=== PATIENT | female | born 1950 | race Caucasian/White ===

== ENCOUNTER 2020-09-23 09:06 | Inpatient (IN) | payer MEDICARE, SELFPAY ==
[2020-09-23] VITALS (9 sets, daily range): BP systolic 117–155; BP diastolic 60–78; PULSE 48–60; RESP 10–18; TEMP 36.4–36.8; O2SAT 97–100; BMI 29.5
--- NOTE | 2020-09-23 | ECG_ITS ---
Test Reason : SOB Blood Pressure : / mmHG Vent. Rate : 052 BPM Atrial Rate : 052 BPM P-R Int : 154 ms QRS Dur : 150 ms QT Int : 512 ms P-R-T Axes : 045 -35 -16 degrees QTc Int : 476 ms Sinus bradycardia Left axis deviation Right bundle branch block Voltage criteria for left ventricular hypertrophy Abnormal ECG When compared with ECG of 03-JUL-2006 18:27, T wave inversion no longer evident in Anterolateral leads Referred By: Generic ED Physician Electronically Signed By:Loi Dorsey
--- NOTE | ~2020-09-23 | XR_ITS ---
EXAMINATION: XR CHEST CLINICAL INFORMATION: Chest pain, SOB COMPARISON: None TECHNIQUE: 2 views of the chest were obtained. FINDINGS: No significant abnormality is noted involving the heart, lungs, mediastinum, bony thorax or soft tissues. XR/XR chest 2V IMPRESSION: Unremarkable chest exam
--- NOTE | ~2020-09-23 | FL_ITS ---
EXAMINATION: XR FLUOROSCOPY WITH IMAGES CLINICAL INFORMATION: Dual-lead pacemaker COMPARISON: None. TECHNIQUE: Fluoroscopy performed by Dr. Fischer. Fluoroscopy time: 20.8 minutes DAP: 108 mGycm2 Images: 2 FINDINGS: Spot views over the heart shadow dual-lead pacemaker with lead in right atrium and right ventricle. FL/FL guidance in OR IMPRESSION: Dual-lead pacemaker in heart.
--- NOTE | ~2020-09-23 | XR_ITS ---
EXAMINATION: XR CHEST CLINICAL INFORMATION: Rule out pneumothorax. COMPARISON: 09/24/2020 TECHNIQUE: Frontal view of the chest was obtained. FINDINGS: Left pectoral dual-lead pacemaker is unchanged leads in the right atrium and right ventricle. Cardiac leads overlie the chest. Cardiac silhouette is within normal limits in size for technique. The cardiac and mediastinal contours are normal. No consolidation, pneumothorax, or pleural effusion. Pulmonary vasculature is unremarkable. Mild degenerative spondylosis in the thoracic spine. XR/XR chest 1V IMPRESSION: No pneumothorax. No acute pulmonary findings.
--- NOTE | ~2020-09-23 | XR_ITS ---
EXAMINATION: XR CHEST CLINICAL INFORMATION: Evaluate for pneumothorax COMPARISON: Chest x-ray 09/23/2020 TECHNIQUE: Frontal portable view of the chest was obtained. 5:14 PM FINDINGS: Pacemaker leads in right atrium and right ventricle. Lung volume low. The central pulmonary vessels are prominent accentuated by the low inspiratory effort. No focal consolidation. No pleural effusion. There is no pneumothorax. XR/XR chest 1V IMPRESSION: 1. No pneumothorax. 2. Low inspiratory effort causing prominence of the bronchovascular markings. 3. Cardiac pacemaker.
--- NOTE | 2020-09-23 07:25 | ECG_ITS ---
Test Reason : BRADYCARDIA Blood Pressure : / mmHG Vent. Rate : 061 BPM Atrial Rate : 061 BPM P-R Int : 154 ms QRS Dur : 152 ms QT Int : 528 ms P-R-T Axes : 025 -34 100 degrees QTc Int : 531 ms Normal sinus rhythm Left axis deviation Right bundle branch block Left ventricular hypertrophy with repolarization abnormality Abnormal ECG When compared with ECG of 23-SEP-2020 09:26, T wave inversion no longer evident in Inferior leads T wave inversion now evident in Anterolateral leads QT has lengthened Referred By: Nicole Garcia Electronically Signed By:Loi Dorsey
[2020-09-23 12:10] LABS: MANUAL DIFF FLAG NO
[2020-09-23 12:12] LABS: Basophils Percent Auto 0.7 % (0-2); Eosinophils Absolute Auto 0.1 X10*3/uL (0.0-0.4); Hematocrit 39.1 % (37-47); Hemoglobin 13.1 g/dl (12.0-16.0); Imm Gran Abs Auto 0.03 X10*3/uL (0.00-0.03); Imm Gran Pct Auto 0.5 % (0.0-0.4); Lymphocytes Absolute Auto 2.5 X10*3/uL (1.2-4.9); Lymphocytes Percent Auto 41.3 % (20-40); Mean Corpuscular HGB Conc 33.5 g/dl (31.0-35.0); Mean Corpuscular Hemoglobin 28.7 pg (27.0-33.0); Mean Corpuscular Volume 85.7 fL (80-98); Mean Platelet Volume 11.1 fL (9.4-12.3); Monocytes Absolute Auto 0.3 X10*3/uL (0.1-1.2); Monocytes Percent Auto 5.3 % (2-11); Neutrophils Absolute Auto 3.1 X10*3/uL (2.0-8.3); Neutrophils Percent Auto 51.2 % (45-73); Platelet Count 193 X10*3/uL (160-400); Red Blood Count 4.56 X10*6/uL (4.20-5.50); Red Cell Distribution Width 13.3 % (11.0-16.0); White Blood Count 6.1 X10*3/uL (4.8-10.8)
--- NOTE | 2020-09-23 12:17 | ED_ITS ---
HPI - Dizziness General Chief Complaint: Dizziness Stated Complaint: dizziness,sob Time Seen by Provider: 09/23/20 11:24 Source: patient Mode of arrival: ambulatory Limitations: no limitations History of Present Illness HPI Narrative: 70 yo female with history of htn, hld and hypothyroidism here with complaints of dizziness described as lightheadeness x 1 week worsened with position changes. Today while out walking had exertional SOB, diaphoresis and some chest discomfort which resolved after about 1 hr. Feels well at rest. Has been taking 100mg losaratan daily for several months, started hctz 12.5mg one month ago and feels this past week her blood pressure has been running low. She tells me low for her has been 119/50. She has also noted the heart rate to be low at rest down to 36bpm. NO beta blockers. No recent tick bites or illneses. Related Data Home Medications Medication Instructions Recorded Confirmed ascorbic acid (vitamin C) [Vitamin 500 mg PO DAILY 09/23/20 09/23/20 C] atorvastatin 1 tab PO DAILY 09/23/20 09/23/20 hydrochlorothiazide 1 cap PO DAILY 09/23/20 09/23/20 levothyroxine 1 tab PO DAILY 09/23/20 09/23/20 losartan 1 tab PO DAILY 09/23/20 09/23/20 venlafaxine 1 cap PO DAILY 09/23/20 09/23/20 vit C,Q-Jk-uwkoi-lutein-zeaxan 1 tab PO DAILY 09/23/20 09/23/20 [PreserVision AREDS-2] Allergies Allergy/AdvReac Type Severity Reaction Status Date / Time amoxicillin [Amoxicillin] Allergy HIVES/RASH/LIP Unverified 12/20/19 17:09 SWELLING Review of Systems Review of Systems: Yes all other systems are reviewed and are negative Constitutional: Constitutional: Reports no additional constitutional complaints, Denies body ache(s), Denies chills, Denies fever(s), Denies headache(s) and Denies weakness Eyes: Eyes: Reports no additional eye complaints and Denies change in vision ENT: Reports system reviewed and no additional complaints, except as documented, Reports dizziness, Denies headache(s), Denies nasal congestion, Denies nasal discharge and Denies neck pain Cardiovascular: Cardiovascular: Reports no additional cardiovascular complaints, Reports chest pain, Denies leg edema and Reports dyspnea Respiratory: Respiratory: Reports no additional respiratory complaints, Denies cough and Reports dyspnea Gastrointestinal: Gastrointestinal: Reports no additional gastrointestinal complaints, Denies abdominal pain, Denies diarrhea, Denies nausea and Denies vomiting Genitourinary: Genitourinary: Reports no additional female genitourinary complaints and Denies urinary incontinence Musculoskeletal: Musculoskeletal: Reports no additional musculoskeletal complaints, Denies back pain, Denies arthralgias, Denies joint swelling, Denies neck pain, Denies numbness and Denies tingling Integumentary/Breasts: Skin/Breast: Reports system reviewed and no additional complaints, except as docu and Denies rash Neurologic: Reports system reviewed and no additional complaints, except as documented, Denies Abnormal speech present, Reports dizziness, Denies headache(s), Denies numbness, Denies tingling and Denies weakness PMFSH Past Medical History Attestation statement: The following information was validated with the patient. Source: old records reviewed and nursing notes reviewed Medical History (Updated 09/23/20 @ 17:05 by Demetrio Johnson NP) Breast CA HLD (hyperlipidemia) HTN (hypertension) Hypothyroidism Social History Social History Alcohol intake: never Smoked in Last 30 Days: No Use of substances other than those prescribed or required for medical reasons: No Advance Directives: Yes Advance Directives Information Provided: Yes Advance Directives on File: No Physical Exam Vital Signs: Vital Signs: Last Vital Signs Temp 97.6 F 09/23/20 15:20 Pulse 54 09/23/20 15:20 Resp 18 09/23/20 15:20 BP 137/63 09/23/20 15:20 Pulse Ox 98 09/23/20 15:20 Body Mass Index 29.5 Const: General: cooperative, healthy appearing, comfortable and no acute distress Orientation/consciousness: patient oriented x3 Limitations: no limitations HENMT: Head: Yes normal to inspection Ears: hearing grossly normal bilaterally General nose exam: Normal external nose present Face and sinus: Yes normal facial exam Mouth: Normal oral and palatal mucosa present Throat: Yes posterior oropharynx normal Eyes: General: appearance normal, both eyes and all related structures Pupils: Equal, round and reactive pupils present Neck: Neck: Yes normal visual inspection Chest: Chest palpation & inspection: normal inspection of the chest Resp: Effort & Inspection: normal respiratory effort Auscultation: clear to auscultation bilaterally Cardio: Rate: regular rate Rhythm: regular rhythm Peripheral pulses: Peripheral pulses 2+ throughout GI: Inspection: Yes normal to inspection Palpation (GI): Soft to palpation and nontender Auscultation: normal bowel sounds Back/Spine/Pelvis: Thoracic/Lumbar Spine: thoracic and lumbar spine normal to inspection Skin: General skin exam: no rashes or lesions noted Neuro: General: patient oriented x3, no focal motor deficits and normal sensation to monofilament Cranial nerves: Yes CN's II-XII intact bilaterally, Yes Equal, round and reactive pupils present, Yes Bilaterally intact EOM present, Yes Nystagmus not present, Yes Normal facial strength present and Yes Midline tongue present Cognition (Neuro): normal cognition Speech: No Abnormal speech present Gait exam (Neuro): Normal gait present Motor exam (neuro): 5/5 motor strength present throughout Sensory Exam: Normal double simultaneous stimulation for sensation Coordination: [id number] test normal, [id number] test normal and tandem gait normal Extrem: General: Yes normal to inspection, Yes no pedal edema and Yes no calf tenderness Course Course Course Narrative: 70 yo female here with dizziness with position changes x 1 week with noted low bp and low hr at home now with exertional SOB, diaphoresis and chest discomfort. Normal neuro exam. HD stable with mild bradycardia 56. Will check labs, EKG, CXR, orthostatics 1300-Labs unremarkable with exception of mildly elevated troponin. Plan for repeat 3hr. 1530-Repeat troponin pending. Patient had single episode of bradycardia down to 35 with variable p waves to QRS. ?second degree heart block but then returned to rate 61 NSR. BP stable. Will d/w cardiology. 1545-Discussed with Dr Dorsey. Agrees second degree heart block on rhythm strip with heart rate 34 on strip noted. Recommends admit for pacemaker. Strict bed rest. Atropine at bedside. Admit to tele. Spoke to [facility] for fu ture placement and Dr Allen on vacation. Cardiology aware and Dr Fischer will place cardiology tomorrow afternoon. 1600-Dicscussed patient with Dr Starkey who accepted admission. MDM - Dizziness MDM Narrative Medical decision making narrative: anemia, electrolyte abnormality, angina, pe, symptomatic bradycardia Differential Diagnosis Differential diagnosis: Likely orthostatic hypotension Medical Records Attestation: I reviewed the patient's medical records. Lab Data Attestation: I reviewed the patient's lab results. Result diagrams: 09/23/20 12:04 09/23/20 12:05 Labs: Lab Results 09/23/20 09/23/20 09/23/20 Range/Units 12:03 12:04 12:04 WBC 6.1 (4.8-10.8) X10*3/uL RBC 4.56 (4.20-5.50) X10*6/uL Hgb 13.1 (12.0-16.0) g/dl Hct 39.1 (37-47) % MCV 85.7 (80-98) fL MCH 28.7 (27.0-33.0) pg MCHC 33.5 (31.0-35.0) g/dl RDW 13.3 (11.0-16.0) % Plt Count 193 (160-400) X10*3/uL MPV 11.1 (9.4-12.3) fL Immature Gran % (Auto) 0.5 H (0.0-0.4) % Neut % (Auto) 51.2 (45-73) % Lymph % (Auto) 41.3 H (20-40) % [place] % (Auto) 5.3 (2-11) % Eos % (Auto) 1.0 (0-4) % Baso % (Auto) 0.7 (0-2) % Lymph # (Auto) 2.5 (1.2-4.9) X10*3/uL [place] # (Auto) 0.3 (0.1-1.2) X10*3/uL Eos # (Auto) 0.1 (0.0-0.4) X10*3/uL Baso # (Auto) 0.0 (0.0-0.2) X10*3/uL Abs Immat Gran (auto) 0.03 (0.00-0.03) X10*3/uL Absolute Neuts (auto) 3.1 (2.0-8.3) X10*3/uL Absolute Nucleated RBC 0.000 (0.0-0.012) X10*3/uL Nucleated RBC % (auto) 0.0 (0.0-0.2) /100WBC D-Dimer NG/ML Sodium (135-145) mmol/L Potassium (3.3-5.1) mmol/L Chloride (96-108) mmol/L Carbon Dioxide (22-29) mmol/L Anion Gap (12-20) BUN (9-16) mg/dL Creatinine (0.5-1.4) mg/dL Estim Creat Clear Calc Estimated GFR Random Glucose (60-115) mg/dL Calcium (8.4-10.2) mg/dL Magnesium (1.6-2.6) mg/dL Total Bilirubin (0.0-1.0) mg/dL Direct Bilirubin (0.0-0.5) mg/dL AST (5-31) U/L ALT (0-31) U/L Alkaline Phosphatase (39-117) U/L Troponin I High Sens 16.8 (<3.5-17.0) ng/L Total Protein (6.5-8.0) g/dL Albumin (3.5-5.0) g/dL TSH 0.93 (0.32-4.0) uIU/mL 09/23/20 09/23/20 09/23/20 Range/Units 12:05 12:05 15:07 WBC (4.8-10.8) X10*3/uL RBC (4.20-5.50) X10*6/uL Hgb (12.0-16.0) g/dl Hct (37-47) % MCV (80-98) fL MCH (27.0-33.0) pg MCHC (31.0-35.0) g/dl RDW (11.0-16.0) % Plt Count (160-400) X10*3/uL MPV (9.4-12.3) fL Immature Gran % (Auto) (0.0-0.4) % Neut % (Auto) (45-73) % Lymph % (Auto) (20-40) % [place] % (Auto) (2-11) % Eos % (Auto) (0-4) % Baso % (Auto) (0-2) % Lymph # (Auto) (1.2-4.9) X10*3/uL [place] # (Auto) (0.1-1.2) X10*3/uL Eos # (Auto) (0.0-0.4) X10*3/uL Baso # (Auto) (0.0-0.2) X10*3/uL Abs Immat Gran (auto) (0.00-0.03) X10*3/uL Absolute Neuts (auto) (2.0-8.3) X10*3/uL Absolute Nucleated RBC (0.0-0.012) X10*3/uL Nucleated RBC % (auto) (0.0-0.2) /100WBC D-Dimer < 200 NG/ML Sodium 141 (135-145) mmol/L Potassium 4.5 (3.3-5.1) mmol/L Chloride 104 (96-108) mmol/L Carbon Dioxide 32 H (22-29) mmol/L Anion Gap 10 L (12-20) BUN 14 (9-16) mg/dL Creatinine 0.83 (0.5-1.4) mg/dL Estim Creat Clear Calc 62.3 Estimated GFR > 60 Random Glucose 91 (60-115) mg/dL Calcium 9.6 (8.4-10.2) mg/dL Magnesium 2.3 (1.6-2.6) mg/dL Total Bilirubin 0.7 (0.0-1.0) mg/dL Direct Bilirubin 0.2 (0.0-0.5) mg/dL AST 28 (5-31) U/L ALT 36 H (0-31) U/L Alkaline Phosphatase 82 (39-117) U/L Troponin I High Sens 16.4 (<3.5-17.0) ng/L Total Protein 7.1 (6.5-8.0) g/dL Albumin 4.3 (3.5-5.0) g/dL TSH (0.32-4.0) uIU/mL Imaging Data Chest x-ray: Attestation: I personally reviewed and interpreted this imaging study as follows: Radiologist's impression: [address] [id number] ReportSigned Patient: Christopher Sarmiento#: [id number]: 2Acct:[id number]/Sex: 70 / FADM Date: 09/23/20Loc: [facility] Dr: Ordering Physician: DEMETRIO JOHNSON NP Date of Service: 09/23/20 Procedure(s): XR chest 2V Accession Number(s): [id number] cc: DEMETRIO JOHNSON NP~ EXAMINATION: XR CHEST CLINICAL INFORMATION: Chest pain, SOB COMPARISON: None TECHNIQUE: 2 views of the chest were obtained. FINDINGS: No significant abnormality is noted involving the heart, lungs, mediastinum, bony thorax or soft tissues. XR/XR chest 2V IMPRESSION: Unremarkable chest exam ECG Data Attestation: I personally reviewed and interpreted this ECG as follows: ECG interpretation date: 09/23/20 ECG interpretation time: 09:26 Interpretation: SB with rate 52, nromal pr, normal qrs, normal wtc, RBBB, fl ipped t waves leads v3 Discharge Plan Discharge Clinical Impression: Symptomatic bradycardia Patient Disposition: Admitted As Inpatient Prescriptions: No Action atorvastatin 40 mg tablet 1 tab PO DAILY RF: 0 venlafaxine 37.5 mg capsule,extended release 24hr 1 cap PO DAILY RF: 0 levothyroxine 100 mcg tablet 1 tab PO DAILY RF: 0 ascorbic acid (vitamin C) [Vitamin C] 500 mg Tablet 500 mg PO DAILY RF: 0 hydrochlorothiazide 12.5 mg capsule 1 cap PO DAILY RF: 0 losartan 100 mg tablet 1 tab PO DAILY RF: 0 PreserVision AREDS-2 250-90-40-1 mg Capsule 1 tab PO DAILY RF: 0
[2020-09-23 12:24] LABS: D Dimer < 200 NG/ML
[2020-09-23 12:54] LABS: Alanine Aminotransferase 36 U/L (0-31); Albumin Level 4.3 g/dL (3.5-5.0); Alkaline Phosphatase 82 U/L (39-117); Anion Gap 10 (12-20); Aspartate Amino Transferase 28 U/L (5-31); Bilirubin Direct 0.2 mg/dL (0.0-0.5); Bilirubin Total 0.7 mg/dL (0.0-1.0); Blood Urea Nitrogen 14 mg/dL (9-16); Calcium 9.6 mg/dL (8.4-10.2); Carbon Dioxide 32 mmol/L (22-29); Chloride 104 mmol/L (96-108); Creatinine Clr Calc Pharmacy 62.3; Estimated Glomerular Filt Rate > 60; Glucose Random 91 mg/dL (60-115); Magnesium 2.3 mg/dL (1.6-2.6); Potassium 4.5 mmol/L (3.3-5.1); Sodium 141 mmol/L (135-145); Total Protein 7.1 g/dL (6.5-8.0)
[2020-09-23 12:57] LABS: Troponin-I High Sensitivity 16.8 ng/L (<3.5-17.0)
[2020-09-23 13:14] LABS: Thyroid Stimulating Hormone 0.93 uIU/mL (0.32-4.0)
--- NOTE | 2020-09-23 15:09 | PC.NURSE ---
episode of bradycardia hr in the 30s. md to bedside, ekg obtained and second trop drawn
[2020-09-23 15:48] LABS: Troponin-I High Sensitivity 16.4 ng/L (<3.5-17.0)
--- NOTE | 2020-09-23 16:32 | PHA.MEDREC ---
Pharmacy Consult ? Medication Reconciliation Pharmacy has completed the medication reconciliation.
--- NOTE | 2020-09-23 17:08 | P.EN_ITS ---
Event Note Date of Service: 09/23/20 Event Note: the patient was seen and evaluated with Vonda Ellis NP. I agree with her note, assessment and plan with the following. A 70 years old lady with PMH of HTN, HLD and hypothyroidism who presented to the hospital with lightheadedness, shortness of breath and chest discomfort. She reported these episodes for over a week right middle in the last for almost 1 hour before resolving. Noted to have low heart rate at home. In the emergency was noted to have an episode of bradycardia 35. EKG showing second-degree heart block. Plan to admitted for pacemaker placement. Symptomatic bradycardia Has second-degree heart block on EKG Avoid any david blockers Cardiology involved Keep NPO past midnight for pacemaker placement in the morning Rest of evaluations by CLIENT RESOLUTION SPECIALIST note.
--- NOTE | 2020-09-23 17:26 | PM.IMHP ---
History of Present Illness Date of Service: 09/23/20 Chief Complaint: Dizziness 70-year-old woman presenting to the ER with complaints of dizziness and lightheadedness for at least a week that worsened with position all changes. She had some shortness of breath with walking today, she became diaphoretic and had chest pain. Her blood pressure had been running low for several months since she had started hydrochlorothiazide and had been on losartan. Her heart rate at rest was in the 30s and she does not report that she is on any beta-blockers. TSH 0.93, QTC 476 with sinus bradycardia and mobitz type II noted on EKG. She will likely need pacemaker placement. Review of Systems Review of Systems: Denies any recent fever chills or decrease in appetite respiratory denies any shortness of breath coverage production cardiovascular See HPI gastrointestinal denies any dysphagia abdominal pain nausea vomiting or diarrhea genitourinary denies any dysuria frequency or hematuria musculoskeletal denies any joint pain or swelling neuropsych denies any weakness or seizures all other systems reviewed are negative [facility] Medical History (Updated 09/23/20 @ 17:05 by Nicole Garcia NP) Breast CA HLD (hyperlipidemia) HTN (hypertension) Hypothyroidism Social History Alcohol intake: never Smoked in Last 30 Days: No Use of substances other than those prescribed or required for medical reasons: No Advance Directives: Yes Advance Directives Information Provided: Yes Advance Directives on File: No Meds Allergies Allergy/AdvReac Type Severity Reaction Status Date / Time amoxicillin [Amoxicillin] Allergy HIVES/RASH/LIP Unverified 12/20/19 17:09 SWELLING Active Medications: Current Medications Generic Name Dose Route Start Last Admin Trade Name Freq PRN Reason Stop Dose Admin Pharmacy Consult 1 each 09/23/20 16:10 Consult Rx Perform Med Rec MISCELLANE ONCE PRN Consult order Home Medications Medication Instructions Recorded Confirmed Last Taken Type ascorbic acid (vitamin C) [Vitamin 500 mg PO DAILY 09/23/20 09/23/20 09/22/20 History C] atorvastatin 1 tab PO DAILY 09/23/20 09/23/20 09/22/20 History hydrochlorothiazide 1 cap PO DAILY 09/23/20 09/23/20 09/22/20 History levothyroxine 1 tab PO DAILY 09/23/20 09/23/20 09/23/20 History losartan 1 tab PO DAILY 09/23/20 09/23/20 09/22/20 History venlafaxine 1 cap PO DAILY 09/23/20 09/23/20 09/22/20 History vit C,D-Rj-inndj-lutein-zeaxan 1 tab PO DAILY 09/23/20 09/23/20 09/22/20 History [PreserVision AREDS-2] Physical Exam Vital Signs and Narrative: Vital Signs: Last Vital Signs Temp 97.6 F 09/23/20 15:20 Pulse 54 09/23/20 15:20 Resp 18 09/23/20 15:20 BP 137/63 09/23/20 15:20 Pulse Ox 98 09/23/20 15:20 Body Mass Index 29.5 Appearing in no acute distress head is normocephalic atraumatic eyes pupils are PERRLA sclera is anicteric mouth throat mucous membranes are intact and moist neck is supple no lymphadenopathy, no JVD noted lung sounds are clear to auscultation heart regular rate rhythm, clear S1, S2 positive bowel sounds, abdomen is soft, nontender neuro patient is alert x3, no focal deficits Results Labs CBC and Chem 7: 09/23/20 12:04 09/23/20 12:05 Labs: Laboratory Results - last 24 hr 09/23/20 09/23/20 09/23/20 12:03 12:04 12:04 MCV 85.7 MCH 28.7 MCHC 33.5 RDW 13.3 Plt Count 193 MPV 11.1 Immature Gran % (Auto) 0.5 H Neut % (Auto) 51.2 Lymph % (Auto) 41.3 H [place] % (Auto) 5.3 Eos % (Auto) 1.0 Baso % (Auto) 0.7 Lymph # (Auto) 2.5 [place] # (Auto) 0.3 Eos # (Auto) 0.1 Baso # (Auto) 0.0 Abs Immat Gran (auto) 0.03 Absolute Neuts (auto) 3.1 Absolute Nucleated RBC 0.000 Nucleated RBC % (auto) 0.0 D-Dimer Anion Gap Estim Creat Clear Calc Estimated GFR Random Glucose Calcium Magnesium Total Bilirubin Direct Bilirubin AST ALT Alkaline Phosphatase Troponin I High Sens 16.8 Total Protein Albumin TSH 0.93 09/23/20 09/23/20 09/23/20 12:05 12:05 15:07 MCV MCH MCHC RDW Plt Count MPV Immature Gran % (Auto) Neut % (Auto) Lymph % (Auto) [place] % (Auto) Eos % (Auto) Baso % (Auto) Lymph # (Auto) [place] # (Auto) Eos # (Auto) Baso # (Auto) Abs Immat Gran (auto) Absolute Neuts (auto) Absolute Nucleated RBC Nucleated RBC % (auto) D-Dimer < 200 Anion Gap 10 L Estim Creat Clear Calc 62.3 Estimated GFR > 60 Random Glucose 91 Calcium 9.6 Magnesium 2.3 Total Bilirubin 0.7 Direct Bilirubin 0.2 AST 28 ALT 36 H Alkaline Phosphatase 82 Troponin I High Sens 16.4 Total Protein 7.1 Albumin 4.3 TSH Imaging Radiologist's Impressions: Impressions Chest X-Ray 09/23/20 11:46 IMPRESSION: Unremarkable chest exam Assessment and Plan (1) Symptomatic bradycardia: Status: Acute 70-year-old woman admitted with symptomatic sinus bradycardia noted to be Mobitz type 2 on EKG Symptomatic bradycardia. Heart block. Heart rate ranging 30s to 60s -monitor on telemetry -atropine at bedside -cardiology following -cardiothoracic consult for pacemaker placement Hypertension. Stable blood pressure. - Hold BP medications at this time in light of bradycardia Hyperlipidemia - continue statin DVT prophylaxis with mechanical compression boots in light of likely pacemaker placement tomorrow attending: Dr. Cespedes full code Quality Stroke Does the patient have a stroke diagnosis?: No VTE Prior VTE?: No VTE Risk Level:: Medical - moderate - high VTE Device Contraindication: N/A - Device Ordered VTE Drug Contraindication: Treatment Not Indicated
--- NOTE | 2020-09-23 19:54 | PC.NURSE ---
Report given to accepting floor. pt on monitor and stable at this time.
--- NOTE | 2020-09-23 19:58 | PC.NURSE ---
pt a&o no sob or chest pain. pt denies no dizziness or lightheadedness. no n/v at this time.
--- NOTE | 2020-09-23 22:34 | PC.NURSE ---
pt arrived on [facility] around 2100. Alert and oriented, no complaints of dizziness or shortness of breath. Patient has been in sinus bradycardia since arriving on the unit, around 2141 patient HR dropped to 35 very briefly then increased to 50's. Atropine and extra pacer pads at the bedside. admission assessment done, no acute issues other than the bradycardia. patient will be NPO at midnight for pacemaker placement in the morning. MD aware of situation, will monitor closely throughout the night.
[2020-09-24] VITALS (13 sets, daily range): BP systolic 113–146; BP diastolic 55–69; PULSE 47–70; RESP 10–18; TEMP 36.3–36.9; O2SAT 93–99
--- NOTE | 2020-09-24 | ECG_ITS ---
Test Reason : CP Blood Pressure : / mmHG Vent. Rate : 049 BPM Atrial Rate : 049 BPM P-R Int : 160 ms QRS Dur : 146 ms QT Int : 528 ms P-R-T Axes : 046 -37 -56 degrees QTc Int : 476 ms Sinus bradycardia Left axis deviation Right bundle branch block Voltage criteria for left ventricular hypertrophy T wave abnormality, consider inferior ischemia Abnormal ECG When compared to the previous EKG of No significant changes seen Referred By: Francis Armando Electronically Signed By:Loi Dorsey
[2020-09-24] MEDS: 0.9 % Sodium Chloride Flush 3 ML SYRINGE IVFLUSH ×3 (01:33→20:42)
[2020-09-24] MEDS: Acetaminophen 325 MG TABLET 650 MG PO (03:45)
[2020-09-24 06:15] LABS: MANUAL DIFF FLAG NO
[2020-09-24 06:20] LABS: Basophils Percent Auto 0.5 % (0-2); Eosinophils Absolute Auto 0.1 X10*3/uL (0.0-0.4); Eosinophils Percent Auto 1.5 % (0-4); Hematocrit 38.5 % (37-47); Hemoglobin 12.7 g/dl (12.0-16.0); Imm Gran Abs Auto 0.03 X10*3/uL (0.00-0.03); Imm Gran Pct Auto 0.5 % (0.0-0.4); Lymphocytes Absolute Auto 2.4 X10*3/uL (1.2-4.9); Lymphocytes Percent Auto 36.2 % (20-40); Mean Corpuscular Hemoglobin 28.3 pg (27.0-33.0); Mean Corpuscular Volume 85.9 fL (80-98); Mean Platelet Volume 11.3 fL (9.4-12.3); Monocytes Absolute Auto 0.4 X10*3/uL (0.1-1.2); Neutrophils Absolute Auto 3.7 X10*3/uL (2.0-8.3); Neutrophils Percent Auto 55.3 % (45-73); Platelet Count 192 X10*3/uL (160-400); Red Blood Count 4.48 X10*6/uL (4.20-5.50); Red Cell Distribution Width 13.3 % (11.0-16.0); White Blood Count 6.6 X10*3/uL (4.8-10.8)
[2020-09-24] MEDS: Levothyroxine Sodium 100 MCG TABLET PO (06:31)
[2020-09-24 06:50] LABS: Anion Gap 12 (12-20); Blood Urea Nitrogen 16 mg/dL (9-16); Calcium 9.2 mg/dL (8.4-10.2); Carbon Dioxide 29 mmol/L (22-29); Chloride 106 mmol/L (96-108); Creatinine Clr Calc Pharmacy 64.7; Estimated Glomerular Filt Rate > 60; Glucose Random 97 mg/dL (60-115); Potassium 4.7 mmol/L (3.3-5.1); Sodium 142 mmol/L (135-145)
--- NOTE | 2020-09-24 07:30 | CA_ITS ---
Transthoracic Echocardiogram Patient (Last, First, Middle): Ama Sarmiento, Gender: Female Date of : 1950 Age: 70 Procedure Date: 09/24/2020 Procedure Type: Transthoracic Echocardiogram [place] [facility] [place] Height: 160.02 cm Weight: 75.75 kg BSA: 1.79 m2 Heart Rate: bpm BP: 143 / 69 mmHg Torch Straightener: GERALD Gil MD: Loi Dorsey MD Symptoms: 2 to 1 block Study Quality: Fair Conclusions: - Normal left ventricular size and systolic function. - E/E prime ratio is between 8 and 15 consistent with indeterminate filling pressures. - Normal right ventricular cavity size and systolic function. - Both atria are normal in size. Findings Left Ventricle Normal left ventricular size and systolic function. There is mildly increased left ventricular wall thickness. The visually estimated ejection fraction is between 55-60%. There is no evidence of regional wall motion abnormalities. Diastolic function is indeterminate on the basis of available data. Spectral Doppler is indicative of an impaired relaxation filling pattern. E/E prime ratio is between 8 and 15 consistent with indeterminate filling pressures. Right Ventricle Normal right ventricular cavity size and systolic function. Atria Both atria are normal in size. Aortic Valve Normal aortic valve structure and function. There is no aortic valve stenosis. There is no aortic valve regurgitation. Mitral Valve Normal mitral valve structure and function. There is trace mitral valve regurgitation. There is no mitral valve stenosis. Pulmonic Valve The pulmonic valve is likely normal. Tricuspid Valve Normal tricuspid valve structure and function. There is no tricuspid valve regurgitation. Normal right atrial pressure. There is no evidence of pulmonary hypertension. Great Vessels All visible segments of the aorta are normal in size. Venous The inferior vena cava is normal in size and collapses greater than 50% with inspiration. Pericardium/Pleural There is no evidence of pericardial effusion. Prior Study Comparison No prior study available for comparison. Measurements 2D Linear Measurements IVSd: 0.98 0.6-0.9/0.6-1.0 cm LVIDd: 3.78 3.9-5.3/4.2-5.9 cm LVIDd Index: 2.11 2.4-3.2/2.2-3.1 cm/m2 LVIDs: 2.61 2.0-3.6 cm LVPWd: 0.96 0.7-1.1 cm Ao Root: 2.70 2.1-3.5 cm LA Diam: 2.80 2.7-3.8/3.0-4.0 cm LAIDs Index: 1.56 1.5-2.3 cm/m2 LV Mass: 138.67 67-162/88-224 g LV Mass Index: 77.47 43-95/49-115 g/m2 LVOT Diam: 1.90 3.0+(-)1.3 cm 2D Systolic Function EF 4C: 64.30 >55% EF 2C: 65.80 >55% EF BiP: 66.40 >55% Mitral Valve MV Pk E: 0.83 MV PK A: 0.66 MV Decel Time: 352.00 E/A: 1.30 E'Lateral: 6.64 E'Medial: 5.66 E/E' Med: 14.70 E/E' Lat: 12.50 PHT: 103.00 MVA PHT: 2.14 Decel [place]: 2.36 Aortic Valve AoV Pk Rudolph: 1.94 AoV Mn Rudolph: 1.13 AoV VTI: 0.45 AoV Pk Grad: 15.00 Aov Mn Grad: 6.00 VALERIE Cont.VTI: 2.59 LVOT LVOT Pk Rudolph: 1.57 LVOT Mn Rudolph: 1.00 LVOT VTI: 0.41 LVOT Pk Grad: 10.00 LVOT Mn Grad: 5.00 LVOT Diam: 1.90 LVOT Area: 2.84 Diastolic Function MV Pk E: 0.83 MV Pk A: 0.66 E/A: 1.30 E'Medial: 5.66 E/E' Med: 14.70 E' Laterial: 6.64 E/E' Lat: 12.50 Tricuspid Valve TR Pk Rudolph: 1.43 TR Pk Grad: 8.00 RA Press: 3.00 RVSP: 11.00 Great Vessels Aorta Ao Root-2D: 2.70 2.0-3.7 cm Ao Asc: 2.80 2.1-3.4 cm Ao Arch: 2.40 Updated in Other Vendor System with Status of Final Loi Dorsey MD electronically signed on 09/24/2020 11:27:12 AM with status of Final
--- NOTE | 2020-09-24 09:17 | HO.ANESPROP2 ---
HPI - Anesthesia Eval Consult details Narrative: 70 yo female patient for pacemaker insertion PMFSH Past Medical History Medical History (Updated 09/24/20 @ 14:55 by Silke Vasques) Breast CA Depression Dyspnea on exertion HLD (hyperlipidemia) HTN (hypertension) Hypothyroidism Lymphedema Melanoma CASSIE (obstructive sleep apnea) Family History Family history of problems with anesthesia: No Surgical History Surgical History (Updated 09/24/20 @ 14:21 by Silke Vasques) History of bilateral mastectomy Hx of colonoscopy Status post bilateral breast reconstruction History of Problems with Anesthesia: Yes (Severe PONV for 36 hours post-op) Social History Social History Household Members: Spouse Housing: House Do you presently have visiting nurse or other home services: No Alcohol intake: never Patient Tobacco Use Status: Former Tobacco user Quit Date: 30 yrs ago Tobacco use type: Cigarette Smoked in Last 30 Days: No Use of substances other than those prescribed or required for medical reasons: No Currently Displaying Signs/Symptoms of Drug Intoxication Withdrawal: No Have you been hit, kicked, punched, or otherwise hurt by someone within the past year? If so, by whom?: No Do you feel safe in your current relationship?: Yes Is there a partner from a previous relationship who is making you feel unsafe now?: No Are you made to feel afraid or neglected: No Are you DNR?: No Advance Directives: Yes (copy not on file in hospital) Advance Directives Information Provided: Yes Advance Directives on File: No Advance Directives Date on File: 09/23/20 Do you have thoughts of harming others: None Do you have a plan to hurt others: No Plan Recently lost weight without trying: No How much weight loss: Not applicable Eating poorly because of decreased appetite: No Nutrition screen score: 0 Nutrition Risks: No Nutritional Risk Patient : No : No Poor oral hygiene: No service: No Meds Allergies Allergy/AdvReac Type Severity Reaction Status Date / Time amoxicillin [Amoxicillin] Allergy HIVES/RASH/LIP Unverified 12/20/19 17:09 SWELLING Home Medications Medication Instructions Recorded Confirmed Last Taken Type ascorbic acid (vitamin C) [Vitamin 500 mg PO DAILY 09/23/20 09/23/20 09/22/20 History C] atorvastatin 1 tab PO DAILY 09/23/20 09/23/20 09/22/20 History hydrochlorothiazide 1 cap PO DAILY 09/23/20 09/23/20 09/22/20 History levothyroxine 1 tab PO DAILY 09/23/20 09/23/20 09/23/20 History losartan 1 tab PO DAILY 09/23/20 09/23/20 09/22/20 History venlafaxine 1 cap PO DAILY 09/23/20 09/23/20 09/22/20 History vit C,E-Vx-dktkm-lutein-zeaxan 1 tab PO DAILY 09/23/20 09/23/20 09/22/20 History [PreserVision AREDS-2] Exam Height,Weight and Vital Signs: Vital Signs Temp Pulse Resp BP Pulse Ox 09/24/20 13:02 98.1 F 47 L 16 146/55 H 99 09/24/20 11:06 98.0 F 51 18 145/69 H 98 09/24/20 07:07 98.0 F 50 18 143/67 H 94 09/24/20 03:08 97.3 F 52 18 143/69 H 99 09/23/20 23:51 97.7 F 52 18 140/69 H 97 09/23/20 20:00 97.7 F 54 15 155/72 H 97 09/23/20 19:59 51 10 L 127/60 09/23/20 19:24 98.2 F 55 15 152/66 H 98 09/23/20 15:20 97.6 F 54 18 137/63 98 09/23/20 15:10 59 16 144/66 H Pertinent Lab Results Pertinent Lab Results: Lab Results 09/23/20 09/23/20 09/23/20 Range/Units 12:03 12:04 12:04 WBC 6.1 (4.8-10.8) X10*3/uL RBC 4.56 (4.20-5.50) X10*6/uL Hgb 13.1 (12.0-16.0) g/dl Hct 39.1 (37-47) % MCV 85.7 (80-98) fL MCH 28.7 (27.0-33.0) pg MCHC 33.5 (31.0-35.0) g/dl RDW 13.3 (11.0-16.0) % Plt Count 193 (160-400) X10*3/uL MPV 11.1 (9.4-12.3) fL Immature Gran % (Auto) 0.5 H (0.0-0.4) % Neut % (Auto) 51.2 (45-73) % Lymph % (Auto) 41.3 H (20-40) % [place] % (Auto) 5.3 (2-11) % Eos % (Auto) 1.0 (0-4) % Baso % (Auto) 0.7 (0-2) % Lymph # (Auto) 2.5 (1.2-4.9) X10*3/uL [place] # (Auto) 0.3 (0.1-1.2) X10*3/uL Eos # (Auto) 0.1 (0.0-0.4) X10*3/uL Baso # (Auto) 0.0 (0.0-0.2) X10*3/uL Abs Immat Gran (auto) 0.03 (0.00-0.03) X10*3/uL Absolute Neuts (auto) 3.1 (2.0-8.3) X10*3/uL Absolute Nucleated RBC 0.000 (0.0-0.012) X10*3/uL Nucleated RBC % (auto) 0.0 (0.0-0.2) /100WBC D-Dimer NG/ML Sodium (135-145) mmol/L Potassium (3.3-5.1) mmol/L Chloride (96-108) mmol/L Carbon Dioxide (22-29) mmol/L Anion Gap (12-20) BUN (9-16) mg/dL Creatinine (0.5-1.4) mg/dL Estim Creat Clear Calc Estimated GFR Random Glucose (60-115) mg/dL Calcium (8.4-10.2) mg/dL Magnesium (1.6-2.6) mg/dL Total Bilirubin (0.0-1.0) mg/dL Direct Bilirubin (0.0-0.5) mg/dL AST (5-31) U/L ALT (0-31) U/L Alkaline Phosphatase (39-117) U/L Troponin I High Sens 16.8 (<3.5-17.0) ng/L Total Protein (6.5-8.0) g/dL Albumin (3.5-5.0) g/dL TSH 0.93 (0.32-4.0) uIU/mL COVID-19 (WILL) (Negative) COVID-19 Clin Com 09/23/20 09/23/20 09/23/20 Range/Units 12:05 12:05 15:07 WBC (4.8-10.8) X10*3/uL RBC (4.20-5.50) X10*6/uL Hgb (12.0-16.0) g/dl Hct (37-47) % MCV (80-98) fL MCH (27.0-33.0) pg MCHC (31.0-35.0) g/dl RDW (11.0-16.0) % Plt Count (160-400) X10*3/uL MPV (9.4-12.3) fL Immature Gran % (Auto) (0.0-0.4) % Neut % (Auto) (45-73) % Lymph % (Auto) (20-40) % [place] % (Auto) (2-11) % Eos % (Auto) (0-4) % Baso % (Auto) (0-2) % Lymph # (Auto) (1.2-4.9) X10*3/uL [place] # (Auto) (0.1-1.2) X10*3/uL Eos # (Auto) (0.0-0.4) X10*3/uL Baso # (Auto) (0.0-0.2) X10*3/uL Abs Immat Gran (auto) (0.00-0.03) X10*3/uL Absolute Neuts (auto) (2.0-8.3) X10*3/uL Absolute Nucleated RBC (0.0-0.012) X10*3/uL Nucleated RBC % (auto) (0.0-0.2) /100WBC D-Dimer < 200 NG/ML Sodium 141 (135-145) mmol/L Potassium 4.5 (3.3-5.1) mmol/L Chloride 104 (96-108) mmol/L Carbon Dioxide 32 H (22-29) mmol/L Anion Gap 10 L (12-20) BUN 14 (9-16) mg/dL Creatinine 0.83 (0.5-1.4) mg/dL Estim Creat Clear Calc 62.3 Estimated GFR > 60 Random Glucose 91 (60-115) mg/dL Calcium 9.6 (8.4-10.2) mg/dL Magnesium 2.3 (1.6-2.6) mg/dL Total Bilirubin 0.7 (0.0-1.0) mg/dL Direct Bilirubin 0.2 (0.0-0.5) mg/dL AST 28 (5-31) U/L ALT 36 H (0-31) U/L Alkaline Phosphatase 82 (39-117) U/L Troponin I High Sens 16.4 (<3.5-17.0) ng/L Total Protein 7.1 (6.5-8.0) g/dL Albumin 4.3 (3.5-5.0) g/dL TSH (0.32-4.0) uIU/mL COVID-19 (WILL) (Negative) COVID-19 Clin Com 09/24/20 09/24/20 09/24/20 Range/Units 05:16 05:16 11:15 WBC 6.6 (4.8-10.8) X10*3/uL RBC 4.48 (4.20-5.50) X10*6/uL Hgb 12.7 (12.0-16.0) g/dl Hct 38.5 (37-47) % MCV 85.9 (80-98) fL MCH 28.3 (27.0-33.0) pg MCHC 33.0 (31.0-35.0) g/dl RDW 13.3 (11.0-16.0) % Plt Count 192 (160-400) X10*3/uL MPV 11.3 (9.4-12.3) fL Immature Gran % (Auto) 0.5 H (0.0-0.4) % Neut % (Auto) 55.3 (45-73) % Lymph % (Auto) 36.2 (20-40) % [place] % (Auto) 6.0 (2-11) % Eos % (Auto) 1.5 (0-4) % Baso % (Auto) 0.5 (0-2) % Lymph # (Auto) 2.4 (1.2-4.9) X10*3/uL [place] # (Auto) 0.4 (0.1-1.2) X10*3/uL Eos # (Auto) 0.1 (0.0-0.4) X10*3/uL Baso # (Auto) 0.0 (0.0-0.2) X10*3/uL Abs Immat Gran (auto) 0.03 (0.00-0.03) X10*3/uL Absolute Neuts (auto) 3.7 (2.0-8.3) X10*3/uL Absolute Nucleated RBC 0.000 (0.0-0.012) X10*3/uL Nucleated RBC % (auto) 0.0 (0.0-0.2) /100WBC D-Dimer NG/ML Sodium 142 (135-145) mmol/L Potassium 4.7 (3.3-5.1) mmol/L Chloride 106 (96-108) mmol/L Carbon Dioxide 29 (22-29) mmol/L Anion Gap 12 (12-20) BUN 16 (9-16) mg/dL Creatinine 0.80 (0.5-1.4) mg/dL Estim Creat Clear Calc 64.7 Estimated GFR > 60 Random Glucose 97 (60-115) mg/dL Calcium 9.2 (8.4-10.2) mg/dL Magnesium (1.6-2.6) mg/dL Total Bilirubin (0.0-1.0) mg/dL Direct Bilirubin (0.0-0.5) mg/dL AST (5-31) U/L ALT (0-31) U/L Alkaline Phosphatase (39-117) U/L Troponin I High Sens (<3.5-17.0) ng/L Total Protein (6.5-8.0) g/dL Albumin (3.5-5.0) g/dL TSH (0.32-4.0) uIU/mL COVID-19 (WILL) Negative (Negative) COVID-19 Clin Com See Note 09/23/20: EKG- Normal sinus rhythm. Rate 61 Left axis deviation Right bundle branch block Left ventricular hypertrophy with repolarization abnormality Abnormal ECG When compared with ECG of 23-SEP-2020 09:26, T wave inversion no longer evident in Inferior leads T wave inversion now evident in Anterolateral leads QT has lengthened 09/24/20: WILLIAN- Normal left ventricular size and systolic function. There is mildly increased left ventricular wall thickness. The visually estimated ejection fraction is between 55-60%. There is no evidence of regional wall motion abnormalities. Spectral Doppler is indicative of an impaired relaxation filling pattern. - E/E prime ratio is between 8 and 15 consistent with indeterminate filling pressures. - Normal right ventricular cavity size and systolic function. - Both atria are normal in size. Airway Mallampati Class: II TM Dist: >3cm Neck ROM: Full Heart: RRR Lungs: CTAB Assessment and Plan Assessment Anesthesia Assessment: Anesthesia Plan Discussed and Chart Reviewed Final Anesthetic Review NPO: Yes ASA Class: III and Emergency Final Preanesthetic Review: No Changes in Pt Med Stat, Meds/Allgs Chart Reviewed, Consent Obtained/Reviewed and Anes Risks/Benef Reviewed Patient Risk: Intermediate Procedure Risk: Intermediate Assessment/Block/Sedation in SS: Assess/Block/Sedation- Anesthetic Plan Anesthetic Plan: MAC: Disposition: Inp. Admit - IMC
[2020-09-24] MEDS: Atorvastatin Calcium 40 MG TABLET PO (09:35)
[2020-09-24] MEDS: Venlafaxine HCl ER 37.5 MG CAP.ER.24H PO (09:35)
[2020-09-24] MEDS: Ascorbic Acid 500 MG TABLET PO (09:36)
--- NOTE | 2020-09-24 09:36 | P.CONCA_ITS ---
History of Present Illness History of Present Illness Date of Service: 09/24/20 Requesting physician: Francis Armando Chief complaint: 2:1 AV block Narrative: 70-year-old female here for dizziness and bradycardia noticed at home. She has background of hypertension. Recently her blood pressure medications were changed. She complained of dizziness to her physician a few times. This was thought to be due to medication changes and maybe some orthostasis. She said she was checking a friend's blood pressure and decided check her heart rate and was in 30s. She said she did not have much symptoms at that time. Off and on she has been noticing some dizziness. She also had some dyspnea on exertion which has been longstanding for her. She called her primary care physician for dyspnea as well as off and on bradycardia that she has noticed an she was advised to come to the ER. In the ED she had transient 2-1 av block and she was admitted. Blood workup was normal. No tick bites. [facility] Past Medical History Medical History (Updated 09/23/20 @ 17:05 by Nicole Garcia NP) Breast CA HLD (hyperlipidemia) HTN (hypertension) Hypothyroidism Social History Social History Household Members: Spouse Housing: House Do you presently have visiting nurse or other home services: No Alcohol intake: never Patient Tobacco Use Status: Former Tobacco user Tobacco use type: Cigarette Smoked in Last 30 Days: No Use of substances other than those prescribed or required for medical reasons: No Currently Displaying Signs/Symptoms of Drug Intoxication Withdrawal: No Have you been hit, kicked, punched, or otherwise hurt by someone within the past year? If so, by whom?: No Do you feel safe in your current relationship?: Yes Is there a partner from a previous relationship who is making you feel unsafe now?: No Are you made to feel afraid or neglected: No Advance Directives: Yes (copy not on file in hospital) Advance Directives Information Provided: Yes Advance Directives on File: No Advance Directives Date on File: 09/23/20 Do you have thoughts of harming others: None Do you have a plan to hurt others: No Plan Recently lost weight without trying: No How much weight loss: Not applicable Eating poorly because of decreased appetite: No Nutrition screen score: 0 Nutrition Risks: No Nutritional Risk Patient : No : No Poor oral hygiene: No service: No Meds Allergies Allergy/AdvReac Type Severity Reaction Status Date / Time amoxicillin [Amoxicillin] Allergy HIVES/RASH/LIP Unverified 12/20/19 17:09 SWELLING Active Medications: Current Medications Generic Name Dose Route Start Last Admin Trade Name Freq PRN Reason Stop Dose Admin Acetaminophen 650 mg 09/23/20 17:39 09/24/20 03:45 Acetaminophen 325 Mg Tablet PO 650 mg Q6H PRN Administration Pain, Mild (Pain Scale 1-3) Ascorbic Acid 500 mg 09/24/20 09:00 Ascorbic Acid 500 Mg Tablet PO DAILY [facility] Atorvastatin Calcium 40 mg 09/24/20 09:00 Atorvastatin Calcium 40 Mg Tablet PO DAILY [facility] Atropine Sulfate 0.5 mg 09/23/20 17:43 Atropine Sulfate 1 Mg/10 Ml Syringe IVPUSH Q5M PRN BRADYCARDIA Levothyroxine Sodium 100 mcg 09/24/20 06:00 09/24/20 06:31 Levothyroxine Sodium 100 Mcg Tablet PO 100 mcg DAILY@0600 [facility] Administration Pharmacy Consult 1 each 09/23/20 16:10 Consult Rx Perform Med Rec MISCELLANE ONCE PRN Consult order Sodium Chloride 3 ml 09/24/20 00:00 09/24/20 01:33 0.9 % Sodium Chloride Flush 3 Ml Syringe IVFLUSH 3 ml QSHIFT [facility] Administration Venlafaxine HCl 37.5 mg 09/24/20 09:00 Venlafaxine Hcl Er 37.5 Mg Cap.Er.24h PO DAILY [facility] Home Medications Medication Instructions Recorded Confirmed Last Taken Type ascorbic acid (vitamin C) [Vitamin 500 mg PO DAILY 09/23/20 09/23/20 09/22/20 History C] atorvastatin 1 tab PO DAILY 09/23/20 09/23/20 09/22/20 History hydrochlorothiazide 1 cap PO DAILY 09/23/20 09/23/20 09/22/20 History levothyroxine 1 tab PO DAILY 09/23/20 09/23/20 09/23/20 History losartan 1 tab PO DAILY 09/23/20 09/23/20 09/22/20 History venlafaxine 1 cap PO DAILY 09/23/20 09/23/20 09/22/20 History vit C,K-If-qykcq-lutein-zeaxan 1 tab PO DAILY 09/23/20 09/23/20 09/22/20 History [PreserVision AREDS-2] Physical Exam Vital Signs: Vital Signs: Last Vital Signs Temp 98.0 F 09/24/20 07:07 Pulse 50 09/24/20 07:07 Resp 18 09/24/20 07:07 BP 143/67 H 09/24/20 07:07 Pulse Ox 94 09/24/20 07:07 Body Mass Index 29.5 GENERAL APPEARANCE: in no acute distress, pleasant. NECK: no carotid bruit, no jugular venous distention. SKIN: no suspicious lesions, warm and dry. HEART: no murmurs, regular rate and rhythm. LUNGS: clear to auscultation bilaterally. ABDOMEN: soft, nontender. EXTREMITIES: no edema. PERIPHERAL PULSES: equal. NEUROLOGIC: No gross deficits, AAO X 3 Results Labs and Meds Result diagrams: 09/24/20 05:16 09/24/20 05:16 Lab results: Laboratory Results - last 24 hr 09/23/20 09/23/20 09/23/20 12:03 12:04 12:04 WBC 6.1 RBC 4.56 Hgb 13.1 Hct 39.1 MCV 85.7 MCH 28.7 MCHC 33.5 RDW 13.3 Plt Count 193 MPV 11.1 Immature Gran % (Auto) 0.5 H Neut % (Auto) 51.2 Lymph % (Auto) 41.3 H [place] % (Auto) 5.3 Eos % (Auto) 1.0 Baso % (Auto) 0.7 Lymph # (Auto) 2.5 [place] # (Auto) 0.3 Eos # (Auto) 0.1 Baso # (Auto) 0.0 Abs Immat Gran (auto) 0.03 Absolute Neuts (auto) 3.1 Absolute Nucleated RBC 0.000 Nucleated RBC % (auto) 0.0 D-Dimer Sodium Potassium Chloride Carbon Dioxide Anion Gap BUN Creatinine Estim Creat Clear Calc Estimated GFR Random Glucose Calcium Magnesium Total Bilirubin Direct Bilirubin AST ALT Alkaline Phosphatase Troponin I High Sens 16.8 Total Protein Albumin TSH 0.93 09/23/20 09/23/20 09/23/20 12:05 12:05 15:07 WBC RBC Hgb Hct MCV MCH MCHC RDW Plt Count MPV Immature Gran % (Auto) Neut % (Auto) Lymph % (Auto) [place] % (Auto) Eos % (Auto) Baso % (Auto) Lymph # (Auto) [place] # (Auto) Eos # (Auto) Baso # (Auto) Abs Immat Gran (auto) Absolute Neuts (auto) Absolute Nucleated RBC Nucleated RBC % (auto) D-Dimer < 200 Sodium 141 Potassium 4.5 Chloride 104 Carbon Dioxide 32 H Anion Gap 10 L BUN 14 Creatinine 0.83 Estim Creat Clear Calc 62.3 Estimated GFR > 60 Random Glucose 91 Calcium 9.6 Magnesium 2.3 Total Bilirubin 0.7 Direct Bilirubin 0.2 AST 28 ALT 36 H Alkaline Phosphatase 82 Troponin I High Sens 16.4 Total Protein 7.1 Albumin 4.3 TSH 09/24/20 09/24/20 05:16 05:16 WBC 6.6 RBC 4.48 Hgb 12.7 Hct 38.5 MCV 85.9 MCH 28.3 MCHC 33.0 RDW 13.3 Plt Count 192 MPV 11.3 Immature Gran % (Auto) 0.5 H Neut % (Auto) 55.3 Lymph % (Auto) 36.2 [place] % (Auto) 6.0 Eos % (Auto) 1.5 Baso % (Auto) 0.5 Lymph # (Auto) 2.4 [place] # (Auto) 0.4 Eos # (Auto) 0.1 Baso # (Auto) 0.0 Abs Immat Gran (auto) 0.03 Absolute Neuts (auto) 3.7 Absolute Nucleated RBC 0.000 Nucleated RBC % (auto) 0.0 D-Dimer Sodium 142 Potassium 4.7 Chloride 106 Carbon Dioxide 29 Anion Gap 12 BUN 16 Creatinine 0.80 Estim Creat Clear Calc 64.7 Estimated GFR > 60 Random Glucose 97 Calcium 9.2 Magnesium Total Bilirubin Direct Bilirubin AST ALT Alkaline Phosphatase Troponin I High Sens Total Protein Albumin TSH Imaging Radiologist's impression: Impressions Chest X-Ray 09/23/20 11:46 IMPRESSION: Unremarkable chest exam Assessment and Plan (1) Symptomatic bradycardia: Status: Acute Pleasant 70-year-old female with transient 2:1 av block and dizziness at home. Her baseline EKG is showing sinus bradycardia, right bundle-branch block and left anterior fascicular block. Reviewing her EKGs at [facility] she had bifascicular block before. She has significant conduction disease and is now presenting with dizziness and had 2-1 av block. I think she needs permanent pacemaker. We have arranged already and she will be getting it in the afternoon today. She has longstanding history of dyspnea on exertion. This will need further assessment. Echocardiography has shown no wall motion abnormality or valvular issues. Clinically she is not in heart failure right now. Thank you for allowing me to participate in the care of your patient. Please feel free to contact me if you have any questions. Procedures Date of Service Date of Service: 09/24/20
--- NOTE | 2020-09-24 09:48 | MHC.CM.PN ---
met with pt who will be having a pacemaker placed today ,pt lives with her and does not anticipate needing services when dcd
--- NOTE | 2020-09-24 10:48 | P.PNIM_ITS ---
Subjective Subjective Date of Service: 09/24/20 Interval History: Follow up bradycardia No chest pain OR today for pacer Physical Exam Vital Signs: Vital Signs: Last Vital Signs Temp 98.0 F 09/24/20 07:07 Pulse 50 09/24/20 07:07 Resp 18 09/24/20 07:07 BP 143/67 H 09/24/20 07:07 Pulse Ox 94 09/24/20 07:07 Body Mass Index 29.5 Appearing in no acute distress lung sounds are clear to auscultation heart regular rate rhythm, clear S1, S2 positive bowel sounds, abdomen is soft, nontender neuro patient is alert x3, no focal deficits Objective Data Current Medications Generic Name Dose Route Start Last Admin Trade Name Freq PRN Reason Stop Dose Admin Acetaminophen 650 mg 09/23/20 17:39 09/24/20 03:45 Acetaminophen 325 Mg Tablet PO 650 mg Q6H PRN Administration Pain, Mild (Pain Scale 1-3) Ascorbic Acid 500 mg 09/24/20 09:00 09/24/20 09:36 Ascorbic Acid 500 Mg Tablet PO 500 mg DAILY TOMMIE Administration Atorvastatin Calcium 40 mg 09/24/20 09:00 09/24/20 09:35 Atorvastatin Calcium 40 Mg Tablet PO 40 mg DAILY TOMMIE Administration Atropine Sulfate 0.5 mg 09/23/20 17:43 Atropine Sulfate 1 Mg/10 Ml Syringe IVPUSH Q5M PRN BRADYCARDIA Levothyroxine Sodium 100 mcg 09/24/20 06:00 09/24/20 06:31 Levothyroxine Sodium 100 Mcg Tablet PO 100 mcg DAILY@0600 [facility] Administration Pharmacy Consult 1 each 09/23/20 16:10 Consult Rx Perform Med Rec MISCELLANE ONCE PRN Consult order Sodium Chloride 3 ml 09/24/20 00:00 09/24/20 09:36 0.9 % Sodium Chloride Flush 3 Ml Syringe IVFLUSH 3 ml QSHIFT TOMMIE Administration Venlafaxine HCl 37.5 mg 09/24/20 09:00 09/24/20 09:35 Venlafaxine Hcl Er 37.5 Mg Cap.Er.24h PO 37.5 mg DAILY TOMMIE Administration Labs CBC & Chem 7: 09/24/20 05:16 09/24/20 05:16 Labs: Laboratory Results - last 24 hr 09/23/20 09/23/20 09/23/20 12:03 12:04 12:04 MCV 85.7 MCH 28.7 MCHC 33.5 RDW 13.3 Plt Count 193 MPV 11.1 Immature Gran % (Auto) 0.5 H Neut % (Auto) 51.2 Lymph % (Auto) 41.3 H [place] % (Auto) 5.3 Eos % (Auto) 1.0 Baso % (Auto) 0.7 Lymph # (Auto) 2.5 [place] # (Auto) 0.3 Eos # (Auto) 0.1 Baso # (Auto) 0.0 Abs Immat Gran (auto) 0.03 Absolute Neuts (auto) 3.1 Absolute Nucleated RBC 0.000 Nucleated RBC % (auto) 0.0 D-Dimer Anion Gap Estim Creat Clear Calc Estimated GFR Random Glucose Calcium Magnesium Total Bilirubin Direct Bilirubin AST ALT Alkaline Phosphatase Troponin I High Sens 16.8 Total Protein Albumin TSH 0.93 09/23/20 09/23/20 09/23/20 12:05 12:05 15:07 MCV MCH MCHC RDW Plt Count MPV Immature Gran % (Auto) Neut % (Auto) Lymph % (Auto) [place] % (Auto) Eos % (Auto) Baso % (Auto) Lymph # (Auto) [place] # (Auto) Eos # (Auto) Baso # (Auto) Abs Immat Gran (auto) Absolute Neuts (auto) Absolute Nucleated RBC Nucleated RBC % (auto) D-Dimer < 200 Anion Gap 10 L Estim Creat Clear Calc 62.3 Estimated GFR > 60 Random Glucose 91 Calcium 9.6 Magnesium 2.3 Total Bilirubin 0.7 Direct Bilirubin 0.2 AST 28 ALT 36 H Alkaline Phosphatase 82 Troponin I High Sens 16.4 Total Protein 7.1 Albumin 4.3 TSH 09/24/20 09/24/20 05:16 05:16 MCV 85.9 MCH 28.3 MCHC 33.0 RDW 13.3 Plt Count 192 MPV 11.3 Immature Gran % (Auto) 0.5 H Neut % (Auto) 55.3 Lymph % (Auto) 36.2 [place] % (Auto) 6.0 Eos % (Auto) 1.5 Baso % (Auto) 0.5 Lymph # (Auto) 2.4 [place] # (Auto) 0.4 Eos # (Auto) 0.1 Baso # (Auto) 0.0 Abs Immat Gran (auto) 0.03 Absolute Neuts (auto) 3.7 Absolute Nucleated RBC 0.000 Nucleated RBC % (auto) 0.0 D-Dimer Anion Gap 12 Estim Creat Clear Calc 64.7 Estimated GFR > 60 Random Glucose 97 Calcium 9.2 Magnesium Total Bilirubin Direct Bilirubin AST ALT Alkaline Phosphatase Troponin I High Sens Total Protein Albumin TSH Progress Note: A&P (1) Symptomatic bradycardia: Status: Acute Assessment and Plan: 70-year-old woman admitted with symptomatic sinus bradycardia noted to be Mobitz type 2 on EKG Symptomatic bradycardia. Heart block. Heart rate ranging 30s to 60s -monitor on telemetry -atropine at bedside -pacemaker today Hypertension. Stable blood pressure. - Hold BP medications at this time in light of bradycardia Hyperlipidemia - continue statin DVT prophylaxis with mechanical compression boots in light of likely pacemaker p lacement tomorrow attending: Dr. Armando full code Quality Stroke Does the patient have a stroke diagnosis?: No VTE Prior VTE?: No VTE Risk Level:: Medical - moderate - high VTE Device Contraindication: N/A - Device Ordered VTE Drug Contraindication: Treatment Not Indicated
[2020-09-24 11:41] LABS: COVID-19 Test Negative (Negative); IDNOW Serial# 9DD0AD1C
[2020-09-24] MEDS: vancomycin HCL 1,000 MG in 0.9 % Sodium Chloride 250 ML 270 MG IV (13:37)
[2020-09-24] MEDS: Scopolamine 1.5 MG PATCH.TD.3 TRANSDERMA (14:15)
[2020-09-24] MEDS: Lactated Ringers 1,000 ML 50 ML IVCONT (14:17)
--- NOTE | 2020-09-24 17:06 | PM.OP ---
Brief Operative Note Date of Service: 09/24/20 Surgeon: Kike Fischer MD Was an Aircraft Design Engineer used for this Procedure?: No Estimated blood loss (mL): 20
--- NOTE | 2020-09-24 17:09 | W.PM.OPN ---
Operative Note Operative Note Date of Service: 09/24/20 Narrative: Date of Service: 06/09/20 Narrative: Procedure: Dual chamber pacemaker Indication: complete heart block Procedure The risks, benefits, complications, alternatives and expected outcomes were discussed with the patient. Patient was prepped and draped in the usual sterile fashion. After the antibiotic was infused, lidocaine was infiltrated medial to the deltopectoral groove. An incision was made. The incision was extended to the prepectoral fascia using blunt dissection. Axillary access was obtained. The lead was positioned in the RV. We noted that in the high septum or mid-septum, R waves were less than 5 mV. The RV lead was deployed at the apical septum with better R waves noted. Appropriate sensing and thresholds were obtained. No diaphragmatic pacing occurred at high outputs. The lead was sutured to the muscle using 2 silk ties. Lead measurements were rechecked. We then proceeded to place the atrial lead. Multiple positions were attempted. Patient had LMA placed at this point to stabilize her breathing. An appropriate atrial position was obtained. A left prepectoral pocket was fashioned. The lead was attached to the generator. The system was placed in the pocket. The ICD was checked under fluoroscopy with adrquate slack noted noted. The pin of the leads was beyond the set screws. Hemostasis was verified. The pocket was closed with 3 layers. Steristrips and tegaderm were applied Medtronic Device:Medtronic [id number] Plato XT [address] FOX RV lead: 4076-52 serial [id number] Pacing impedance 779 ohms/threshold 0.5 V at 0.4 ms/impedance 779 ohms/R waves 26 mV RA lead: 4076-45 serial [id number] Pacing impedance 456 ohms/threshold 0.7 V at 0.4 ms/impedance 456 ohms/P waves 2.25 Programmed AAI<->DDD 60 to 130 BPM Plan Vanco x 1 dose CXR portable today and CXR tomorrow to r/o pneumothorax Post-op Instructions: [facility] Dr. Kike Fischer Pacemaker/ICD Instructions Site Care: Leave dressing on for 5 days. Do not shower or get the area wet for 5 days. Once you remove the dressing, there will be steri-strips in place. Do not peel off, they will fall off. Hand washing is a must when caring for your incision to prevent infections. Avoid touching your incision or using lotions, creams, or ointments until it is healed (2-4 weeks). Activity: Limit the movement of your arm on the same side as the pacemaker but do not stop moving it. Avoid stretching that arm over your head or shoulder-level or lift or carry anything heavier than 5 pounds with the left arm for 6 weeks Avoid golfing, swimming, tennis, bowling, shoveling snow or mowing the lawn for 6 weeks Follow-up instructions: You will receive a phone call for wound check in [address] [place] [address]. Please call [phone] for the [place] office if any questions or if you have any fevers, discharge, bleeding, chills Please keep the identification card for the device with you, it will be useful when you go through security during flights. Please plug in your home monitor and leave it at your bedside. Call device company if you need assistance plugging in the monitor. Please tell all your healthcare providers you have a pacemaker, especially before procedures or before a MRI. Call your doctor if you have any redness, swelling, pus from incision site, fever of 101 degrees. If you have any bleeding from the incision site, lie down and put pressure on the incision site for 30 minutes. If this does not resolve, please get transportation to the closest hospital but do not drive yourself. Kike Fischer Electrophysiology/Cardiology Attending
[2020-09-24 17:16] LABS: Lyme Abs Screen <0.90 index
--- NOTE | 2020-09-24 17:43 | PM.CNCAR ---
History of Present Illness History of Present Illness Date of Service: 09/24/20 Chief complaint: 2:1 AV block Narrative: 70 yo F w/ hx of breast cancer s/p bilateral mastectomy 20 years ago, RBBB here for CHB. PAtient has been getting lightheaded and short of breath over the last few weeks. She had an episode in the hospital during 2:1 AV block and has had intermittent AV block over the last 24 hours. She denies fevers, chills, cough, chest pain, orthopnea, PND Review of Systems Review of Systems: Yes all other systems are reviewed and are negative [facility] Past Medical History Medical History (Updated 09/24/20 @ 14:55 by Silke Vasques) Breast CA Depression Dyspnea on exertion HLD (hyperlipidemia) HTN (hypertension) Hypothyroidism Lymphedema Melanoma CASSIE (obstructive sleep apnea) Surgical History Surgical History (Updated 09/24/20 @ 14:21 by Silke Vasques) History of bilateral mastectomy Hx of colonoscopy Status post bilateral breast reconstruction Social History Social History Household Members: Spouse Housing: House Do you presently have visiting nurse or other home services: No Alcohol intake: never Patient Tobacco Use Status: Former Tobacco user Quit Date: 30 yrs ago Tobacco use type: Cigarette Smoked in Last 30 Days: No Use of substances other than those prescribed or required for medical reasons: No Currently Displaying Signs/Symptoms of Drug Intoxication Withdrawal: No Have you been hit, kicked, punched, or otherwise hurt by someone within the past year? If so, by whom?: No Do you feel safe in your current relationship?: Yes Is there a partner from a previous relationship who is making you feel unsafe now?: No Are you made to feel afraid or neglected: No Are you DNR?: No Advance Directives: Yes (copy not on file in hospital) Advance Directives Information Provided: Yes Advance Directives on File: No Advance Directives Date on File: 09/23/20 Do you have thoughts of harming others: None Do you have a plan to hurt others: No Plan Recently lost weight without trying: No How much weight loss: Not applicable Eating poorly because of decreased appetite: No Nutrition screen score: 0 Nutrition Risks: No Nutritional Risk Patient : No : No Poor oral hygiene: No service: No Meds Allergies Allergy/AdvReac Type Severity Reaction Status Date / Time amoxicillin [Amoxicillin] Allergy HIVES/RASH/LIP Unverified 12/20/19 17:09 SWELLING Active Medications: Current Medications Generic Name Dose Route Start Last Admin Trade Name Maru PRN Reason Stop Dose Admin Acetaminophen 650 mg 09/23/20 17:39 09/24/20 03:45 Acetaminophen 325 Mg Tablet PO 650 mg Q6H PRN Administration Pain, Mild (Pain Scale 1-3) Acetaminophen 650 mg 09/24/20 14:14 Acetaminophen 325 Mg Tablet PO ONCE PRN Pain, Mild (Pain Scale 1-3) Ascorbic Acid 500 mg 09/24/20 09:00 09/24/20 09:36 Ascorbic Acid 500 Mg Tablet PO 500 mg DAILY TOMMIE Administration Atorvastatin Calcium 40 mg 09/24/20 09:00 09/24/20 09:35 Atorvastatin Calcium 40 Mg Tablet PO 40 mg DAILY TOMMIE Administration Atropine Sulfate 0.5 mg 09/23/20 17:43 Atropine Sulfate 1 Mg/10 Ml Syringe IVPUSH Q5M PRN BRADYCARDIA Fentanyl 25 mcg 09/24/20 14:14 Fentanyl Citrate/Pf 100 Mcg/2 Ml Vial IVPUSH Q5M PRN Pain, Moderate (Pain Scale 4-6 Lactated Ringer's 1,000 mls @ 50 mls/hr 09/24/20 14:15 09/24/20 14:17 Lr IVCONT 50 mls/hr .Q20H TOMMIE Administration Vancomycin HCl 1,000 mg/ 270 mls @ 270 mls/hr 09/25/20 03:00 Sodium Chloride IV 09/25/20 03:59 ONCE ONE Levothyroxine Sodium 100 mcg 09/24/20 06:00 09/24/20 06:31 Levothyroxine Sodium 100 Mcg Tablet PO 100 mcg DAILY@0600 TOMMIE Administration Ondansetron HCl 4 mg 09/24/20 14:14 Ondansetron Hcl 4 Mg/2 Ml Vial IVPUSH ONCE PRN Nausea and Vomiting Oxycodone HCl 5 mg 09/24/20 14:14 Oxycodone Hcl Immed Release 5 Mg Tablet PO ONCE PRN Pain, Severe (Pain Scale 7-10) Pharmacy Consult 1 each 09/23/20 16:10 Consult Rx Perform Med Rec MISCELLANE ONCE PRN Consult order Sodium Chloride 3 ml 09/24/20 00:00 09/24/20 09:36 0.9 % Sodium Chloride Flush 3 Ml Syringe IVFLUSH 3 ml QSHIFT TOMMIE Administration Venlafaxine HCl 37.5 mg 09/24/20 09:00 09/24/20 09:35 Venlafaxine Hcl Er 37.5 Mg Cap.Er.24h PO 37.5 mg DAILY TOMMIE Administration Home Medications Medication Instructions Recorded Confirmed Last Taken Type ascorbic acid (vitamin C) [Vitamin 500 mg PO DAILY 09/23/20 09/23/20 09/22/20 History C] atorvastatin 1 tab PO DAILY 09/23/20 09/23/20 09/22/20 History hydrochlorothiazide 1 cap PO DAILY 09/23/20 09/23/20 09/22/20 History levothyroxine 1 tab PO DAILY 09/23/20 09/23/20 09/23/20 History losartan 1 tab PO DAILY 09/23/20 09/23/20 09/22/20 History venlafaxine 1 cap PO DAILY 09/23/20 09/23/20 09/22/20 History vit C,S-Bd-iundt-lutein-zeaxan 1 tab PO DAILY 09/23/20 09/23/20 09/22/20 History [PreserVision AREDS-2] Physical Exam Vital Signs: Vital Signs: Last Vital Signs Temp 98.2 F 09/24/20 17:35 Pulse 60 09/24/20 17:35 Resp 16 09/24/20 17:35 BP 116/60 09/24/20 17:35 Pulse Ox 94 09/24/20 17:35 Body Mass Index 29.5 HENMT: Head: Yes normocephalic Face and sinus: Yes dry mucous membranes Resp: Effort & Inspection: normal respiratory effort Auscultation: clear to auscultation bilaterally Cardio: Rate: bradycardic Rhythm: regular rhythm Heart sounds: no murmurs Extrem: General: Yes no pedal edema Results Labs and Meds Result diagrams: 09/24/20 05:16 09/24/20 05:16 Lab results: Laboratory Results - last 24 hr 09/23/20 09/24/20 09/24/20 16:29 05:16 05:16 WBC 6.6 RBC 4.48 Hgb 12.7 Hct 38.5 MCV 85.9 MCH 28.3 MCHC 33.0 RDW 13.3 Plt Count 192 MPV 11.3 Immature Gran % (Auto) 0.5 H Neut % (Auto) 55.3 Lymph % (Auto) 36.2 [place] % (Auto) 6.0 Eos % (Auto) 1.5 Baso % (Auto) 0.5 Lymph # (Auto) 2.4 [place] # (Auto) 0.4 Eos # (Auto) 0.1 Baso # (Auto) 0.0 Abs Immat Gran (auto) 0.03 Absolute Neuts (auto) 3.7 Absolute Nucleated RBC 0.000 Nucleated RBC % (auto) 0.0 Sodium 142 Potassium 4.7 Chloride 106 Carbon Dioxide 29 Anion Gap 12 BUN 16 Creatinine 0.80 Estim Creat Clear Calc 64.7 Estimated GFR > 60 Random Glucose 97 Calcium 9.2 Lyme Screen IgG & IgM <0.90 COVID-19 (WILL) COVID-19 Clin Com 09/24/20 11:15 WBC RBC Hgb Hct MCV MCH MCHC RDW Plt Count MPV Immature Gran % (Auto) Neut % (Auto) Lymph % (Auto) [place] % (Auto) Eos % (Auto) Baso % (Auto) Lymph # (Auto) [place] # (Auto) Eos # (Auto) Baso # (Auto) Abs Immat Gran (auto) Absolute Neuts (auto) Absolute Nucleated RBC Nucleated RBC % (auto) Sodium Potassium Chloride Carbon Dioxide Anion Gap BUN Creatinine Estim Creat Clear Calc Estimated GFR Random Glucose Calcium Lyme Screen IgG & IgM COVID-19 (WILL) Negative COVID-19 Clin Com See Note Assessment and Plan (1) Symptomatic bradycardia: Status: Acute Assessment & Plan (1) Symptomatic bradycardia: Comment: Dizziness. HR down to 30s at home. Mobitz Type II block in ER. 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 Complete heart block and 2:1 AV block I recommended a dual chamber PPM with 1-3% risk of bleeding, infection, perforation, pneumothorax, stroke, . She agreed to proceed with PPM Kike Fischer [facility] Attending Procedures Date of Service Date of Service: 09/24/20
--- NOTE | 2020-09-24 17:52 | PC.NURSE ---
Pt arrived to PACU at 1705. Pt hypoxic (72%) with simple mask to RA. O2 to 15L upon PACU arrival and sats improved with chin lift. Pt following commands to deep breathe and sats inreased to 98% within 15-20 seconds, CO2 was initially 55 and decreased to 39 with deep breathing. Dressing to left anterior chest wall is CDI without staining. Mild swelling present, cold pack over surgical site for pain prophylaxis. Sling in place on left arm.
--- NOTE | 2020-09-24 18:09 | PC.NURSE ---
Pt oriented x3, drowsy, arrived to unit 1609, APACED /nsr, VSS, SaO2 was low 92% on 2L/min NC, 4L/min titrated SaO2 94%, left chest dual pacer site w/ dressing C/D/I, no crepitus, no pericardial friction rub. Pt denies pain. Left arm in sling, instructed to no raise/or use this arm. Bed locked and in lowest position, call nicolas in reach.
[2020-09-25] MEDS: vancomycin HCL 1,000 MG in 0.9 % Sodium Chloride 250 ML 270 MG IV (02:52)
[2020-09-25 03:00] VITALS: BP 148/65; PULSE 60; RESP 12; TEMP 36.8; O2SAT 98
[2020-09-25] MEDS: Levothyroxine Sodium 100 MCG TABLET PO (05:22)
[2020-09-25 06:07] LABS: Hematocrit 36.4 % (37-47); Hemoglobin 12.1 g/dl (12.0-16.0); Mean Corpuscular HGB Conc 33.2 g/dl (31.0-35.0); Mean Corpuscular Hemoglobin 28.8 pg (27.0-33.0); Mean Corpuscular Volume 86.7 fL (80-98); Platelet Count 192 X10*3/uL (160-400); Red Cell Distribution Width 13.5 % (11.0-16.0); White Blood Count 8.4 X10*3/uL (4.8-10.8)
[2020-09-25 06:39] LABS: Anion Gap 12 (12-20); Blood Urea Nitrogen 11 mg/dL (9-16); Calcium 8.7 mg/dL (8.4-10.2); Carbon Dioxide 28 mmol/L (22-29); Chloride 107 mmol/L (96-108); Creatinine Clr Calc Pharmacy 68.9; Estimated Glomerular Filt Rate > 60; Glucose Random 110 mg/dL (60-115); Sodium 142 mmol/L (135-145)
[2020-09-25 07:00] VITALS: BP 126/59; PULSE 60; RESP 18; TEMP 37.2; O2SAT 100
[2020-09-25] MEDS: 0.9 % Sodium Chloride Flush 3 ML SYRINGE IVFLUSH (09:28)
[2020-09-25] MEDS: Atorvastatin Calcium 40 MG TABLET PO (09:28)
[2020-09-25] MEDS: Venlafaxine HCl ER 37.5 MG CAP.ER.24H PO (09:29)
[2020-09-25] MEDS: Ascorbic Acid 500 MG TABLET PO (09:29)
--- NOTE | 2020-09-25 10:15 | HO.POSTANES ---
Post Anesthesia Evaluation Post Anesthesia Evaluation Vital Signs: Vital Signs Temp Pulse Resp BP Pulse Ox 09/25/20 07:00 98.9 F 60 18 126/59 L 100 09/25/20 03:00 98.2 F 60 12 148/65 H 98 09/24/20 23:00 98.5 F 61 12 126/58 L 96 Anesthesia: General Mental Status: Awake Pain Control: Satisfactory Nausea/Vomiting: None Hydration: Adequate Anesthesia-Related Issues: No Anes. Related Issues
--- NOTE | 2020-09-25 10:57 | MHC.CM.PN ---
pt dcd home today to transport no skilled services ordered by
[2020-09-25 11:00] VITALS: BP 130/61; PULSE 51; RESP 16; TEMP 36.8; O2SAT 98
[2020-09-25] MEDS: Acetaminophen 325 MG TABLET 650 MG PO (11:31)
--- NOTE | 2020-09-25 11:45 | PM.PNCARD ---
Subjective Subjective Date of Service: 09/25/20 <EDELMIRA Machado - Last Filed: 09/25/20 12:03> 09/25/20 <Loi Dorsey MD - Last Filed: 09/25/20 12:45> Principal diagnosis: SSS, 2:1 heart block. s/p PPM insertion <EDELMIRA Machado - Last Filed: 09/25/20 12:03> Interval history: Cardiology follow up for the above. Seen at 1115. Today she reports feeling well with the exeption of low back soreness which she relates to our bed and throat discomfort. Mild soreness at PPM site. No shortness of breath, chest discomfort, lightheadedness, leg swelling. Has been OOB and steady on feet. Feels well enough to go home. <EDELMIRA Machado - Last Filed: 09/25/20 12:03> Review of Systems Review of Systems as above <EDELMIRA Machado - Last Filed: 09/25/20 12:03> Yes all other systems are reviewed and are negative <EDELMIRA Machado - Last Filed: 09/25/20 12:03> Physical Exam Vital Signs: Last Vital Signs Temp 98.2 F 09/25/20 11:00 Pulse 51 09/25/20 11:00 Resp 16 09/25/20 11:00 BP 130/61 09/25/20 11:00 Pulse Ox 98 09/25/20 11:00 Body Mass Index 29.5 <EDELMIRA Machado - Last Filed: 09/25/20 12:03> Const General: cooperative, healthy appearing, no acute distress, alert and awake <EDELMIRA Machado - Last Filed: 09/25/20 12:03> Orientation/consciousness: patient oriented x3 <EDELMIRA Machado Last Filed: 09/25/20 12:03> Neck Neck: Yes normal visual inspection and Yes no JVD <EDELMIRA Machado Last Filed: 09/25/20 12:03> Resp Effort & Inspection: normal respiratory effort, able to speak in complete sentences and not labored <EDELMIRA Machado - Last Filed: 09/25/20 12:03> Auscultation: clear to auscultation bilaterally, no crackles, no rales, no rhonchi and no wheezes <Lianet TabaresLALITAC - Last Filed: 09/25/20 12:03> Cardio Other: PPM site intact with dry gauze dressing and <Lianet TabaresMÓNICAC - Last Filed: 09/25/20 12:03> Palpation: normal PMI <Lianet TabaresMÓNICAC - Last Filed: 09/25/20 12:03> Rate: regular rate <Lianet TabaresMÓNICAC - Last Filed: 09/25/20 12:03> Rhythm: regular rhythm <Lianet TabaresMÓNICA - Last Filed: 09/25/20 12:03> Heart sounds: S1 normal heart sound present and S2 normal heart sound present <Lianet TabaresMÓNICAC - Last Filed: 09/25/20 12:03> Peripheral pulses: Peripheral pulses 2+ throughout <Lianet TabaresMÓNICAC - Last Filed: 09/25/20 12:03> GI Inspection: Yes normal to inspection <Lianet TabaresMÓNICA-C - Last Filed: 09/25/20 12:03> Neuro General: patient oriented x3 <Lianet TabaresMÓNICA - Last Filed: 09/25/20 12:03> Extrem General: Yes normal to inspection and No edema <Lianet TabaresMÓNICAC - Last Filed: 09/25/20 12:03> Results Labs and Meds Result diagrams: : 09/25/20 05:22 09/25/20 05:22 <Lianet TabaresMÓNICAC - Last Filed: 09/25/20 12:03> Lab results: Laboratory Results - last 24 hr 09/23/20 09/25/20 09/25/20 16:29 05:22 05:22 WBC 8.4 RBC 4.20 Hgb 12.1 Hct 36.4 L MCV 86.7 MCH 28.8 MCHC 33.2 RDW 13.5 Plt Count 192 MPV 11.0 Absolute Nucleated RBC 0.000 Nucleated RBC % (auto) 0.0 Sodium 142 Potassium 5.0 Chloride 107 Carbon Dioxide 28 Anion Gap 12 BUN 11 Creatinine 0.75 Estim Creat Clear Calc 68.9 Estimated GFR > 60 Random Glucose 110 Calcium 8.7 Lyme Screen IgG & IgM <0.90 Lyme Progressive Test TNP <EDELMIRA Machado - Last Filed: 09/25/20 12:03> Imaging Radiologist's impression: Impressions Guidance Fluoroscopy 09/24/20 13:40 IMPRESSION: Dual-lead pacemaker in heart. Chest X-Ray 09/24/20 17:32 IMPRESSION: 1. No pneumothorax. 2. Low inspiratory effort causing prominence of the bronchovascular markings. 3. Cardiac pacemaker. Chest X-Ray 09/25/20 06:00 IMPRESSION: No pneumothorax. No acute pulmonary findings. <EDELMIRA Machado - Last Filed: 09/25/20 12:03> Progress Note: A&P Assessment and plan (1) Mobitz type 2 second degree heart block: Status: Acute <EDELMIRA Machado - Last Filed: 09/25/20 12:03> Assessment and Plan: Admit with valery little. 2:1 heart block noted in EKG, Tele. hx of bifacicular block. Underwent Medtronic dual chamber PPM placement with Dr Barrera yesterday. CXR post device and this am showing no pneumothorax. Device interrogation this am shows device is functioning normally. Tele shows A/ V pacing, rates 50-60s. Minor soreness at PPM site. Spent time going over site care, mobility restrictions, home monitoring. She will have f/u with Dr Boyer in 2 weeks for wound check. Leave current dressing intact until follow up, keep dry. We will arrange for 6 week f/u with device check in our office. <EDELMIRA Machado - Last Filed: 09/25/20 12:03> (2) Symptomatic bradycardia: Status: Acute <EDELMIRA Machado - Last Filed: 09/25/20 12:03> (3) Status post cardiac pacemaker procedure: Status: Acute <EDELMIRA Machado - Last Filed: 09/25/20 12:03> Assessment and Plan: Medtronic Dual chamber PPM. Interrogation today shows thresholds normal, AAI-DDD mode, base rate turned down to 50, from 60, AP 87.4% of time, CASING IN LINE FEEDER 7.4% of time. battery new. <EDELMIRA Machado - Last Filed: 09/25/20 12:03> Fall Risk Details Current Medications: Current Medications Generic Name Dose Route Start Last Admin Trade Name Freq PRN Reason Stop Dose Admin Acetaminophen 650 mg 09/23/20 17:39 09/25/20 11:31 Acetaminophen 325 Mg Tablet PO 650 mg Q6H PRN Administration Pain, Mild (Pain Scale 1-3) Acetaminophen 650 mg 09/24/20 14:14 Acetaminophen 325 Mg Tablet PO ONCE PRN Pain, Mild (Pain Scale 1-3) Ascorbic Acid 500 mg 09/24/20 09:00 09/25/20 09:29 Ascorbic Acid 500 Mg Tablet PO 500 mg DAILY TOMMIE Administration Atorvastatin Calcium 40 mg 09/24/20 09:00 09/25/20 09:28 Atorvastatin Calcium 40 Mg Tablet PO 40 mg DAILY TOMMIE Administration Atropine Sulfate 0.5 mg 09/23/20 17:43 Atropine Sulfate 1 Mg/10 Ml Syringe IVPUSH Q5M PRN BRADYCARDIA Fentanyl 25 mcg 09/24/20 14:14 Fentanyl Citrate/Pf 100 Mcg/2 Ml Vial IVPUSH Q5M PRN Pain, Moderate (Pain Scale 4-6 Lactated Ringer's 1,000 mls @ 50 mls/hr 09/24/20 14:15 09/25/20 09:36 Lr IVCONT Infused .Q20H TOMMIE Infusion Levothyroxine Sodium 100 mcg 09/24/20 06:00 09/25/20 05:22 Levothyroxine Sodium 100 Mcg Tablet PO 100 mcg DAILY@0600 TOMMIE Administration Ondansetron HCl 4 mg 09/24/20 14:14 Ondansetron Hcl 4 Mg/2 Ml Vial IVPUSH ONCE PRN Nausea and Vomiting Oxycodone HCl 5 mg 09/24/20 14:14 Oxycodone Hcl Immed Release 5 Mg Tablet PO ONCE PRN Pain, Severe (Pain Scale 7-10) Pharmacy Consult 1 each 09/23/20 16:10 Consult Rx Perform Med Rec MISCELLANE ONCE PRN Consult order Sodium Chloride 3 ml 09/24/20 00:00 09/25/20 09:28 0.9 % Sodium Chloride Flush 3 Ml Syringe IVFLUSH 3 ml QSHIFT TOMMIE Administration Venlafaxine HCl 37.5 mg 09/24/20 09:00 09/25/20 09:29 Venlafaxine Hcl Er 37.5 Mg Cap.Er.24h PO 37.5 mg DAILY TOMMIE Administration <EDELMIRA Machado - Last Filed: 09/25/20 12:03> Time Spent With Patient Time: Total time spent is greater than 50% in coordination of care (as documented) at patient's floor/unit and/or counseling patient: 24 <EDELMIRA Machado - Last Filed: 09/25/20 12:03> Time with patient: 15 - 24 minutes <EDELMIRA Machado - Last Filed: 09/25/20 12:03> Progress Note: Quality Stroke Does the patient have a stroke diagnosis?: No <EDELMIRA Machado - Last Filed: 09/25/20 12:03> Procedures Date of Service Date of Service: 09/25/20 <EDELMIRA Machado - Last Filed: 09/25/20 12:03>
--- NOTE | 2020-09-25 12:29 | P.DS_ITS ---
DS: Providers Provider Date of Service: 09/25/20 <DANN Jeter - Last Filed: 09/25/20 12:36> Date of admission: 09/23/20 17:39 <DANN Jeter - Last Filed: 09/25/20 12:36> Primary care physician: Iris Ragland MD <DANN Jeter - Last Filed: 09/25/20 12:36> Consults: 09/23/20 17:39 Consult to Cardiology Routine Consulting Provider: Loi Dorsey Reason for consultation: bradycardia Has provider been notified: No Consult to Thoracic Surgery Routine Consulting Provider: Kike Fischer Reason for consultation: symptomatic bradycardia Has provider been notified: No 09/23/20 22:19 Consult Respiratory Therapy Routine Reason for consultation: cpap <DANN Jeter - Last Filed: 09/25/20 12:36> DS: Diagnosis Discharge Diagnosis (1) Mobitz type 2 second degree heart block: Status: Acute <DANN Jeter - Last Filed: 09/25/20 12:36> (2) Symptomatic bradycardia: Status: Acute <DANN Jeter - Last Filed: 09/25/20 12:36> Problem details: Dizziness. HR down to 30s at home. Mobitz Type II block in ER. Repea t EKG with bifascicular block <DANN Jeter - Last Filed: 09/25/20 12:36> (3) Status post cardiac pacemaker procedure: Status: Acute <DANN Jeter - Last Filed: 09/25/20 12:36> DS: Medications Discharge Medications Home Medications: Home Medications Medication Instructions Recorded Confirmed PreserVision AREDS-2 1 tab PO DAILY 09/23/20 09/23/20 ascorbic acid (vitamin C) [Vitamin 500 mg PO DAILY 09/23/20 09/23/20 C] atorvastatin 1 tab PO DAILY 09/23/20 09/23/20 hydrochlorothiazide 1 cap PO DAILY 09/23/20 09/23/20 levothyroxine 1 tab PO DAILY 09/23/20 09/23/20 losartan 1 tab PO DAILY 09/23/20 09/23/20 venlafaxine 1 cap PO DAILY 09/23/20 09/23/20 <DANN Jeter - Last Filed: 09/25/20 12:36> DS: Summary Hospital Course Hospital Course: From H&P on day of admission 70-year-old woman presenting to the ER with complaints of dizziness and lightheadedness for at least a week that worsened with position all changes. She had some shortness of breath with walking today, she became diaphoretic and had chest pain. Her blood pressure had been running low for several months since she had started hydrochlorothiazide and had been on losartan. Her heart rate at rest was in the 30s and she does not report that she is on any beta-blockers. TSH 0.93, QTC 476 with sinus bradycardia and mobitz type II noted on EKG. She will likely need pacemaker placement. Symptomatic bradycardia. Noted to have 2:1 heart block. Patient was seen and evaluated by Cardiology recommended pacemaker placement. She underwent Medtronic dual chamber pacemaker placed with Dr. Fischer 09/24. (Medtronic Dual chamber PPM. Interrogation today shows thresholds normal, AAI- DDD mode, base rate turned down to 50, from 60, AP 87.4% of time, NURSE UNIT MANAGER 7.4% of time. battery new.) Chest x-ray this morning shows no evidence of pneumothorax. Device interrogated this morning and is functioning normally. She should follow up with Dr. Boyer in 2 weeks for wound check and cardiology in 6 weeks. See wound care instructions included. Attending Attestation: Patient seen and examined independently and I was present during du portion of E/M service. Agree with DANN Garcia's history, physical, assessment, and plan. <DANN Jeter - Last Filed: 09/25/20 12:36> Time Spent with Patient Time attestation: Total time spent providing and/or coordinating discharge services: <DANN Jeter - Last Filed: 09/25/20 12:36> Discharge coordination time: Greater than 30 minutes <DANN Jeter - Last Filed: 09/25/20 12:36> Quality: Stroke Does the patient have a stroke diagnosis?: No <DANN Jeter - Last Filed: 09/25/20 12:36> Physical Exam Vital Signs: Vital Signs: Last Vital Signs Temp 98.2 F 09/25/20 11:00 Pulse 51 09/25/20 11:00 Resp 16 09/25/20 11:00 BP 130/61 09/25/20 11:00 Pulse Ox 98 09/25/20 11:00 Body Mass Index 29.5 <DANN Jeter - Last Filed: 09/25/20 12:36> Const: Nutritional Appearance: well nourished <DANN Jeter - Last Filed: 09/25/20 12:36> Orientation/consciousness: patient oriented x3 <DANN Jeter - Last Filed: 09/25/20 12:36> HENMT: Head: Yes normocephalic and Yes atraumatic <DANN Jeter - Last Filed: 09/25/20 12:36> Eyes: Sclerae: sclerae normal <DANN Jeter - Last Filed: 09/25/20 12:36> Chest: Other: PM site intact <DANN Jeter - Last Filed: 09/25/20 12:36> Resp: Effort & Inspection: normal respiratory effort and no respiratory distress <DANN Jeter - Last Filed: 09/25/20 12:36> Cardio: Rate: regular rate <DANN Jeter - Last Filed: 09/25/20 12:36> Rhythm: regular rhythm <DANN Jeter - Last Filed: 09/25/20 12:36> GI: Palpation (GI): Soft to palpation and nontender <DANN Jeter - Last Filed: 09/25/20 12:36> Neuro: General: patient oriented x3 <DANN Jeter - Last Filed: 09/25/20 12:36> Cranial nerves: Yes CN's II-XII intact bilaterally and Yes Bilaterally intact EOM present <DANN Jeter - Last Filed: 09/25/20 12:36> DS: Data Data Completed and Pending Labs on day of discharge: Laboratory Results - last 24 hr 09/23/20 09/25/20 09/25/20 16:29 05:22 05:22 WBC 8.4 RBC 4.20 Hgb 12.1 Hct 36.4 L MCV 86.7 MCH 28.8 MCHC 33.2 RDW 13.5 Plt Count 192 MPV 11.0 Absolute Nucleated RBC 0.000 Nucleated RBC % (auto) 0.0 Sodium 142 Potassium 5.0 Chloride 107 Carbon Dioxide 28 Anion Gap 12 BUN 11 Creatinine 0.75 Estim Creat Clear Calc 68.9 Estimated GFR > 60 Random Glucose 110 Calcium 8.7 Lyme Screen IgG & IgM <0.90 Lyme Progressive Test TNP <DANN Jeter - Last Filed: 09/25/20 12:36> Discharge Plan Discharge Patient Disposition: Home, Self-Care <DANN Jeter - Last Filed: 09/25/20 12:36> Discharge Diagnosis: symptomatic bradycardia s/p PM placement <DANN Jeter - Last Filed: 09/25/20 12:36> symptomatic bradycardia s/p PM placement <Francis Armando MD - Last Filed: 09/25/20 13:38> Referrals: Kike Fischer MD [Physician] - 2 Weeks Loi Dorsey MD [Physician] - 6 Weeks Iris Ragland MD [Primary Care Provider] - 1 Week <DANN Jeter - Last Filed: 09/25/20 12:36> Discharge Medications: Continued atorvastatin 40 mg tablet 1 tab PO DAILY RF: 0 venlafaxine 37.5 mg capsule,extended release 24hr 1 cap PO DAILY RF: 0 levothyroxine 100 mcg tablet 1 tab PO DAILY RF: 0 ascorbic acid (vitamin C) [Vitamin C] 500 mg Tablet 500 mg PO DAILY RF: 0 hydrochlorothiazide 12.5 mg capsule 1 cap PO DAILY RF: 0 losartan 100 mg tablet 1 tab PO DAILY RF: 0 PreserVision AREDS-2 250-90-40-1 mg Capsule 1 tab PO DAILY RF: 0 <DANN Jeter - Last Filed: 09/25/20 12:36> Discharge Orders: Discharge Order (Routine); Ordered 09/25/20 Ordered By: Iris Manuel <DANN Jeter Last Filed: 09/25/20 12:36> Activity on Discharge: see below <DANN Jeter - Last Filed: 09/25/20 12:36> see below <Francis Armando MD - Last Filed: 09/25/20 13:38> Stand Alone Forms: Patient Portal Discharge page <DANN Jeter - Last Filed: 09/25/20 12:36> Activity Restrictions/Additional Instructions: [place] [facility] Dr. Kike Fischer Pacemaker/ICD Instructions Site Care: Leave dressing on for 5 days. Do not shower or get the area wet for 5 days. Once you remove the dressing, there will be steri-strips in place. Do not peel off, they will fall off. Hand washing is a must when caring for your incision to prevent infections. Avoid touching your incision or using lotions, creams, or ointments until it is healed (2-4 weeks). Activity: Limit the movement of your arm on the same side as the pacemaker but do not stop moving it. Avoid stretching that arm over your head or shoulder-level or lift or carry anything heavier than 5 pounds with the left arm for 6 weeks Avoid golfing, swimming, tennis, bowling, shoveling snow or mowing the lawn for 6 weeks Follow-up instructions: You will receive a phone call for wound check in [address] [place] [address]. Please call [phone] for the [place] office if any questions or if you have any fevers, discharge, bleeding, chills Please keep the identification card for the device with you, it will be useful when you go through security during flights. Please plug in your home monitor and leave it at your bedside. Call device company if you need assistance plugging in the monitor. Please tell all your healthcare providers you have a pacemaker, especially before procedures or before a MRI. Call your doctor if you have any redness, swelling, pus from incision site, fever of 101 degrees. If you have any bleeding from the incision site, lie down and put pressure on the incision site for 30 minutes. If this does not resolve, please get transportation to the closest hospital but do not drive yourself. <DANN Jeter - Last Filed: 09/25/20 12:36> Care Plan Goals: see below <DANN Jeter - Last Filed: 09/25/20 12:36> Health Concerns: heart block <DANN Jeter - Last Filed: 09/25/20 12:36> Plan of Treatment: heart block, status post pacemaker placement. please see instructions from surgery/pacemaker site care He should follow-up with Dr. Fischer in 2 weeks and cardiology in 6 weeks. <DANN Jeter - Last Filed: 09/25/20 12:36> Assessment: see discharge summary <DANN Jeter - Last Filed: 09/25/20 12:36>
[2020-09-25 14:02] VITALS: O2SAT 97
== END 2020-09-25 14:24 | disposition home or self-care (01) | DRG 244 ==
LOC: HO.ED 17:05 → HO.EDOVER 17:59 → HO.IMC 19:12
PROVIDERS: Internal Medicine Cardiovascular Disease; Nurse Practitioner Family; Admitting Provider Nurse Practitioner Acute Care; Emergency Provider Emergency Medicine Emergency Medical Services; PCP Family Medicine; Visit Provider Family Medicine
PROC: 0JH606Z Insertion of Pacemaker, Dual Chamber into Chest Subcutaneous Tissue and Fascia, Open Approach (ICD-10-PCS; principal; 2020-09-24 14:00)
DX: I45.2 Bifascicular block (principal); E78.5 Hyperlipidemia, unspecified; I10 Essential (primary) hypertension; E03.9 Hypothyroidism, unspecified; R00.1 Bradycardia, unspecified; G47.33 Obstructive sleep apnea (adult) (pediatric); Z90.13 Acquired absence of bilateral breasts and nipples; Z85.3 Personal history of malignant neoplasm of breast; Z20.822 Contact with and (suspected) exposure to COVID-19; Z99.89 Dependence on other enabling machines and devices; Z87.891 Personal history of nicotine dependence; Z88.0 Allergy status to penicillin; Z79.890 Hormone replacement therapy; Z79.899 Other long term (current) drug therapy
CPT/HCPCS: 36415; 71045; 71046; 80048; 80076; 83735; 84443; 84484; 85025; 85027; 85379; 86617; 86618; 87635; 93005; 93306; 99223; 99285; C1785; C1892; C1898; J1100; J2250; J2405; J3010; J3370

== ENCOUNTER 2020-09-26 13:14 | Observation (INO) | payer MEDICARE, SELFPAY ==
--- NOTE | ~2020-09-26 | CT_ITS ---
EXAMINATION: CT ANGIOGRAM OF THE CHEST WITH AND WITHOUT CONTRAST (CT PULMONARY ANGIOGRAM FOR PE) CLINICAL INFORMATION: Reason for Exam fevers, cough, pain with inspiration COMPARISON: Chest x-ray 09/26/2020 TECHNIQUE: Prior to contrast administration, noncontrast localization images were obtained. Subsequently, multidetector volumetric imaging was performed from the thoracic inlet to below the diaphragms following the administration of 63 mL Omnipaque 350 intravenous contrast. No contrast reaction reported Sagittal, coronal, and MIP oblique sagittal reformatted images were obtained on the CT workstation, uploaded to PACS, and reviewed. This CT examination was performed using dose optimization techniques as appropriate, variously including the following: *Automated exposure control *Adjustment of mA and/or kV according to patient size (this includes techniques or standardized protocols for targeted exams where dose is matched to indication/reason for exam; i.e. extremities or head) *Use of iterative reconstruction technique Total exam dose-length product 362 mGy-cm FINDINGS: QUALITY OF STUDY/CONTRAST BOLUS: Satisfactory. PULMONARY ARTERIES: No central or segmental pulmonary emboli. THORACIC AORTA: There is no aneurysm of aorta. No aortic dissection. Wall the ascending aorta is slightly thickened with subtle edematous stranding in the surrounding mediastinal fat. Image series 6. LUNG: Linear atelectasis at both lung bases. No acute airways disease. Central bronchial airways are open. PLEURA: Trace dependent right pleural effusion. MEDIASTINUM: Heart size mildly enlarged. Pacemaker leads in the right atrium and right ventricle. No evidence of septal bowing or right heart strain. Trace pericardial effusion. The mediastinal mass or significant lymphadenopathy. Right lobe of thyroid is slightly prominent compared to left without distinct nodule. CHEST WALL/AXILLA: Bilateral breast implants. No chest wall mass or significant lymphadenopathy. OSSEOUS STRUCTURES: Degenerative spondylosis of the spine. UPPER ABDOMEN: Unremarkable. No reflux of contrast into the hepatic veins to suggest elevated right heart pressures. CT/CT angio chest PE protocol IMPRESSION: 1. No evidence of pulmonary embolism. 2. No acute airways disease. 3. Cardiomegaly with pacemaker leads in heart. 4. Trace pericardial effusion 5. Trace dependent right pleural effusion. 6. Slight thickening of the wall of the ascending aorta with subtle stranding in the adjacent mediastinal fat. This is nonspecific.. An aortitis could give this appearance. Clinically correlate. VTE: negative This critical result was discussed with Dr. Rdz on 09/26/2020, 5:20 PM and it was ascertained that the content and urgency of the report was understood at the time of direct communication.
--- NOTE | ~2020-09-26 | XR_ITS ---
EXAMINATION: XR CHEST CLINICAL INFORMATION: Dyspnea. New pacemaker. COMPARISON: Chest 09/25/2020 TECHNIQUE: Frontal view of the chest was obtained. FINDINGS: The lungs are well-expanded and clear. The heart size and pulmonary vascularity is normal. There are pacer electrodes in right atrium and right ventricle. No gross bony abnormality seen. There is no pneumothorax. XR/XR chest 1V IMPRESSION: Unremarkable chest exam. No change from 09/25/2020
[2020-09-26 13:18] VITALS: BP 141/65; PULSE 72; RESP 18; TEMP 36.6; O2SAT 98; BMI 29.2
--- NOTE | 2020-09-26 13:25 | ECG_ITS ---
Test Reason : CHEST PAIN Blood Pressure : / mmHG Vent. Rate : 073 BPM Atrial Rate : 073 BPM P-R Int : 196 ms QRS Dur : 168 ms QT Int : 502 ms P-R-T Axes : 061 218 -19 degrees QTc Int : 553 ms Atrial-sensed ventricular-paced rhythm Abnormal ECG When compared with ECG of 24-SEP-2020 08:30, Electronic ventricular pacemaker has replaced Sinus rhythm Vent. rate has increased BY 24 BPM Referred By: Generic ED Physician Electronically Signed By:Loi Dorsey
--- NOTE | 2020-09-26 14:18 | ED.SOB ---
HPI - SOB/Dyspnea General Chief Complaint: Dyspnea Stated Complaint: pain with breathing, pacemaker was just put in Time Seen by Provider: 09/26/20 14:12 Source: patient and old records reviewed Mode of arrival: ambulatory Limitations: no limitations History of Present Illness MD elicited complaint: shortness of breath, pain with inspiration and chest pain Pertinent past history: other (admission to hospital with PPM on Tuesday) Onset (ago): day(s) (today) Context: recent illness Timing: intermittent Severity: moderate Exacerbating factors: coughing and inspiration Relieving factors: nothing Associated symptoms: chest pain, pain with inspiration, fever, cough and sputum production Treatment prior to arrival: none Related Data Home Medications Medication Instructions Recorded Confirmed PreserVision AREDS-2 1 tab PO DAILY 09/23/20 09/23/20 ascorbic acid (vitamin C) [Vitamin 500 mg PO DAILY 09/23/20 09/23/20 C] atorvastatin 1 tab PO DAILY 09/23/20 09/23/20 hydrochlorothiazide 1 cap PO DAILY 09/23/20 09/23/20 levothyroxine 1 tab PO DAILY 09/23/20 09/23/20 losartan 1 tab PO DAILY 09/23/20 09/23/20 venlafaxine 1 cap PO DAILY 09/23/20 09/23/20 Allergies Allergy/AdvReac Type Severity Reaction Status Date / Time amoxicillin [Amoxicillin] Allergy Intermediate HIVES/RASH/LIP Verified 09/26/20 13:17 SWELLING lisinopril AdvReac Intermediate Cough Verified 09/26/20 13:17 Review of Systems Review of Systems: Constitutional : No Weight loss, pos Fever, pos Chills ENT/Mouth : No sore throat, No Rhinorrhea Eyes: No Eye Pain, No Swelling Cardiovascular : pos Chest Pain, pos SOB, no Dyspnea on Exertion, No Orthopnea, No Edema, No Palpitations Respiratory : No Cough, No Sputum Gastrointestinal : pos Nausea, No Vomiting, No Diarrhea, No abdominal Pain, No Hematochezia, No Melena Genitourinary : No Dysuria, No Urinary Frequency Musculoskeletal : No joint pain, No Myalgias, No Joint Swelling Skin : No Skin Lesions, No rash Neuro : No Weakness, No Numbness, No Dizziness, No Headache Psych : No Anxiety/Panic, No Depression Heme/Lymph: No Bruising, No Lymphadenopathy Endocrine : No Polyuria, No Polydipsia All other systems reviewed and are negative [facility] Past Medical History Attestation statement: The following information was validated with the patient. Medical History Bradycardia Breast CA Depression Dyspnea on exertion HLD (hyperlipidemia) HTN (hypertension) Hypothyroidism Lymphedema Melanoma CASSIE (obstructive sleep apnea) Pacemaker Surgical History History of bilateral mastectomy Hx of colonoscopy Status post bilateral breast reconstruction Social History Social History Household Members: Spouse Housing: House Do you presently have visiting nurse or other home services: No Alcohol intake: never Patient Tobacco Use Status: Former Tobacco user Quit Date: 30 yrs ago Tobacco use type: Cigarette Advance Directives: Yes Advance Directives on File: Yes Advance Directives Date on File: 09/23/20 service: No Physical Exam Vital Signs: Vital Signs: Last Vital Signs Temp 99.1 F 09/26/20 15:12 Pulse 65 09/26/20 15:12 Resp 20 09/26/20 15:12 BP 136/63 09/26/20 15:12 Pulse Ox 96 09/26/20 15:12 Body Mass Index 29.2 Appearance: Alert. Oriented X3. No acute distress. Eyes: Pupils equal, round and reactive to light. ENT: Pharynx normal. Neck: Normal inspection. Neck supple. CVS: Normal heart rate and rhythm. Pulses normal. Chest: incision c/d/i minimal bruising, no erythema, no fluctuance Respiratory: No respiratory distress. Breath sounds normal. Abdomen: Soft and non-tender. Skin: Skin warm and dry. Normal skin color. Normal skin turgor. Extremities: No lower extremity edema. No calf ttp Neuro: Oriented X 3. No motor deficit. No sensory deficit. Course Course Course Narrative: signed out to Dr. Rdz pending CTA results MDM - SOB/Dyspnea MDM Narrative Medical decision making narrative: 70 yo female with DC yesterday following pacer for 2nd type II HB - comes in today c/o pleuritic chest pain, fevers, shortness of breath, she is not on blood thinners will need labs, EKG, CTA for PE, dispo per results and findings, could be pericarditis/PE/pneumonia Lab Data Result diagrams: 09/26/20 14:35 09/26/20 14:36 Labs: Lab Results 09/26/20 09/26/20 09/26/20 Range/Units 14:35 14:35 14:36 WBC 9.6 (4.8-10.8) X10*3/uL RBC 4.08 L (4.20-5.50) X10*6/uL Hgb 11.8 L (12.0-16.0) g/dl Hct 35.2 L (37-47) % MCV 86.3 (80-98) fL MCH 28.9 (27.0-33.0) pg MCHC 33.5 (31.0-35.0) g/dl RDW 13.4 (11.0-16.0) % Plt Count 167 (160-400) X10*3/uL MPV 10.7 (9.4-12.3) fL Immature Gran % (Auto) 0.4 (0.0-0.4) % Neut % (Auto) 72.0 (45-73) % Lymph % (Auto) 20.5 (20-40) % [place] % (Auto) 6.6 (2-11) % Eos % (Auto) 0.2 (0-4) % Baso % (Auto) 0.3 (0-2) % Lymph # (Auto) 2.0 (1.2-4.9) X10*3/uL [place] # (Auto) 0.6 (0.1-1.2) X10*3/uL Eos # (Auto) 0.0 (0.0-0.4) X10*3/uL Baso # (Auto) 0.0 (0.0-0.2) X10*3/uL Abs Immat Gran (auto) 0.04 H (0.00-0.03) X10*3/uL Absolute Neuts (auto) 6.9 (2.0-8.3) X10*3/uL Absolute Nucleated RBC 0.000 (0.0-0.012) X10*3/uL Nucleated RBC % (auto) 0.0 (0.0-0.2) /100WBC Hold Blue Top SEE NOTE Sodium 142 (135-145) mmol/L Potassium 3.8 D (3.3-5.1) mmol/L Chloride 103 (96-108) mmol/L Carbon Dioxide 30 H (22-29) mmol/L Anion Gap 13 (12-20) BUN 9 (9-16) mg/dL Creatinine 0.74 (0.5-1.4) mg/dL Estim Creat Clear Calc 69.4 Estimated GFR > 60 Random Glucose 118 H (60-115) mg/dL Calcium 9.3 D (8.4-10.2) mg/dL Magnesium (1.6-2.6) mg/dL Total Bilirubin (0.0-1.0) mg/dL Direct Bilirubin (0.0-0.5) mg/dL AST (5-31) U/L ALT (0-31) U/L Alkaline Phosphatase (39-117) U/L Troponin I High Sens (<3.5-17.0) ng/L Total Protein (6.5-8.0) g/dL Albumin (3.5-5.0) g/dL Urine Color Urine Appearance Urine pH (5.0-8.0) Ur Specific [place] (1.005-1.025) Urine Protein (NEG-TRACE) MG/DL Urine Glucose (UA) (NEG) MG/DL Urine Ketones (NEG) MG/DL Urine Blood (NEG) Urine Nitrite (NEG) Ur Leukocyte Esterase (NEG) Urine RBC (0) /HPF Urine WBC (0-4) /HPF Ur Squamous Epith Cells /LPF Urine Bacteria /LPF 09/26/20 09/26/20 09/26/20 Range/Units 14:36 14:36 14:36 WBC (4.8-10.8) X10*3/uL RBC (4.20-5.50) X10*6/uL Hgb (12.0-16.0) g/dl Hct (37-47) % MCV (80-98) fL MCH (27.0-33.0) pg MCHC (31.0-35.0) g/dl RDW (11.0-16.0) % Plt Count (160-400) X10*3/uL MPV (9.4-12.3) fL Immature Gran % (Auto) (0.0-0.4) % Neut % (Auto) (45-73) % Lymph % (Auto) (20-40) % Sutton % (Auto) (2-11) % Eos % (Auto) (0-4) % Baso % (Auto) (0-2) % Lymph # (Auto) (1.2-4.9) X10*3/uL [place] # (Auto) (0.1-1.2) X10*3/uL Eos # (Auto) (0.0-0.4) X10*3/uL Baso # (Auto) (0.0-0.2) X10*3/uL Abs Immat Gran (auto) (0.00-0.03) X10*3/uL Absolute Neuts (auto) (2.0-8.3) X10*3/uL Absolute Nucleated RBC (0.0-0.012) X10*3/uL Nucleated RBC % (auto) (0.0-0.2) /100WBC Hold Blue Top Sodium (135-145) mmol/L Potassium (3.3-5.1) mmol/L Chloride (96-108) mmol/L Carbon Dioxide (22-29) mmol/L Anion Gap (12-20) BUN (9-16) mg/dL Creatinine (0.5-1.4) mg/dL Estim Creat Clear Calc Estimated GFR Random Glucose (60-115) mg/dL Calcium (8.4-10.2) mg/dL Magnesium 2.0 (1.6-2.6) mg/dL Total Bilirubin 0.8 (0.0-1.0) mg/dL Direct Bilirubin 0.4 (0.0-0.5) mg/dL AST 26 (5-31) U/L ALT 29 (0-31) U/L Alkaline Phosphatase 77 (39-117) U/L Troponin I High Sens 94.1 H* D (<3.5-17.0) ng/L Total Protein 7.1 (6.5-8.0) g/dL Albumin 4.3 (3.5-5.0) g/dL Urine Color STRAW Urine Appearance CLEAR Urine pH 6.0 (5.0-8.0) Ur Specific [place] <= 1.005 (1.005-1.025) Urine Protein NEG (NEG-TRACE) MG/DL Urine Glucose (UA) NEG (NEG) MG/DL Urine Ketones NEG (NEG) MG/DL Urine Blood TRACE (NEG) Urine Nitrite NEG (NEG) Ur Leukocyte Esterase NEG (NEG) Urine RBC 0-2 (0) /HPF Urine WBC 0 (0-4) /HPF Ur Squamous Epith Cells TRACE /LPF Urine Bacteria NONE /LPF ECG Data Attestation: I personally reviewed and interpreted this ECG as follows: ECG interpretation date: 09/26/20 ECG interpretation time: 14:34 Interpretation: Rate: 73 Rhythm: paced rhythm [place]: abnormal Normal P waves. Normal SIVA. wide QRS complex, poor R wave progression ST T wave : no KING inverted t waves III and aVF (old) qTC: normal prior studies: changed from prior The study has been interpreted contemporaneously by me. . Discharge Plan Discharge Clinical Impression: Chest pain, pleuritic, Elevated troponin Prescriptions: No Action atorvastatin 40 mg tablet 1 tab PO DAILY RF: 0 venlafaxine 37.5 mg capsule,extended release 24hr 1 cap PO DAILY RF: 0 levothyroxine 100 mcg tablet 1 tab PO DAILY RF: 0 ascorbic acid (vitamin C) [Vitamin C] 500 mg Tablet 500 mg PO DAILY RF: 0 hydrochlorothiazide 12.5 mg capsule 1 cap PO DAILY RF: 0 losartan 100 mg tablet 1 tab PO DAILY RF: 0 PreserVision AREDS-2 250-90-40-1 mg Capsule 1 tab PO DAILY RF: 0
[2020-09-26 14:43] LABS: MANUAL DIFF FLAG NO
[2020-09-26 14:45] LABS: Basophils Percent Auto 0.3 % (0-2); Eosinophils Percent Auto 0.2 % (0-4); Hematocrit 35.2 % (37-47); Hemoglobin 11.8 g/dl (12.0-16.0); Imm Gran Abs Auto 0.04 X10*3/uL (0.00-0.03); Imm Gran Pct Auto 0.4 % (0.0-0.4); Lymphocytes Percent Auto 20.5 % (20-40); Mean Corpuscular HGB Conc 33.5 g/dl (31.0-35.0); Mean Corpuscular Hemoglobin 28.9 pg (27.0-33.0); Mean Corpuscular Volume 86.3 fL (80-98); Mean Platelet Volume 10.7 fL (9.4-12.3); Monocytes Absolute Auto 0.6 X10*3/uL (0.1-1.2); Monocytes Percent Auto 6.6 % (2-11); Neutrophils Absolute Auto 6.9 X10*3/uL (2.0-8.3); Platelet Count 167 X10*3/uL (160-400); Red Blood Count 4.08 X10*6/uL (4.20-5.50); Red Cell Distribution Width 13.4 % (11.0-16.0); White Blood Count 9.6 X10*3/uL (4.8-10.8)
[2020-09-26 14:57] LABS: Glucose Urine UA NEG (NEG); Leukocyte Esterase Urine NEG (NEG); Nitrite Urine NEG (NEG); Specific Gravity - Urine <= 1.005 (1.005-1.025); Urine Blood TRACE (NEG); Urine Ketones NEG (NEG); Urine Protein NEG (NEG-TRACE)
[2020-09-26 15:01] LABS: Appearance Urine CLEAR; Color Urine STRAW
[2020-09-26 15:08] LABS: Anion Gap 13 (12-20); Blood Urea Nitrogen 9 mg/dL (9-16); Calcium 9.3 mg/dL (8.4-10.2); Carbon Dioxide 30 mmol/L (22-29); Chloride 103 mmol/L (96-108); Creatinine Clr Calc Pharmacy 69.4; Estimated Glomerular Filt Rate > 60; Glucose Random 118 mg/dL (60-115); Potassium 3.8 mmol/L (3.3-5.1); Sodium 142 mmol/L (135-145)
[2020-09-26 15:10] LABS: Alanine Aminotransferase 29 U/L (0-31); Albumin Level 4.3 g/dL (3.5-5.0); Alkaline Phosphatase 77 U/L (39-117); Aspartate Amino Transferase 26 U/L (5-31); Bilirubin Direct 0.4 mg/dL (0.0-0.5); Bilirubin Total 0.8 mg/dL (0.0-1.0); Total Protein 7.1 g/dL (6.5-8.0)
[2020-09-26 15:12] VITALS: BP 136/63; PULSE 65; RESP 20; TEMP 37.3; O2SAT 96
[2020-09-26 15:13] LABS: RBC Urine 0-2 /HPF (0); Squamous Epithelial Cell Urine TRACE /LPF; WBC Urine 0 /HPF (0-4)
[2020-09-26 15:16] LABS: Troponin-I High Sensitivity 94.1 ng/L (<3.5-17.0)
[2020-09-26] MEDS: iohexoL 350 MG/ML 100 ML INFUS..BTL IV (16:47)
[2020-09-26 17:41] LABS: Troponin-I High Sensitivity 86.5 ng/L (<3.5-17.0)
[2020-09-26 17:44] LABS: C Reactive Protein 2.93 mg/dL (< or = 0.50)
[2020-09-26 18:39] LABS: Erythrocyte Sedimentation Rate 31 MM/HR (0-20)
[2020-09-26 18:40] VITALS: BP 148/58; PULSE 62; RESP 20; TEMP 37.3; O2SAT 96
[2020-09-26 20:00] VITALS: PULSE 67; RESP 18; O2SAT 100
[2020-09-26 20:33] LABS: Lactic Acid 0.8 mmol/L (0.5-2.0)
[2020-09-26 21:07] LABS: COVID-19 Test Negative (Negative)
--- NOTE | 2020-09-26 22:22 | PM.IMHP ---
History of Present Illness Date of Service: 09/26/20 Chief Complaint: Chest pain 70-year-old female with a past medical history of hypertension, hyperlipidemia, depression, CASSIE, hypothyroidism, history of breast cancer, recent admission to the hospital for Mobitz type 2 block status post pacemaker discharged yesterday; presented to the hospital today with a chief complaint of chest pain. Patient reports that she had chest pain located in the center of the chest, no associated nausea vomiting lightheadedness dizziness. Reports chest pain worsens with deep inspiration and also lying flat. Also complains of subjective fevers. Denies any cough or sputum production. Denies any GI or symptoms. Review of all other systems is negative except mentioned above That she also notified Dr Lawton who placed the pacemaker. ER course: Per ER team patient pacemaker site looks normal; EKG nonischemic, troponins indeterminate; CT scan showed possible aortitis but patient has been afebrile, no leukocytosis, normal lactate; decided to hold off antibiotics for now; discussed with cardiology Dr. Dorsey who recommended admission and will evaluate the patient in the morning. [facility] Medical History Bradycardia Breast CA Depression Dyspnea on exertion HLD (hyperlipidemia) HTN (hypertension) Hypothyroidism Lymphedema Melanoma CASSIE (obstructive sleep apnea) Pacemaker Surgical History History of bilateral mastectomy Hx of colonoscopy Status post bilateral breast reconstruction Social History Household Members: Spouse Housing: House Do you presently have visiting nurse or other home services: No Alcohol intake: never Patient Tobacco Use Status: Never used Tobacco Tobacco use type: Cigarette Smoked in Last 30 Days: No Use of substances other than those prescribed or required for medical reasons: No Advance Directives: Yes Advance Directives on File: Yes Advance Directives Date on File: 09/23/20 service: No Current occupational status: employed Meds Allergies Allergy/AdvReac Type Severity Reaction Status Date / Time amoxicillin [Amoxicillin] Allergy Intermediate HIVES/RASH/LIP Verified 09/26/20 13:17 SWELLING lisinopril AdvReac Intermediate Cough Verified 09/26/20 13:17 Active Medications: Current Medications Generic Name Dose Route Start Last Admin Trade Name Freq PRN Reason Stop Dose Admin Acetaminophen 650 mg 09/26/20 22:17 Acetaminophen 325 Mg Tablet PO Q6H PRN Pain, Mild (Pain Scale 1-3) Ascorbic Acid 500 mg 09/27/20 09:00 Ascorbic Acid 500 Mg Tablet PO DAILY [facility] Atorvastatin Calcium 40 mg 09/27/20 09:00 Atorvastatin Calcium 40 Mg Tablet PO DAILY [facility] Hydrochlorothiazide 12.5 mg 09/27/20 09:00 Hydrochlorothiazide 12.5 Mg Tablet PO DAILY [facility] Protocol Levothyroxine Sodium 100 mcg 09/27/20 06:30 Levothyroxine Sodium 100 Mcg Tablet PO DAILY@0630 [facility] Losartan Potassium 100 mg 09/27/20 09:00 Losartan Potassium 50 Mg Tablet PO DAILY [facility] Protocol Non-Formulary Medication 1 tab 09/27/20 09:00 Vit C,M-Qa-Lpqff-Lutein-Zeaxan [Preservision Areds-2] PO DAILY [facility] Sodium Chloride 3 ml 09/27/20 00:00 0.9 % Sodium Chloride Flush 3 Ml [facility] Venlafaxine HCl 37.5 mg 09/27/20 09:00 Venlafaxine Hcl Er 37.5 Mg Cap.Er.24h PO DAILY [facility] Home Medications Medication Instructions Recorded Confirmed Last Taken Type PreserVision AREDS-2 1 tab PO DAILY 09/23/20 09/26/20 09/22/20 History ascorbic acid (vitamin C) [Vitamin 500 mg PO DAILY 09/23/20 09/26/20 09/22/20 History C] atorvastatin 1 tab PO DAILY 09/23/20 09/26/20 09/22/20 History hydrochlorothiazide 1 cap PO DAILY 09/23/20 09/26/20 09/22/20 History levothyroxine 1 tab PO DAILY 09/23/20 09/26/20 09/23/20 History losartan 1 tab PO DAILY 09/23/20 09/26/20 09/22/20 History venlafaxine 1 cap PO DAILY 09/23/20 09/26/20 09/22/20 History Physical Exam Vital Signs and Narrative: Vital Signs: Last Vital Signs Temp 99.1 F 09/26/20 18:40 Pulse 67 09/26/20 20:00 Resp 18 09/26/20 20:00 BP 148/58 H 09/26/20 18:40 Pulse Ox 100 09/26/20 20:00 Body Mass Index 29.2 Gen: Appears be in no acute distress HEENT: NCAT, Moist mucosa. Pulmonary: Vesicular breath sounds, fair air entry; pacemaker site looks healing CVS: Normal S1-S2 Abdomen: BS+, Soft, Nontender Extremities: Warm well perfused Neuro: Alert and awake. Results Labs CBC and Chem 7: 09/27/20 06:28 09/27/20 06:28 Labs: Laboratory Results - last 24 hr 09/26/20 09/26/20 09/26/20 14:35 14:35 14:35 MCV 86.3 MCH 28.9 MCHC 33.5 RDW 13.4 Plt Count 167 MPV 10.7 Immature Gran % (Auto) 0.4 Neut % (Auto) 72.0 Lymph % (Auto) 20.5 [place] % (Auto) 6.6 Eos % (Auto) 0.2 Baso % (Auto) 0.3 Lymph # (Auto) 2.0 [place] # (Auto) 0.6 Eos # (Auto) 0.0 Baso # (Auto) 0.0 Abs Immat Gran (auto) 0.04 H Absolute Neuts (auto) 6.9 Absolute Nucleated RBC 0.000 Nucleated RBC % (auto) 0.0 ESR 31 H Hold Blue Top SEE NOTE Anion Gap Estim Creat Clear Calc Estimated GFR Random Glucose Lactic Acid Calcium Magnesium Total Bilirubin Direct Bilirubin AST ALT Alkaline Phosphatase Troponin I High Sens C-Reactive Protein Total Protein Albumin Urine Color Urine Appearance Urine pH Ur Specific [place] Urine Protein Urine Glucose (UA) Urine Ketones Urine Blood Urine Nitrite Ur Leukocyte Esterase Urine RBC Urine WBC Ur Squamous Epith Cells Urine Bacteria COVID-19 (WILL) COVID-19 Clin Com 09/26/20 09/26/20 09/26/20 14:36 14:36 14:36 MCV MCH MCHC RDW Plt Count MPV Immature Gran % (Auto) Neut % (Auto) Lymph % (Auto) [place] % (Auto) Eos % (Auto) Baso % (Auto) Lymph # (Auto) [place] # (Auto) Eos # (Auto) Baso # (Auto) Abs Immat Gran (auto) Absolute Neuts (auto) Absolute Nucleated RBC Nucleated RBC % (auto) ESR Hold Blue Top Anion Gap 13 Estim Creat Clear Calc 69.4 Estimated GFR > 60 Random Glucose 118 H Lactic Acid Calcium 9.3 D Magnesium 2.0 Total Bilirubin 0.8 Direct Bilirubin 0.4 AST 26 ALT 29 Alkaline Phosphatase 77 Troponin I High Sens 94.1 H* D C-Reactive Protein 2.93 H Total Protein 7.1 Albumin 4.3 Urine Color Urine Appearance Urine pH Ur Specific [place] Urine Protein Urine Glucose (UA) Urine Ketones Urine Blood Urine Nitrite Ur Leukocyte Esterase Urine RBC Urine WBC Ur Squamous Epith Cells Urine Bacteria COVID-19 (WILL) COVID-19 Clin Com 09/26/20 09/26/20 09/26/20 14:36 17:06 20:08 MCV MCH MCHC RDW Plt Count MPV Immature Gran % (Auto) Neut % (Auto) Lymph % (Auto) [place] % (Auto) Eos % (Auto) Baso % (Auto) Lymph # (Auto) [place] # (Auto) Eos # (Auto) Baso # (Auto) Abs Immat Gran (auto) Absolute Neuts (auto) Absolute Nucleated RBC Nucleated RBC % (auto) ESR Hold Blue Top Anion Gap Estim Creat Clear Calc Estimated GFR Random Glucose Lactic Acid 0.8 Calcium Magnesium Total Bilirubin Direct Bilirubin AST ALT Alkaline Phosphatase Troponin I High Sens 86.5 H* C-Reactive Protein Total Protein Albumin Urine Color STRAW Urine Appearance CLEAR Urine pH 6.0 Ur Specific [place] <= 1.005 Urine Protein NEG Urine Glucose (UA) NEG Urine Ketones NEG Urine Blood TRACE Urine Nitrite NEG Ur Leukocyte Esterase NEG Urine RBC 0-2 Urine WBC 0 Ur Squamous Epith Cells TRACE Urine Bacteria NONE COVID-19 (WILL) COVID-19 Clin Com 09/26/20 20:44 MCV MCH MCHC RDW Plt Count MPV Immature Gran % (Auto) Neut % (Auto) Lymph % (Auto) [place] % (Auto) Eos % (Auto) Baso % (Auto) Lymph # (Auto) [place] # (Auto) Eos # (Auto) Baso # (Auto) Abs Immat Gran (auto) Absolute Neuts (auto) Absolute Nucleated RBC Nucleated RBC % (auto) ESR Hold Blue Top Anion Gap Estim Creat Clear Calc Estimated GFR Random Glucose Lactic Acid Calcium Magnesium Total Bilirubin Direct Bilirubin AST ALT Alkaline Phosphatase Troponin I High Sens C-Reactive Protein Total Protein Albumin Urine Color Urine Appearance Urine pH Ur Specific [place] Urine Protein Urine Glucose (UA) Urine Ketones Urine Blood Urine Nitrite Ur Leukocyte Esterase Urine RBC Urine WBC Ur Squamous Epith Cells Urine Bacteria COVID-19 (WILL) Negative COVID-19 Clin Com See Note Imaging Radiologist's Impressions: Impressions Chest X-Ray 09/26/20 13:25 IMPRESSION: Unremarkable chest exam. No change from 09/25/2020 Chest CTA 09/26/20 14:15 IMPRESSION: 1. No evidence of pulmonary embolism. 2. No acute airways disease. 3. Cardiomegaly with pacemaker leads in heart. 4. Trace pericardial effusion 5. Trace dependent right pleural effusion. 6. Slight thickening of the wall of the ascending aorta with subtle stranding in the adjacent mediastinal fat. This is nonspecific.. An aortitis could give this appearance. Clinically correlate. VTE: negative This critical result was discussed with Dr. Rdz on 09/26/2020, 5:20 PM and it was ascertained that the content and urgency of the report was understood at the time of direct communication. Assessment and Plan (1) Chest pain: Qualifiers: Chest pain type: chest pain on breathing Qualified Code(s): R07.1 - Chest pain on breathing Status: Acute 70-year-old female with a past medical history of hypertension, hyperlipidemia, depression, CASSIE, hypothyroidism, history of breast cancer, recent admission to the hospital for Mobitz type 2 block status post pacemaker discharged yesterday; presented to the hospital today with a chief complaint of chest pain. CT scan showed possible aortitis. Admitted for further management. Chest pain: Patient currently denies any chest pain at the time of my entry. CT scan concern for possible aortitis. Patient is afebrile, no leukocytosis: Lactate within normal limits. Will hold off antibiotics for now. Troponins are indeterminate; Notified Cardiology Monitor on telemetry Supportive care Hypertension/hyperlipidemia: Continue losartan, statin Hypothyroidism: Continue levothyroxine Depression: Continue venlafaxine DVT prophylaxis: SCD boots Code status: Full code Quality Stroke Does the patient have a stroke diagnosis?: No VTE Prior VTE?: No VTE Risk Level:: Medical - moderate - high VTE Device Contraindication: N/A - Device Ordered VTE Drug Contraindication: Treatment Not Indicated
--- NOTE | 2020-09-26 23:13 | PC.NURSE ---
call placed to give report. rn unavailable.
[2020-09-26] MEDS: 0.9 % Sodium Chloride Flush 3 ML SYRINGE IVFLUSH (23:40)
[2020-09-27] VITALS (8 sets, daily range): BP systolic 123–160; BP diastolic 51–87; PULSE 55–103; RESP 16–20; TEMP 36–36.4; O2SAT 92–100
[2020-09-27] MEDS: Levothyroxine Sodium 100 MCG TABLET PO (06:19)
[2020-09-27 06:53] LABS: MANUAL DIFF FLAG NO
[2020-09-27 07:11] LABS: Basophils Percent Auto 0.6 % (0-2); Eosinophils Absolute Auto 0.1 X10*3/uL (0.0-0.4); Hematocrit 33.9 % (37-47); Hemoglobin 11.3 g/dl (12.0-16.0); Imm Gran Abs Auto 0.03 X10*3/uL (0.00-0.03); Imm Gran Pct Auto 0.4 % (0.0-0.4); Lymphocytes Absolute Auto 2.1 X10*3/uL (1.2-4.9); Lymphocytes Percent Auto 29.5 % (20-40); Mean Corpuscular HGB Conc 33.3 g/dl (31.0-35.0); Mean Corpuscular Hemoglobin 28.4 pg (27.0-33.0); Mean Corpuscular Volume 85.2 fL (80-98); Mean Platelet Volume 11.2 fL (9.4-12.3); Monocytes Absolute Auto 0.5 X10*3/uL (0.1-1.2); Neutrophils Absolute Auto 4.3 X10*3/uL (2.0-8.3); Neutrophils Percent Auto 61.5 % (45-73); Platelet Count 166 X10*3/uL (160-400); Red Blood Count 3.98 X10*6/uL (4.20-5.50); Red Cell Distribution Width 13.2 % (11.0-16.0)
[2020-09-27 07:24] LABS: Anion Gap 14 (12-20); Blood Urea Nitrogen 10 mg/dL (9-16); Calcium 8.9 mg/dL (8.4-10.2); Carbon Dioxide 28 mmol/L (22-29); Chloride 103 mmol/L (96-108); Creatinine Clr Calc Pharmacy 74.5; Estimated Glomerular Filt Rate > 60; Glucose Random 99 mg/dL (60-115); Potassium 3.4 mmol/L (3.3-5.1); Sodium 142 mmol/L (135-145)
[2020-09-27] MEDS: Atorvastatin Calcium 40 MG TABLET PO (08:39)
[2020-09-27] MEDS: hydroCHLOROthiazide 12.5 MG TABLET PO (08:39)
[2020-09-27] MEDS: Ascorbic Acid 500 MG TABLET PO (08:39)
[2020-09-27] MEDS: Venlafaxine HCl ER 37.5 MG CAP.ER.24H PO (08:39)
[2020-09-27] MEDS: 0.9 % Sodium Chloride Flush 3 ML SYRINGE IVFLUSH ×3 (08:40→20:34)
[2020-09-27] MEDS: Losartan Potassium 50 MG TABLET 100 MG PO (08:40)
--- NOTE | 2020-09-27 10:56 | MHC.CM.PN ---
nurse animal care service worker note met with patient, she reported that she had just left [facility] on 09/25/20 after having a pacemaker placed , she said she came to the er because she had some chest pain and discomfort when she took a deep breath and thought she may have a infections after the pacemaker placement , she was placed on observation status, i explained this to her and gave her the observation paperwork. 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
--- NOTE | 2020-09-27 11:26 | P.CONCA_ITS ---
History of Present Illness History of Present Illness Date of Service: 09/27/20 Requesting physician: Abdelrahman Infante Chief complaint: Chest pain Narrative: 70-year-old female who presented for symptomatic bradycardia with 2-1 av block recently and underwent permanent pacemaker placement. After discharge she called Dr. Fischer because she was getting some chest pains, shortness of breath and felt that she had a fever. She was sent to your do have a chest x- ray to make sure she did not have aspiration. In the ER she had CT scan that which showed trace pericardial effusion, trace dependent right pleural effusion, slight thickening of the wall of the ascending aorta with subtle stranding in the distal mediastinal fat. It was called as nonspecific but concern for aortitis was raised. She is complaining of pleuritic chest pain. She is saying when she lays back or takes a deep breath the pain gets worse.. Pain is better when she sits up anion for worse. She has no documented fever. Her CRP is elevated. No pneumonia noticed on CT scan. [facility] Past Medical History Medical History Bradycardia Breast CA Depression Dyspnea on exertion HLD (hyperlipidemia) HTN (hypertension) Hypothyroidism Lymphedema Melanoma CASSIE (obstructive sleep apnea) Pacemaker Surgical History Surgical History History of bilateral mastectomy Hx of colonoscopy Status post bilateral breast reconstruction Social History Social History Household Members: Spouse Housing: House Do you presently have visiting nurse or other home services: No Alcohol intake: never Patient Tobacco Use Status: Never used Tobacco Tobacco use type: Cigarette Smoked in Last 30 Days: No Use of substances other than those prescribed or required for medical reasons: No Advance Directives: Yes Advance Directives on File: Yes Advance Directives Date on File: 09/23/20 service: No Current occupational status: employed Meds Allergies Allergy/AdvReac Type Severity Reaction Status Date / Time amoxicillin [Amoxicillin] Allergy Intermediate HIVES/RASH/LIP Verified 09/26/20 13:17 SWELLING lisinopril AdvReac Intermediate Cough Verified 09/26/20 13:17 Active Medications: Current Medications Generic Name Dose Route Start Last Admin Trade Name Freq PRN Reason Stop Dose Admin Acetaminophen 650 mg 09/26/20 22:17 Acetaminophen 325 Mg Tablet PO Q6H PRN Pain, Mild (Pain Scale 1-3) Ascorbic Acid 500 mg 09/27/20 09:00 09/27/20 08:39 Ascorbic Acid 500 Mg Tablet PO 500 mg DAILY [facility] Administration Atorvastatin Calcium 40 mg 09/27/20 09:00 09/27/20 08:39 Atorvastatin Calcium 40 Mg Tablet PO 40 mg DAILY [facility] Administration Colchicine 0.6 mg 09/27/20 11:30 Colchicine 0.6 Mg Tablet PO BID [facility] Hydrochlorothiazide 12.5 mg 09/27/20 09:00 09/27/20 08:39 Hydrochlorothiazide 12.5 Mg Tablet PO 12.5 mg DAILY [facility] Administration Protocol Levothyroxine Sodium 100 mcg 09/27/20 06:30 09/27/20 06:19 Levothyroxine Sodium 100 Mcg Tablet PO 100 mcg DAILY@0630 [facility] Administration Losartan Potassium 100 mg 09/27/20 09:00 09/27/20 08:40 Losartan Potassium 50 Mg Tablet PO 100 mg DAILY [facility] Administration Protocol Multivitamins/Minerals 1 tab 09/27/20 09:00 09/27/20 08:39 Vits A,C,E/Lutein/Minerals Tablet PO 1 tab DAILY [facility] Administration Sodium Chloride 3 ml 09/27/20 00:00 09/27/20 08:40 0.9 % Sodium Chloride Flush 3 Ml Syringe IVFLUSH 3 ml QSHIFT [facility] Administration Venlafaxine HCl 37.5 mg 09/27/20 09:00 09/27/20 08:39 Venlafaxine Hcl Er 37.5 Mg Cap.Er.24h PO 37.5 mg DAILY [facility] Administration Home Medications Medication Instructions Recorded Confirmed Last Taken Type PreserVision AREDS-2 1 tab PO DAILY 09/23/20 09/26/20 09/22/20 History ascorbic acid (vitamin C) [Vitamin 500 mg PO DAILY 09/23/20 09/26/20 09/22/20 History C] atorvastatin 1 tab PO DAILY 09/23/20 09/26/20 09/22/20 History hydrochlorothiazide 1 cap PO DAILY 09/23/20 09/26/20 09/22/20 History levothyroxine 1 tab PO DAILY 09/23/20 09/26/20 09/23/20 History losartan 1 tab PO DAILY 09/23/20 09/26/20 09/22/20 History venlafaxine 1 cap PO DAILY 09/23/20 09/26/20 09/22/20 History Physical Exam Vital Signs: Vital Signs: Last Vital Signs Temp 96.8 F 09/27/20 07:54 Pulse 103 H 09/27/20 08:40 Resp 18 09/27/20 07:54 BP 134/87 09/27/20 08:40 Pulse Ox 94 09/27/20 07:54 Body Mass Index 29.2 GENERAL APPEARANCE: in no acute distress, pleasant. NECK: no carotid bruit, no jugular venous distention. SKIN: Left chest wall pacemaker site is stable. No sign of infection or hematoma. HEART: no murmurs, regular rate and rhythm. LUNGS: clear to auscultation bilaterally. ABDOMEN: soft, nontender. EXTREMITIES: no edema. PERIPHERAL PULSES: equal. NEUROLOGIC: No gross deficits, AAO X 3 Results Labs and Meds Result diagrams: 09/27/20 06:28 09/27/20 06:28 Lab results: Laboratory Results - last 24 hr 09/26/20 09/26/20 09/26/20 14:35 14:35 14:35 WBC 9.6 RBC 4.08 L Hgb 11.8 L Hct 35.2 L MCV 86.3 MCH 28.9 MCHC 33.5 RDW 13.4 Plt Count 167 MPV 10.7 Immature Gran % (Auto) 0.4 Neut % (Auto) 72.0 Lymph % (Auto) 20.5 [place] % (Auto) 6.6 Eos % (Auto) 0.2 Baso % (Auto) 0.3 Lymph # (Auto) 2.0 [place] # (Auto) 0.6 Eos # (Auto) 0.0 Baso # (Auto) 0.0 Abs Immat Gran (auto) 0.04 H Absolute Neuts (auto) 6.9 Absolute Nucleated RBC 0.000 Nucleated RBC % (auto) 0.0 ESR 31 H Hold Blue Top SEE NOTE Sodium Potassium Chloride Carbon Dioxide Anion Gap BUN Creatinine Estim Creat Clear Calc Estimated GFR Random Glucose Lactic Acid Calcium Magnesium Total Bilirubin Direct Bilirubin AST ALT Alkaline Phosphatase Troponin I High Sens C-Reactive Protein Total Protein Albumin Urine Color Urine Appearance Urine pH Ur Specific [place] Urine Protein Urine Glucose (UA) Urine Ketones Urine Blood Urine Nitrite Ur Leukocyte Esterase Urine RBC Urine WBC Ur Squamous Epith Cells Urine Bacteria COVID-19 (WILL) COVID-19 [employer] Com 09/26/20 09/26/20 09/26/20 14:36 14:36 14:36 WBC RBC Hgb Hct MCV MCH MCHC RDW Plt Count MPV Immature Gran % (Auto) Neut % (Auto) Lymph % (Auto) [place] % (Auto) Eos % (Auto) Baso % (Auto) Lymph # (Auto) [place] # (Auto) Eos # (Auto) Baso # (Auto) Abs Immat Gran (auto) Absolute Neuts (auto) Absolute Nucleated RBC Nucleated RBC % (auto) ESR Hold Blue Top Sodium 142 Potassium 3.8 D Chloride 103 Carbon Dioxide 30 H Anion Gap 13 BUN 9 Creatinine 0.74 Estim Creat Clear Calc 69.4 Estimated GFR > 60 Random Glucose 118 H Lactic Acid Calcium 9.3 D Magnesium 2.0 Total Bilirubin 0.8 Direct Bilirubin 0.4 AST 26 ALT 29 Alkaline Phosphatase 77 Troponin I High Sens 94.1 H* D C-Reactive Protein 2.93 H Total Protein 7.1 Albumin 4.3 Urine Color Urine Appearance Urine pH Ur Specific [place] Urine Protein Urine Glucose (UA) Urine Ketones Urine Blood Urine Nitrite Ur Leukocyte Esterase Urine RBC Urine WBC Ur Squamous Epith Cells Urine Bacteria COVID-19 (WILL) COVID-19 [email or web address] 09/26/20 09/26/20 09/26/20 14:36 17:06 20:08 WBC RBC Hgb Hct MCV MCH MCHC RDW Plt Count MPV Immature Gran % (Auto) Neut % (Auto) Lymph % (Auto) [place] % (Auto) Eos % (Auto) Baso % (Auto) Lymph # (Auto) [place] # (Auto) Eos # (Auto) Baso # (Auto) Abs Immat Gran (auto) Absolute Neuts (auto) Absolute Nucleated RBC Nucleated RBC % (auto) ESR Hold Blue Top Sodium Potassium Chloride Carbon Dioxide Anion Gap BUN Creatinine Estim Creat Clear Calc Estimated GFR Random Glucose Lactic Acid 0.8 Calcium Magnesium Total Bilirubin Direct Bilirubin AST ALT Alkaline Phosphatase Troponin I High Sens 86.5 H* C-Reactive Protein Total Protein Albumin Urine Color STRAW Urine Appearance CLEAR Urine pH 6.0 Ur Specific [place] <= 1.005 Urine Protein NEG Urine Glucose (UA) NEG Urine Ketones NEG Urine Blood TRACE Urine Nitrite NEG Ur Leukocyte Esterase NEG Urine RBC 0-2 Urine WBC 0 Ur Squamous Epith Cells TRACE Urine Bacteria NONE COVID-19 (WILL) COVID-19 Clin Com 09/26/20 09/27/20 09/27/20 20:44 06:28 06:28 WBC 7.0 RBC 3.98 L Hgb 11.3 L Hct 33.9 L MCV 85.2 MCH 28.4 MCHC 33.3 RDW 13.2 Plt Count 166 MPV 11.2 Immature Gran % (Auto) 0.4 Neut % (Auto) 61.5 Lymph % (Auto) 29.5 [place] % (Auto) 7.0 Eos % (Auto) 1.0 Baso % (Auto) 0.6 Lymph # (Auto) 2.1 [place] # (Auto) 0.5 Eos # (Auto) 0.1 Baso # (Auto) 0.0 Abs Immat Gran (auto) 0.03 Absolute Neuts (auto) 4.3 Absolute Nucleated RBC 0.000 Nucleated RBC % (auto) 0.0 ESR Hold Blue Top Sodium 142 Potassium 3.4 Chloride 103 Carbon Dioxide 28 Anion Gap 14 BUN 10 Creatinine 0.69 Estim Creat Clear Calc 74.5 Estimated GFR > 60 Random Glucose 99 Lactic Acid Calcium 8.9 Magnesium Total Bilirubin Direct Bilirubin AST ALT Alkaline Phosphatase Troponin I High Sens C-Reactive Protein Total Protein Albumin Urine Color Urine Appearance Urine pH Ur Specific [place] Urine Protein Urine Glucose (UA) Urine Ketones Urine Blood Urine Nitrite Ur Leukocyte Esterase Urine RBC Urine WBC Ur Squamous Epith Cells Urine Bacteria COVID-19 (WILL) Negative COVID-19 Clin Com See Note Imaging Radiologist's impression: Impressions Chest X-Ray 09/26/20 13:25 IMPRESSION: Unremarkable chest exam. No change from 09/25/2020 Chest CTA 09/26/20 14:15 IMPRESSION: 1. No evidence of pulmonary embolism. 2. No acute airways disease. 3. Cardiomegaly with pacemaker leads in heart. 4. Trace pericardial effusion 5. Trace dependent right pleural effusion. 6. Slight thickening of the wall of the ascending aorta with subtle stranding in the adjacent mediastinal fat. This is nonspecific.. An aortitis could give this appearance. Clinically correlate. VTE: negative This critical result was discussed with Dr. Rdz on 09/26/2020, 5:20 PM and it was ascertained that the content and urgency of the report was understood at the time of direct communication. Assessment and Plan (1) Chest pain: Qualifiers: Chest pain type: chest pain on breathing Qualified Code(s): R07.1 - Chest pain on breathing Status: Acute (2) Pericarditis: Status: Acute (3) Aortitis: Status: Acute Pleasant 70-year-old male here for pleuritic chest pain and mild shortness of breath. No fevers. She is status post pacemaker placement. She has a trace pericardial effusion on the CAT scan. Overall story sound like pericarditis after pacemaker placement. I will check a limited echocardiogram. We will start her on colchicine 0.6 mg twice a day for couple of days and then 0.[address] scan is raise concern for aortitis. I think this is an incidental finding and the changes are quite nonspecific. I have asked the hospitalist to discuss with vascular surgery if they have any experience with this and can not comment. I think this does not need any further workup right now as it is quite nonspecific and unrelated to her clinical presentation. Blood pressure control is good. Thank you for allowing me to participate in the care of your patient. Please feel free to contact me if you have any questions. Procedures Date of Service Date of Service: 09/27/20
--- NOTE | 2020-09-27 11:41 | P.PNIM_ITS ---
Subjective Subjective Date of Service: 09/27/20 Interval History: Complaining of chest pain when lying flat, and with deep breathing, denies fever chills, complaining of mild cough, had dry nose and mild epistaxis when blew her nose yesterday, now resolved, no shortness of breath, chest pain is improving in intensity. ros [employer] no headache no dizziness Respiratory no shortness of breath GI no nausea no vomiting no diarrhea skin no rash Physical Exam Vital Signs: Vital Signs: Last Vital Signs Temp 96.8 F 09/27/20 07:54 Pulse 103 H 09/27/20 08:40 Resp 18 09/27/20 07:54 BP 134/87 09/27/20 08:40 Pulse Ox 94 09/27/20 07:54 Body Mass Index 29.2 General no acute distress. Neck is supple no JVD. CVS regular rate rhythm, no tenderness to palpation anterior chest Respiratory lungs clear to auscultation, no respiratory distress, no wheeze, no rhonchi. No rubs Gastrointestinal abdomen soft, nontender, bowel sounds audible, no guarding , no rigidity. Extremities no clubbing cyanosis or edema. Neuro nonfocal patient moving all 4 extremity speech clear. Skin no rash physical Objective Data Current Medications Generic Name Dose Route Start Last Admin Trade Name Freq PRN Reason Stop Dose Admin Acetaminophen 650 mg 09/26/20 22:17 Acetaminophen 325 Mg Tablet PO Q6H PRN Pain, Mild (Pain Scale 1-3) Ascorbic Acid 500 mg 09/27/20 09:00 09/27/20 08:39 Ascorbic Acid 500 Mg Tablet PO 500 mg DAILY [facility] Administration Atorvastatin Calcium 40 mg 09/27/20 09:00 09/27/20 08:39 Atorvastatin Calcium 40 Mg Tablet PO 40 mg DAILY [facility] Administration Colchicine 0.6 mg 09/27/20 11:30 Colchicine 0.6 Mg Tablet PO BID [facility] Hydrochlorothiazide 12.5 mg 09/27/20 09:00 09/27/20 08:39 Hydrochlorothiazide 12.5 Mg Tablet PO 12.5 mg DAILY [facility] Administration Protocol Levothyroxine Sodium 100 mcg 09/27/20 06:30 09/27/20 06:19 Levothyroxine Sodium 100 Mcg Tablet PO 100 mcg DAILY@0630 [facility] Administration Losartan Potassium 100 mg 09/27/20 09:00 09/27/20 08:40 Losartan Potassium 50 Mg Tablet PO 100 mg DAILY [facility] Administration Protocol Multivitamins/Minerals 1 tab 09/27/20 09:00 09/27/20 08:39 Vits A,C,E/Lutein/Minerals Tablet PO 1 tab DAILY [facility] Administration Sodium Chloride 3 ml 09/27/20 00:00 09/27/20 08:40 0.9 % Sodium Chloride Flush 3 Ml Syringe IVFLUSH 3 ml QSHIFT [facility] Administration Venlafaxine HCl 37.5 mg 09/27/20 09:00 09/27/20 08:39 Venlafaxine Hcl Er 37.5 Mg Cap.Er.24h PO 37.5 mg DAILY [facility] Administration Labs CBC & Chem 7: 09/27/20 06:28 09/27/20 06:28 Labs: Laboratory Results - last 24 hr 09/26/20 09/26/20 09/26/20 14:35 14:35 14:35 WBC 9.6 RBC 4.08 L Hgb 11.8 L Hct 35.2 L MCV 86.3 MCH 28.9 MCHC 33.5 RDW 13.4 Plt Count 167 MPV 10.7 Immature Gran % (Auto) 0.4 Neut % (Auto) 72.0 Lymph % (Auto) 20.5 [place] % (Auto) 6.6 Eos % (Auto) 0.2 Baso % (Auto) 0.3 Lymph # (Auto) 2.0 [place] # (Auto) 0.6 Eos # (Auto) 0.0 Baso # (Auto) 0.0 Abs Immat Gran (auto) 0.04 H Absolute Neuts (auto) 6.9 Absolute Nucleated RBC 0.000 Nucleated RBC % (auto) 0.0 ESR 31 H Hold Blue Top SEE NOTE Sodium Potassium Chloride Carbon Dioxide Anion Gap BUN Creatinine Estim Creat Clear Calc Estimated GFR Random Glucose Lactic Acid Calcium Magnesium Total Bilirubin Direct Bilirubin AST ALT Alkaline Phosphatase Troponin I High Sens C-Reactive Protein Total Protein Albumin Urine Color Urine Appearance Urine pH Ur Specific [place] Urine Protein Urine Glucose (UA) Urine Ketones Urine Blood Urine Nitrite Ur Leukocyte Esterase Urine RBC Urine WBC Ur Squamous Epith Cells Urine Bacteria COVID-19 (WILL) COVID-19 Clin Com 09/26/20 09/26/20 09/26/20 14:36 14:36 14:36 WBC RBC Hgb Hct MCV MCH MCHC RDW Plt Count MPV Immature Gran % (Auto) Neut % (Auto) Lymph % (Auto) [place] % (Auto) Eos % (Auto) Baso % (Auto) Lymph # (Auto) [place] # (Auto) Eos # (Auto) Baso # (Auto) Abs Immat Gran (auto) Absolute Neuts (auto) Absolute Nucleated RBC Nucleated RBC % (auto) ESR Hold Blue Top Sodium 142 Potassium 3.8 D Chloride 103 Carbon Dioxide 30 H Anion Gap 13 BUN 9 Creatinine 0.74 Estim Creat Clear Calc 69.4 Estimated GFR > 60 Random Glucose 118 H Lactic Acid Calcium 9.3 D Magnesium 2.0 Total Bilirubin 0.8 Direct Bilirubin 0.4 AST 26 ALT 29 Alkaline Phosphatase 77 Troponin I High Sens 94.1 H* D C-Reactive Protein 2.93 H Total Protein 7.1 Albumin 4.3 Urine Color Urine Appearance Urine pH Ur Specific [place] Urine Protein Urine Glucose (UA) Urine Ketones Urine Blood Urine Nitrite Ur Leukocyte Esterase Urine RBC Urine WBC Ur Squamous Epith Cells Urine Bacteria COVID-19 (WILL) [employer] 09/26/20 09/26/20 09/26/20 14:36 17:06 20:08 WBC RBC Hgb Hct MCV MCH MCHC RDW Plt Count MPV Immature Gran % (Auto) Neut % (Auto) Lymph % (Auto) [place] % (Auto) Eos % (Auto) Baso % (Auto) Lymph # (Auto) [place] # (Auto) Eos # (Auto) Baso # (Auto) Abs Immat Gran (auto) Absolute Neuts (auto) Absolute Nucleated RBC Nucleated RBC % (auto) ESR Hold Blue Top Sodium Potassium Chloride Carbon Dioxide Anion Gap BUN Creatinine Estim Creat Clear Calc Estimated GFR Random Glucose Lactic Acid 0.8 Calcium Magnesium Total Bilirubin Direct Bilirubin AST ALT Alkaline Phosphatase Troponin I High Sens 86.5 H* C-Reactive Protein Total Protein Albumin Urine Color STRAW Urine Appearance CLEAR Urine pH 6.0 Ur Specific [place] <= 1.005 Urine Protein NEG Urine Glucose (UA) NEG Urine Ketones NEG Urine Blood TRACE Urine Nitrite NEG Ur Leukocyte Esterase NEG Urine RBC 0-2 Urine WBC 0 Ur Squamous Epith Cells TRACE Urine Bacteria NONE COVID-19 (WILL) [employer] 09/26/20 09/27/20 09/27/20 20:44 06:28 06:28 WBC 7.0 RBC 3.98 L Hgb 11.3 L Hct 33.9 L MCV 85.2 MCH 28.4 MCHC 33.3 RDW 13.2 Plt Count 166 MPV 11.2 Immature Gran % (Auto) 0.4 Neut % (Auto) 61.5 Lymph % (Auto) 29.5 [place] % (Auto) 7.0 Eos % (Auto) 1.0 Baso % (Auto) 0.6 Lymph # (Auto) 2.1 [place] # (Auto) 0.5 Eos # (Auto) 0.1 Baso # (Auto) 0.0 Abs Immat Gran (auto) 0.03 Absolute Neuts (auto) 4.3 Absolute Nucleated RBC 0.000 Nucleated RBC % (auto) 0.0 ESR Hold Blue Top Sodium 142 Potassium 3.4 Chloride 103 Carbon Dioxide 28 Anion Gap 14 BUN 10 Creatinine 0.69 Estim Creat Clear Calc 74.5 Estimated GFR > 60 Random Glucose 99 Lactic Acid Calcium 8.9 Magnesium Total Bilirubin Direct Bilirubin AST ALT Alkaline Phosphatase Troponin I High Sens C-Reactive Protein Total Protein Albumin Urine Color Urine Appearance Urine pH Ur Specific [place] Urine Protein Urine Glucose (UA) Urine Ketones Urine Blood Urine Nitrite Ur Leukocyte Esterase Urine RBC Urine WBC Ur Squamous Epith Cells Urine Bacteria COVID-19 (WILL) Negative COVID-19 Clin Com See Note Quality Stroke Does the patient have a stroke diagnosis?: No VTE Prior VTE?: No VTE Risk Level:: Medical - moderate - high VTE Device Contraindication: N/A - Device Ordered VTE Drug Contraindication: Treatment Not Indicated Assessment and Plan (1) Pericarditis: Status: Acute (2) Status post cardiac pacemaker procedure: Status: Acute (3) Elevated troponin: Status: Acute (4) Aortitis: Status: Acute (5) Chest pain: Status: Acute Assessment and Plan: 70-year-old female with a past medical history of hypertension, hyperlipidemia, depression, CASSIE, hypothyroidism, history of breast cancer, recent admission to the hospital for [place] type 2 block status post pacemaker discharged yesterday; presented to the hospital today with a chief complaint of chest pain. CT scan showed possible aortitis. Admitted for further management. Chest pain: Persistent chest pain worse with deep breathing and lying flat lik poornima related to postprocedure pericarditis, CT chest raise question for aortitis Case discussed with Cardiology , patient started on colchicine, follow echo report, requested vascular surgery to review CT chest for concern for aortitis Chest pain atypical for acute coronary syndrome,Troponins are indeterminate Consult ID Monitor on telemetry Supportive care, monitor CRP and labs Hypertension BP stable continue home medication hyperlipidemia: Continue statin Hypothyroidism: Continue levothyroxine Depression: Continue venlafaxine, no worsening depression DVT prophylaxis: SCD boots Code status: Full code
[2020-09-27] MEDS: Colchicine 0.6 MG TABLET PO ×2 (12:32→20:33)
--- NOTE | 2020-09-27 13:00 | CA_ITS ---
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 - There is moderately increased left ventricular wall thickness. - Normal right ventricular cavity size and systolic function. - Small plaque is seen in the ascending aorta. - There is a trivial loculated pericardial effusion overlying the left ventricle. Findings Left Ventricle Normal left ventricular size and systolic function. There is moderately increased left ventricular wall thickness. The visually estimated ejection fraction is between 55-60%. There is no evidence of regional wall motion abnormalities. Diastolic function is indeterminate on the basis of available data. Right Ventricle Normal right ventricular cavity size and systolic function. Great Vessels Small plaque is seen in the ascending aorta. Venous The inferior vena cava is normal in size and collapses greater than 50% with inspiration. Pericardium/Pleural There is a trivial loculated pericardial effusion overlying the left ventricle. Measurements 2D Linear Measurements IVSd: 1.38 0.6-0.9/0.6-1.0 cm LVIDd: 4.56 3.9-5.3/4.2-5.9 cm LVIDd Index: 2.56 2.4-3.2/2.2-3.1 cm/m2 LVIDs: 3.03 2.0-3.6 cm LVPWd: 1.35 0.7-1.1 cm LV Mass: 304.31 67-162/88-224 g LV Mass Index: 170.96 43-95/49-115 g/m2 2D Systolic Function EF 4C: 62.90 >55% EF 2C: 57.40 >55% EF BiP: 61.10 >55% Updated in Other Vendor System with Status of Final Loi Dorsey MD electronically signed on 09/27/2020 4:25:43 PM with status of Final
--- NOTE | 2020-09-27 14:40 | W.PM.IDCN ---
History of Present Illness Data of Consult Service Date: 09/27/20 Requesting physician: Abdelrahman Infante Primary Care Provider: Iris Ragland MD HPI Reason for consult: chest pain She presents with 6/10 chest pain,some with inspiration. She has symptoms worsening over last day. She had pacemaker placed three days ago. She has no purulence from pacer site. She describes anorexia which she gets with fever (now better) and fatigue. She has no Lyme diagnosis or recent imbedded ticks and test netative. She received two doses [employer] COVID vaccine in August. She has Hashimotos but is stable. She has no tuberculosis and has only lived here and in [place] and has no manager terminal infections Review of Systems Review of Systems: Yes all other systems are reviewed and are negative PMFSH Past Medical History Medical History Bradycardia Breast CA Depression Dyspnea on exertion HLD (hyperlipidemia) HTN (hypertension) Hypothyroidism Lymphedema Melanoma CASSIE (obstructive sleep apnea) Pacemaker Family History Family history: reviewed and not pertinent Surgical History Surgical History History of bilateral mastectomy Hx of colonoscopy Status post bilateral breast reconstruction Social History Social History Household Members: Spouse Housing: House Do you presently have visiting nurse or other home services: No Alcohol intake: never Patient Tobacco Use Status: Never used Tobacco Tobacco use type: Cigarette Smoked in Last 30 Days: No Use of substances other than those prescribed or required for medical reasons: No Advance Directives: Yes Advance Directives on File: Yes Advance Directives Date on File: 09/23/20 service: No Current occupational status: employed Meds Allergies Allergy/AdvReac Type Severity Reaction Status Date / Time amoxicillin [Amoxicillin] Allergy Intermediate HIVES/RASH/LIP Verified 09/26/20 13:17 SWELLING lisinopril AdvReac Intermediate Cough Verified 09/26/20 13:17 Active Medications: Current Medications Generic Name Dose Route Start Last Admin Trade Name Freq PRN Reason Stop Dose Admin Acetaminophen 650 mg 09/26/20 22:17 Acetaminophen 325 Mg Tablet PO Q6H PRN Pain, Mild (Pain Scale 1-3) Ascorbic Acid 500 mg 09/27/20 09:00 09/27/20 08:39 Ascorbic Acid 500 Mg Tablet PO 500 mg DAILY TOMMIE Administration Atorvastatin Calcium 40 mg 09/27/20 09:00 09/27/20 08:39 Atorvastatin Calcium 40 Mg Tablet PO 40 mg DAILY TOMMIE Administration Colchicine 0.6 mg 09/27/20 11:30 09/27/20 12:32 Colchicine 0.6 Mg Tablet PO 0.6 mg BID TOMMIE Administration Hydrochlorothiazide 12.5 mg 09/27/20 09:00 09/27/20 08:39 Hydrochlorothiazide 12.5 Mg Tablet PO 12.5 mg DAILY TOMMIE Administration Protocol Levothyroxine Sodium 100 mcg 09/27/20 06:30 09/27/20 06:19 Levothyroxine Sodium 100 Mcg Tablet PO 100 mcg DAILY@0630 TOMMIE Administration Losartan Potassium 100 mg 09/27/20 09:00 09/27/20 08:40 Losartan Potassium 50 Mg Tablet PO 100 mg DAILY TOMMIE Administration Protocol Multivitamins/Minerals 1 tab 09/27/20 09:00 09/27/20 08:39 Vits A,C,E/Lutein/Minerals Tablet PO 1 tab DAILY TOMMIE Administration Sodium Chloride 3 ml 09/27/20 00:00 09/27/20 08:40 0.9 % Sodium Chloride Flush 3 Ml Syringe IVFLUSH 3 ml QSHIFT TOMMIE Administration Venlafaxine HCl 37.5 mg 09/27/20 09:00 09/27/20 08:39 Venlafaxine Hcl Er 37.5 Mg Cap.Er.24h PO 37.5 mg DAILY TOMMIE Administration Home Medications Medication Instructions Recorded Confirmed Last Taken Type PreserVision AREDS-2 1 tab PO DAILY 09/23/20 09/26/20 09/22/20 History ascorbic acid (vitamin C) [Vitamin 500 mg PO DAILY 09/23/20 09/26/20 09/22/20 History C] atorvastatin 1 tab PO DAILY 09/23/20 09/26/20 09/22/20 History hydrochlorothiazide 1 cap PO DAILY 09/23/20 09/26/20 09/22/20 History levothyroxine 1 tab PO DAILY 09/23/20 09/26/20 09/23/20 History losartan 1 tab PO DAILY 09/23/20 09/26/20 09/22/20 History venlafaxine 1 cap PO DAILY 09/23/20 09/26/20 09/22/20 History Physical Exam Vital Signs: Vital Signs: Last Vital Signs Temp 97.0 F 09/27/20 11:39 Pulse 88 09/27/20 11:39 Resp 18 09/27/20 11:39 BP 123/56 L 09/27/20 11:39 Pulse Ox 100 09/27/20 11:39 Body Mass Index 29.2 Const: General: cooperative Orientation/consciousness: patient oriented x3 HENMT: Head: Yes normal to inspection Mouth: Normal oral and palatal mucosa present Eyes: General: appearance normal, both eyes and all related structures Resp: Effort & Inspection: able to speak in complete sentences and tachypneic Cardio: Rate: regular rate Rhythm: regular rhythm GI: Palpation (GI): Soft to palpation and nontender : General: Yes no CVA tenderness Back/Spine/Pelvis: Back: no CVA tenderness Skin: General skin exam: no rashes or lesions noted Neuro: General: patient oriented x3 and moves all extremities Extrem: General: Yes normal to inspection Psych: Appearance: grossly normal Results Labs CBC & Chem 7: 09/27/20 06:28 09/27/20 06:28 Labs: Short CBC 09/26/20 09/27/20 Range/Units 14:35 06:28 WBC 9.6 7.0 (4.8-10.8) X10*3/uL Hgb 11.8 L 11.3 L (12.0-16.0) g/dl Hct 35.2 L 33.9 L (37-47) % Plt Count 167 166 (160-400) X10*3/uL BMP 09/26/20 09/27/20 14:36 06:28 Sodium 142 142 Potassium 3.8 D 3.4 Chloride 103 103 Carbon Dioxide 30 H 28 BUN 9 10 Creatinine 0.74 0.69 Calcium 9.3 D 8.9 Liver Function 09/26/20 Range/Units 14:36 Total Bilirubin 0.8 (0.0-1.0) mg/dL Direct Bilirubin 0.4 (0.0-0.5) mg/dL AST 26 (5-31) U/L ALT 29 (0-31) U/L Alkaline Phosphatase 77 (39-117) U/L Albumin 4.3 (3.5-5.0) g/dL Urine 09/26/20 Range/Units 14:36 Urine Color STRAW Urine Appearance CLEAR Urine pH 6.0 (5.0-8.0) Ur Specific [place] <= 1.005 (1.005-1.025) Urine Protein NEG (NEG-TRACE) MG/DL Urine Glucose (UA) NEG (NEG) MG/DL Assessment and Plan (1) Pericarditis: Status: Acute (2) Status post cardiac pacemaker procedure: Status: Acute (3) Elevated troponin: Status: Acute (4) Aortitis: Status: Acute She has recent pacer placement and blood cultures negative There is very small amount stranding CT film and Thoracic is reviewing Most likely recent pacer placement for third degree block may have led to some irritative symptoms THere are no signs of bacterial sepsis Less likely causes are viral syndrome including COVID itself,enterovirus (around this time of year) and parvovirus. Very unlikely is collagen vascular disease or breast cancer recurrence or reaction to Pfizer vaccine Suggest Check RVP Check Hepatitis B and C and HIV as well as parvovirus Echo review per Cardiology No antibiotics at this time
[2020-09-27 16:07] LABS: Adenovirus PCR Not Detected (Not Detect.); Bordetella parapertussis PCR Not Detected (Not Detect.); Bordetella pertussis PCR Not Detected (Not Detect.); Chlamydia pneumoniae PCR Not Detected (Not Detect.); Coronavirus 229E PCR Not Detected (Not Detect.); Coronavirus HKU1 PCR Not Detected (Not Detect.); Coronavirus NL63 PCR Not Detected (Not Detect.); Coronavirus OC43 PCR Not Detected (Not Detect.); Human metapneumovirus PCR Not Detected (Not Detect.); Influenza A PCR Not Detected (Not Detect.); Influenza B PCR Not Detected (Not Detect.); Mycoplasma pneumoniae PCR Not Detected (Not Detect.); Parainfluenza 1 PCR Not Detected (Not Detect.); Parainfluenza 2 PCR Not Detected (Not Detect.); Parainfluenza 3 PCR Not Detected (Not Detect.); Parainfluenza 4 PCR Not Detected (Not Detect.); RSV PCR Not Detected (Not Detect.); Rhino/Enterovirus PCR Not Detected (Not Detect.); SARS-CoV-2 PCR Not Detected (Not Detect.)
[2020-09-28 04:00] VITALS: BP 120/59; PULSE 51; RESP 18; TEMP 36.6; O2SAT 96
[2020-09-28] MEDS: Levothyroxine Sodium 100 MCG TABLET PO (06:18)
[2020-09-28 07:07] LABS: C Reactive Protein 3.22 mg/dL (< or = 0.50)
[2020-09-28 07:23] LABS: Erythrocyte Sedimentation Rate 37 MM/HR (0-20)
[2020-09-28 08:00] VITALS: BP 121/61; PULSE 85; RESP 18; TEMP 36; O2SAT 99
[2020-09-28 08:41] VITALS: BP 121/61; PULSE 85
[2020-09-28] MEDS: Atorvastatin Calcium 40 MG TABLET PO (08:41)
[2020-09-28] MEDS: hydroCHLOROthiazide 12.5 MG TABLET PO (08:41)
[2020-09-28] MEDS: Losartan Potassium 50 MG TABLET 100 MG PO (08:41)
[2020-09-28] MEDS: Ascorbic Acid 500 MG TABLET PO (08:41)
[2020-09-28] MEDS: Venlafaxine HCl ER 37.5 MG CAP.ER.24H PO (08:41)
[2020-09-28] MEDS: Colchicine 0.6 MG TABLET PO (08:41)
[2020-09-28] MEDS: 0.9 % Sodium Chloride Flush 3 ML SYRINGE IVFLUSH (08:42)
[2020-09-28 11:24] VITALS: BP 114/58; PULSE 82; RESP 18; TEMP 36; O2SAT 96
--- NOTE | 2020-09-28 11:28 | P.DS_ITS ---
DS: Providers Provider Date of Service: 09/28/20 Date of admission: 09/26/20 22:17 Primary care physician: Iris Ragland MD Consults: 09/26/20 22:17 Consult to Cardiology Routine Consulting Provider: Loi Dorsey Reason for consultation: chest pain; recent pacemaker; ?Aortitis 09/27/20 11:36 Consult to Vascular Surgery Routine Consulting Provider: Angel Carmona Reason for consultation: ? aortitis Has provider been notified: No 09/27/20 11:54 Consult to Infectious Diseases Stat Consulting Provider: Alejandra Pena Reason for consultation: aortitis Has provider been notified: No DS: Diagnosis Discharge Diagnosis (1) Chest pain: Status: Acute DS: Medications Discharge Medications Home Medications: Home Medications Medication Instructions Recorded Confirmed PreserVision AREDS-2 1 tab PO DAILY 09/23/20 09/26/20 ascorbic acid (vitamin C) [Vitamin 500 mg PO DAILY 09/23/20 09/26/20 C] atorvastatin 1 tab PO DAILY 09/23/20 09/26/20 hydrochlorothiazide 1 cap PO DAILY 09/23/20 09/26/20 levothyroxine 1 tab PO DAILY 09/23/20 09/26/20 losartan 1 tab PO DAILY 09/23/20 09/26/20 venlafaxine 1 cap PO DAILY 09/23/20 09/26/20 Previous Rx's Medication Instructions Recorded colchicine [Colcrys] 0.6 mg PO BID #60 tab 09/28/20 DS: Summary Hospital Course Hospital Course: history of presenting illness Chief Complaint: Chest pain 70-year-old female with a past medical history of hypertension, hyperlipidemia, depression, CASSIE, hypothyroidism, history of breast cancer, recent admission to the hospital for Mobitz type 2 block status post pacemaker discharged yesterday; presented to the hospital today with a chief complaint of chest pain. Patient reports that she had chest pain located in the center of the chest, no associated nausea vomiting lightheadedness dizziness. Reports chest pain worsens with deep inspiration and also lying flat. Also complains of subjective fevers. Denies any cough or sputum production. Denies any GI or symptoms. Review of all other systems is negative except mentioned above That she also notified Dr Lawton who placed the pacemaker. ER course: patient pacemaker site looks normal; EKG nonischemic, troponins indeterminate; CT scan showed possible aortitis but patient has been afebrile, no leukocytosis, normal lactate; decided to hold off antibiotics for now; discussed with cardiology Dr. Dorsey who recommended admission and will evaluate the patient in the morning. hospital course 70-year-old female with a past medical history of hypertension, hyperlipidemia, depression, CASSIE, hypothyroidism, history of breast cancer, recent admission to the hospital for Mobitz type 2 block status post pacemaker discharged 09/25, presented to the hospital with a chief complaint of chest pain,CT scan of chest showed possible aortitis patient admitted to telemetry unit, patient CT films were reviewed by vascular surgeon Dr. Carmona and he felt that feels more over-read and patient does not happy otitis patient also seen by Infectious Disease she also ruled out possibility of aortitis patient seen by Cardiology since patient pain was worse with lying flat and deep breathing it was felt that likely pain is related to post procedure pericarditis therefore patient placed on colchicine her chest pain has significantly improved therefore she is being discharged home on 4 weeks of colchicine 0.6 mg by mouth b.i.d. she will have outpatient follow-up with community engagement specialist Dr. Dorsey in next 2-4 weeks, as part of workup viral cultures, hepatitis-B and C serology has been sent labs are pending it has been recommended to have follow-up PCP and Cardiology appointment to obtain report of above tests. in regard to recent pacemaker placement patient has been recommended to continue post pacemaker instructions and follow-up with thoracic surgery in 2 weeks Time Spent with Patient Time attestation: Total time spent providing and/or coordinating discharge services: Discharge coordination time: Greater than 30 minutes Quality: Stroke Does the patient have a stroke diagnosis?: No Physical Exam Vital Signs: Vital Signs: Last Vital Signs Temp 96.8 F 09/28/20 11:24 Pulse 82 09/28/20 11:24 Resp 18 09/28/20 11:24 BP 114/58 L 09/28/20 11:24 Pulse Ox 96 09/28/20 11:24 Body Mass Index 29.2 General no acute distress. Neck is supple no JVD. CVS regular rate rhythm, no tenderness to palpation anterior chest wall, no surrounding erythema or tenderness at site of pacemaker,dressing in place. Respiratory lungs clear to auscultation, no respiratory distress, no wheeze, no rhonchi. No rubs Gastrointestinal abdomen soft, nontender, bowel sounds audible, no guarding , no rigidity. Extremities no clubbing cyanosis or edema. Neuro nonfocal, patient moving all 4 extremity speech clear, normal gait. Skin no rash physical DS: Data Data Completed and Pending Labs on day of discharge: Laboratory Results - last 24 hr 09/28/20 09/28/20 06:16 06:16 ESR 37 H C-Reactive Protein 3.22 H Preliminary micro results at discharge 09/26/20 20:18 Blood Culture - Preliminary Blood - Venous No growth after 24 hours. 09/26/20 20:08 Blood Culture - Preliminary Blood - Venous No growth after 24 hours. Discharge Plan Discharge Patient Disposition: Home, Self-Care Discharge Diagnosis: chest pain pericarditis status post pacemaker placement Referrals: Iris Ragland MD [Primary Care Provider] - 1 Week Discharge Medications: New colchicine [Colcrys] 0.6 mg Tablet 0.6 mg PO BID Qty: 60 RF: 0 Continued atorvastatin 40 mg tablet 1 tab PO DAILY RF: 0 venlafaxine 37.5 mg capsule,extended release 24hr 1 cap PO DAILY RF: 0 levothyroxine 100 mcg tablet 1 tab PO DAILY RF: 0 ascorbic acid (vitamin C) [Vitamin C] 500 mg Tablet 500 mg PO DAILY RF: 0 hydrochlorothiazide 12.5 mg capsule 1 cap PO DAILY RF: 0 losartan 100 mg tablet 1 tab PO DAILY RF: 0 PreserVision AREDS-2 250-90-40-1 mg Capsule 1 tab PO DAILY RF: 0 Discharge Orders: Discharge Order (Routine); Ordered 09/28/20 Ordered By: Abdelrahman Infante Diet: advance to usual diet Activity on Discharge: No heavy lifting Stand Alone Forms: Patient Portal Discharge page Care Plan Goals: chest pain likely related to pericarditis take colchicine as prescribed for 4 weeks and follow-up with cardiology in next 2-4 weeks Health Concerns: continue to follow post pacemaker instructions and follow-up with thoracic surgery in 2 weeks Plan of Treatment: follow-up with PCP and Cardiology as previously planned Assessment: as above
--- NOTE | 2020-09-28 11:52 | PM.PNCARD ---
Subjective Subjective Date of Service: 09/28/20 Interval history: Feeling better, mild chest pain, GI upset Physical Exam Vital Signs: Last Vital Signs Temp 96.8 F 09/28/20 11:24 Pulse 82 09/28/20 11:24 Resp 18 09/28/20 11:24 BP 114/58 L 09/28/20 11:24 Pulse Ox 96 09/28/20 11:24 Body Mass Index 29.2 GENERAL APPEARANCE: in no acute distress, pleasant. NECK: no carotid bruit, no jugular venous distention. SKIN: Left chest wall pacemaker site is stable. No sign of infection or hematoma. HEART: no murmurs, regular rate and rhythm. LUNGS: clear to auscultation bilaterally. ABDOMEN: soft, nontender. EXTREMITIES: no edema. PERIPHERAL PULSES: equal. NEUROLOGIC: No gross deficits, AAO X 3 Results Labs and Meds Result diagrams: 09/27/20 06:28 09/27/20 06:28 Lab results: Laboratory Results - last 24 hr 09/28/20 09/28/20 06:16 06:16 ESR 37 H C-Reactive Protein 3.22 H Progress Note: A&P Assessment and plan (1) Pericarditis: Status: Acute Assessment and Plan: Pleasant 70-year-old female who had pacemaker placed for symptomatic bradycardia. She presented 1 day later which sharp chest pain with small pericardial effusion. This is likely due to pericarditis. Device was interrogated and is functioning fine. Improving with colchicine. She has some GI upset with the b.i.d. dosing. Please change colchicine to once a day. Can go home. We will see her in the office in few weeks. Thank you for allowing me to participate in the care of your patient. Please feel free to contact me if you have any questions. Fall Risk Details Current Medications: Current Medications Generic Name Dose Route Start Last Admin Trade Name Freq PRN Reason Stop Dose Admin Acetaminophen 650 mg 09/26/20 22:17 Acetaminophen 325 Mg Tablet PO Q6H PRN Pain, Mild (Pain Scale 1-3) Ascorbic Acid 500 mg 09/27/20 09:00 09/28/20 08:41 Ascorbic Acid 500 Mg Tablet PO 500 mg DAILY TOMMIE Administration Atorvastatin Calcium 40 mg 09/27/20 09:00 09/28/20 08:41 Atorvastatin Calcium 40 Mg Tablet PO 40 mg DAILY TOMMIE Administration Colchicine 0.6 mg 09/27/20 11:30 09/28/20 08:41 Colchicine 0.6 Mg Tablet PO 0.6 mg BID TOMMIE Administration Hydrochlorothiazide 12.5 mg 09/27/20 09:00 09/28/20 08:41 Hydrochlorothiazide 12.5 Mg Tablet PO 12.5 mg DAILY TOMMIE Administration Protocol Levothyroxine Sodium 100 mcg 09/27/20 06:30 09/28/20 06:18 Levothyroxine Sodium 100 Mcg Tablet PO 100 mcg DAILY@0630 TOMMIE Administration Losartan Potassium 100 mg 09/27/20 09:00 09/28/20 08:41 Losartan Potassium 50 Mg Tablet PO 100 mg DAILY TOMMIE Administration Protocol Multivitamins/Minerals 1 tab 09/27/20 09:00 09/28/20 08:41 Vits A,C,E/Lutein/Minerals Tablet PO 1 tab DAILY TOMMIE Administration Sodium Chloride 3 ml 09/27/20 00:00 09/28/20 08:42 0.9 % Sodium Chloride Flush 3 Ml Syringe IVFLUSH 3 ml QSHIFT TOMMIE Administration Venlafaxine HCl 37.5 mg 09/27/20 09:00 09/28/20 08:41 Venlafaxine Hcl Er 37.5 Mg Cap.Er.24h PO 37.5 mg DAILY TOMMIE Administration Time Spent With Patient Time: Total time spent is greater than 50% in coordination of care (as documented) at patient's floor/unit and/or counseling patient: Time with patient: 15 - 24 minutes Progress Note: Quality Stroke Does the patient have a stroke diagnosis?: No Procedures Date of Service Date of Service: 09/28/20
--- NOTE | 2020-09-28 12:32 | MHC.CM.PN ---
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
[2020-09-29 03:37] LABS: HBc Num1 0.06 S/CO (0.00-0.79); HBsAGNum1 0.19 S/CO (0.00-0.99); Hepatitis B Core Antibody Nonreactive (Nonreactive); Hepatitis B Surface Antigen Negative (Negative); ~Hepatitis C Antibody Nonreactive (Nonreactive)
[2020-09-29 03:44] LABS: HBS Num1 104.54 mIU/mL (0-7.99); HIV AB/AG Nonreactive (Nonreactive); HIV Num 1 0.08 S/CO (0.00-0.99); ~Hepatitis B Surface Antibody REACTIVE (Nonreactive)
[2020-10-02 16:52] LABS: Parvovirus B19 IgG 6.49; Parvovirus B19 IgM <0.9
== END 2020-09-28 12:50 | disposition home or self-care (01) ==
LOC: HO.ED 19:29 → HO.S3 09-27 03:10
PROVIDERS: Emergency Medicine; Internal Medicine; Admitting Provider Hospitalist; Emergency Provider Internal Medicine; PCP Family Medicine; Visit Provider Hospitalist
DX: R07.1 Chest pain on breathing (principal); R77.8 Other specified abnormalities of plasma proteins; I77.6 Arteritis, unspecified; I31.3 Pericardial effusion (noninflammatory); R63.0 Anorexia; R50.9 Fever, unspecified; R53.83 Other fatigue; G47.33 Obstructive sleep apnea (adult) (pediatric); E78.5 Hyperlipidemia, unspecified; E06.3 Autoimmune thyroiditis; I10 Essential (primary) hypertension; F32.9 Major depressive disorder, single episode, unspecified; Z68.29 Body mass index [BMI] 29.0-29.9, adult; Z20.822 Contact with and (suspected) exposure to COVID-19; Z95.0 Presence of cardiac pacemaker; Z90.13 Acquired absence of bilateral breasts and nipples; Z42.1 Encounter for breast reconstruction following mastectomy; Z88.1 Allergy status to other antibiotic agents; Z88.8 Allergy status to other drugs, medicaments and biological substances; Z79.899 Other long term (current) drug therapy
CPT/HCPCS: 36415; 71045; 71275; 80048; 80076; 81001; 81003; 83605; 83735; 84484; 85025; 85652; 86140; 86704; 86706; 86747; 86803; 87040; 87340; 87389; 87633; 87635; 93005; 93308; 99218; 99285; Q9967

== ENCOUNTER → 2020-10-09 15:08 | Outpatient (BNVA) | payer MEDICARE, SELFPAY | PROVIDERS: PCP Family Medicine; Visit Provider Nurse Practitioner Family | DX: I31.9 Disease of pericardium, unspecified (principal); I44.1 Atrioventricular block, second degree; R00.1 Bradycardia, unspecified; I10 Essential (primary) hypertension; E78.5 Hyperlipidemia, unspecified; R06.00 Dyspnea, unspecified; E03.9 Hypothyroidism, unspecified; G47.33 Obstructive sleep apnea (adult) (pediatric); F32.9 Major depressive disorder, single episode, unspecified; Z95.0 Presence of cardiac pacemaker; Z85.3 Personal history of malignant neoplasm of breast; Z90.13 Acquired absence of bilateral breasts and nipples; Z42.1 Encounter for breast reconstruction following mastectomy | CPT/HCPCS: 99212 ==

== ENCOUNTER → 2020-10-14 09:21 | Outpatient (REF) | payer MEDICARE, SELFPAY ==
--- NOTE | ~2020-10-14 | NM_ITS ---
Lexiscan Myocardial perfusion study Indication: Chest pain, assess for coronary disease and ischemia Technique: The patient was brought in for a Lexiscan perfusion study on 10/14/2020 and was injected 0.4 mg of Lexiscan intravenously. Within a minute of this injection 25 mCi of sestamibi was given intravenously. Images were obtained using the SPECT gamma camera interlaced with the gating device. Images were obtained in supine position. Resting perfusion study was performed on 10/16/2020. Patient was administered 25 mCi of sestamibi intravenously at rest. Images were then obtained in supine position. Total DLP 139mGy-cm. Images were processed with the software and compared side to side in short axis, horizontal long axis and vertical long axis views. Findings: Raw acquisition was reviewed. Arms by the patient's side. The stress perfusion study showed no significant perfusion abnormality. Both uncorrected as well as CT attenuation corrected images were reviewed. The gated study shows normal LV systolic function with calculated LVEF of 55%. LV cavity is normal in size. The gated study shows normal wall thickening and contraction of segments. Resting study shows no significant perfusion abnormality. Gating at rest reveals normal wall motion with ejection fraction at 53%. The findings are consistent with no reversible or fixed perfusion abnormality. NM/NM willie perf SPECT rest & str Impression: 1. Myocardial perfusion imaging study shows normal myocardial perfusion. No evidence of any ischemia or infarction. 2. Gated LVEF is 55% during stress and 53% during rest. 3. Transient ischemic dilatation not present. EKG component of the test reported separately.
--- NOTE | 2020-10-14 09:15 | CA_ITS ---
Acquisition Time: 2020-10-14 09:31:38 Total Exercise Time: 00:02:00 Test Indications: SOB, BRADYCARDIA Medications: SEE CHART Protocol: LEXISCAN Max HR: 082 BPM 54% of Pred: 151 BPM Max BP: 116/062 mmHG Max Work Load: 1.0 METS Pharmacological stress test using Lexiscan while sitting. Pt tolerated well, reports mild chest pain 1/10 that resolves in recovery. EKG with paced beets no arrhythmias, non-diagnostic for ischemia. Nuclear images to follow. Normotensive response to test. Test reviewed with Dr. Ruiz. Referred By: Loi Dorsey Overread By: Freida Escalona NP
== END ==
LOC: HO.CARD 09:21
PROVIDERS: PCP Family Medicine; Visit Provider Internal Medicine Cardiovascular Disease
DX: R06.00 Dyspnea, unspecified (principal)
CPT/HCPCS: 78452; 93017; A9500; J0280; J2785

== ENCOUNTER → 2020-11-10 13:57 | Outpatient (BNVA) | payer MEDICARE, SELFPAY | PROVIDERS: PCP Family Medicine; Visit Provider Nurse Practitioner Family | DX: I31.9 Disease of pericardium, unspecified (principal); I44.1 Atrioventricular block, second degree; R00.1 Bradycardia, unspecified; Z95.0 Presence of cardiac pacemaker | CPT/HCPCS: 99212 ==

== ENCOUNTER → 2020-12-15 14:56 | Outpatient (BNVA) | payer MEDICARE, SELFPAY | PROVIDERS: PCP Family Medicine; Visit Provider Internal Medicine Cardiovascular Disease ==

== ENCOUNTER → 2021-02-11 13:03 | Outpatient (BNVA) | payer MEDICARE, SELFPAY | PROVIDERS: PCP Family Medicine; Visit Provider Internal Medicine Cardiovascular Disease | DX: R00.2 Palpitations (principal); R06.00 Dyspnea, unspecified; I10 Essential (primary) hypertension; E78.5 Hyperlipidemia, unspecified; E03.9 Hypothyroidism, unspecified; Z95.0 Presence of cardiac pacemaker; Z85.3 Personal history of malignant neoplasm of breast; Z90.13 Acquired absence of bilateral breasts and nipples; Z42.1 Encounter for breast reconstruction following mastectomy; Z88.1 Allergy status to other antibiotic agents; Z88.0 Allergy status to penicillin; Z88.8 Allergy status to other drugs, medicaments and biological substances; Z79.899 Other long term (current) drug therapy | CPT/HCPCS: 93005; 99212 ==

== ENCOUNTER → 2021-03-30 14:06 | Outpatient (REF) | payer MEDICARE, SELFPAY ==
--- NOTE | 2021-03-30 14:09 | CA_ITS ---
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 - E/E prime ratio is between 8 and 15 consistent with indeterminate filling pressures. There is severe septal asymmetric hypertrophy. - Normal right ventricular cavity size and systolic function. - There is no significant valvular or pericardial pathology. Findings Left Ventricle Normal left ventricular size and systolic function. There is mildly increased left ventricular wall thickness. The visually estimated ejection fraction is between 60-65%. There is no evidence of regional wall motion abnormalities. Abnormal diastolic function is noted. Spectral Doppler is indicative of an impaired relaxation filling pattern. E/E prime ratio is between 8 and 15 consistent with indeterminate filling pressures. There is severe septal asymmetric hypertrophy. Right Ventricle Normal right ventricular cavity size and systolic function. Atria Both atria are normal in size. Aortic Valve Normal aortic valve structure and function. There is no aortic valve stenosis. There is no aortic valve regurgitation. Mitral Valve Normal mitral valve structure and function. There is no mitral valve regurgitation. There is no mitral valve stenosis. Pulmonic Valve Normal pulmonic valve structure and function. There is trace pulmonic valve regurgitation. Tricuspid Valve Normal tricuspid valve structure and function. There is trace tricuspid valve regurgitation. Normal right atrial pressure. There is no evidence of pulmonary hypertension. Great Vessels There is mild dilatation of the ascending aorta measuring 3.40 cm. The visualized portions of the pulmonary artery and branches are normal. Venous The inferior vena cava is normal in size and collapses greater than 50% with inspiration. Pericardium/Pleural Normal pericardial structure. There is no evidence of pericardial effusion. Prior Study Comparison No significant change compared to prior study dated: 09/27/2020. Measurements 2D Linear Measurements IVSd: 1.40 0.6-0.9/0.6-1.0 cm LVIDd: 4.00 3.9-5.3/4.2-5.9 cm LVIDd Index: 2.25 2.4-3.2/2.2-3.1 cm/m2 LVIDs: 2.76 2.0-3.6 cm LVPWd: 1.15 0.7-1.1 cm Ao Root: 2.60 2.1-3.5 cm LA Diam: 3.80 2.7-3.8/3.0-4.0 cm LAIDs Index: 2.13 1.5-2.3 cm/m2 LV Mass: 225.69 67-162/88-224 g LV Mass Index: 126.79 43-95/49-115 g/m2 LVOT Diam: 2.00 3.0+(-)1.3 cm 2D Systolic Function EF 4C: 58.90 >55% EF 2C: 58.90 >55% EF BiP: 57.10 >55% Mitral Valve MV Pk E: 0.59 MV PK A: 0.82 MV Decel Time: 233.00 E/A: 0.70 E'Lateral: 8.26 E'Medial: 6.10 E/E' Med: 9.70 E/E' Lat: 7.20 PHT: 68.00 MVA PHT: 3.24 Decel Gem: 2.57 Aortic Valve AoV Pk Rudolph: 1.36 AoV Mn Rudolph: 1.10 AoV VTI: 0.29 AoV Pk Grad: 7.00 Aov Mn Grad: 5.00 VALERIE Cont.VTI: 2.72 LVOT LVOT Pk Rudolph: 1.27 LVOT Mn Rudolph: 0.82 LVOT VTI: 0.25 LVOT Pk Grad: 6.00 LVOT Mn Grad: 3.00 LVOT Diam: 2.00 LVOT Area: 3.14 Diastolic Function MV Pk E: 0.59 MV Pk A: 0.82 E/A: 0.70 E'Medial: 6.10 E/E' Med: 9.70 E' Laterial: 8.26 E/E' Lat: 7.20 Right Ventricle TAPSE (mm): 22.40 TVS' Rudolph: 15.40 Tricuspid Valve TR Pk Rudolph: 1.83 TR Pk Grad: 13.00 RA Press: 3.00 RVSP: 16.00 Great Vessels Aorta Ao Root-2D: 2.60 2.0-3.7 cm Ao Asc: 3.40 2.1-3.4 cm Ao Arch: 2.60 Updated in Other Vendor System with Status of Final Loi Dorsey MD electronically signed on 03/30/2021 8:53:12 PM with status of Final
--- NOTE | 2021-03-30 14:09 | HM_ITS ---
Total monitoring time 3 days. Underlying rhythm is sinus. Average 64/Min. Minimum 60/Min. Maximum 114/Min. No atrial fibrillation or flutter or pauses or AV blocks. Rare supraventricular ectopy with minimal burden. No patient events. MTDD
== END ==
LOC: HO.CARD 14:06
PROVIDERS: PCP Psychiatry & Neurology Psychiatry; Visit Provider Internal Medicine Cardiovascular Disease
DX: R06.00 Dyspnea, unspecified (principal)
CPT/HCPCS: 93242; 93306

== ENCOUNTER → 2021-08-17 14:49 | Outpatient (BNVA) | payer MEDICARE, SELFPAY | PROVIDERS: PCP Psychiatry & Neurology Psychiatry; Visit Provider Internal Medicine Cardiovascular Disease | DX: R06.00 Dyspnea, unspecified (principal) | CPT/HCPCS: 99212 ==

== ENCOUNTER 2021-09-21 10:49 | Outpatient (REF) | payer MEDICARE, SELFPAY ==
--- NOTE | 2021-09-21 12:57 | PFT_ITS ---
Forced vital capacity 89%, FEV1 97%, FEV1/FVC ratio is 82, [id number] 123%, and MVV 93%. Post bronchodilator therapy, there is no significant change. Total lung capacity 95%. Residual volume 93%. Diffusion capacity 86% CONCLUSION: Normal pulmonary function test, and there is no evidence of obstructive or restrictive pulmonary disorder. MD JACOB Lauren/DAJAL / [id number]
== END 2021-09-21 10:50 | disposition home or self-care (01) ==
LOC: HO.RESP 10:49
PROVIDERS: PCP Family Medicine; Visit Provider Internal Medicine Cardiovascular Disease
DX: R06.00 Dyspnea, unspecified (principal)
CPT/HCPCS: 94060; 94727; 94729

== ENCOUNTER → 2021-11-30 13:02 | Outpatient (BNVA) | payer MEDICARE, SELFPAY | PROVIDERS: PCP Family Medicine; Visit Provider Internal Medicine Cardiovascular Disease | DX: R06.00 Dyspnea, unspecified (principal) | CPT/HCPCS: 93005; 99212 ==

== ENCOUNTER → 2022-04-22 09:51 | Outpatient (BNVA) | payer MEDICARE, SELFPAY | PROVIDERS: PCP Family Medicine; Visit Provider Internal Medicine Cardiovascular Disease | DX: R06.00 Dyspnea, unspecified (principal); Z95.0 Presence of cardiac pacemaker | CPT/HCPCS: 99212 ==

== ENCOUNTER → 2022-05-04 13:06 | Outpatient (REF) | payer MEDICARE, SELFPAY ==
--- NOTE | 2022-05-04 13:09 | CA_ITS ---
Transthoracic Echocardiogram Patient (Last, First, Middle): Ama Sarmiento, Gender: Female Date of : 1950 Age: 71 Procedure Date: 05/04/2022 Procedure Type: Transthoracic Echocardiogram Location: OP Height: 160.02 cm Weight: 79.38 kg BSA: 1.83 m2 Heart Rate: bpm BP: 120 / 70 mmHg Director Of Business Operations: JULIETA Gil MD: Loi Dorsey MD Pug Mill Operator: Loi Dorsey MD Symptoms: R06.00 - Dyspnea, unspecified Study Quality: Fair Conclusions: - Normal left ventricular size and systolic function. There is mildly increased left ventricular wall thickness. The visually estimated ejection fraction is between 55-60%. - Normal right ventricular cavity size and systolic function. Findings Left Ventricle Normal left ventricular size and systolic function. There is mildly increased left ventricular wall thickness. The visually estimated ejection fraction is between 55-60%. There is no evidence of regional wall motion abnormalities. Diastolic function is indeterminate on the basis of available data. There is severe septal asymmetric hypertrophy. Right Ventricle Normal right ventricular cavity size and systolic function. Atria The left atrium is normal in size. The right atrium is normal in size. Aortic Valve Normal aortic valve structure and function. There is no aortic valve stenosis. There is no aortic valve regurgitation. Mitral Valve Normal mitral valve structure and function. There is no mitral valve regurgitation. There is no mitral valve stenosis. Pulmonic Valve The pulmonic valve is likely normal. Tricuspid Valve Normal tricuspid valve structure and function. Normal right atrial pressure. There is no evidence of pulmonary hypertension. Great Vessels All visible segments of the aorta are normal in size. The visualized portions of the pulmonary artery and branches are normal. Venous The inferior vena cava is normal in size and collapses greater than 50% with inspiration. Pericardium/Pleural There is no evidence of pericardial effusion. Prior Study Comparison No significant change compared to prior study dated: 03/30/2021. Measurements 2D Linear Measurements IVSd: 1.47 0.6-0.9/0.6-1.0 cm LVIDd: 3.91 3.9-5.3/4.2-5.9 cm LVIDd Index: 2.14 2.4-3.2/2.2-3.1 cm/m2 LVIDs: 2.54 2.0-3.6 cm LVPWd: 1.10 0.7-1.1 cm LA Diam: 3.40 2.7-3.8/3.0-4.0 cm LAIDs Index: 1.86 1.5-2.3 cm/m2 LV Mass: 220.81 67-162/88-224 g LV Mass Index: 120.66 43-95/49-115 g/m2 LVOT Diam: 1.70 3.0+(-)1.3 cm 2D Systolic Function EF 4C: 54.70 >55% EF 2C: 60.60 >55% EF BiP: 59.40 >55% Mitral Valve MV Pk E: 0.53 MV PK A: 0.67 MV Decel Time: 213.00 E/A: 0.80 E'Lateral: 4.32 E'Medial: 4.04 E/E' Med: 13.00 E/E' Lat: 12.20 PHT: 62.00 MVA PHT: 3.55 Decel Attala: 2.47 Aortic Valve AoV Pk Rudolph: 1.34 AoV Mn Rudolph: 0.93 AoV VTI: 0.25 AoV Pk Grad: 7.00 Aov Mn Grad: 4.00 VALERIE Cont.VTI: 2.00 LVOT LVOT Pk Rudolph: 1.11 LVOT Mn Rudolph: 0.78 LVOT VTI: 0.22 LVOT Pk Grad: 5.00 LVOT Mn Grad: 3.00 LVOT Diam: 1.70 LVOT Area: 2.27 Diastolic Function MV Pk E: 0.53 MV Pk A: 0.67 E/A: 0.80 E'Medial: 4.04 E/E' Med: 13.00 E' Laterial: 4.32 E/E' Lat: 12.20 Right Ventricle TAPSE (mm): 15.20 TVS' Rudolph: 11.10 Tricuspid Valve TR Pk Rudolph: 1.65 TR Pk Grad: 11.00 RA Press: 3.00 RVSP: 14.00 Great Vessels Aorta Sinus of Valsalva: 2.80 2.0-3.5 cm Ao Asc: 3.20 2.1-3.4 cm Pulmonary Valve PV Pk Rudolph: 0.83 Peak PV Grad: 3.00 Updated in Other Vendor System with Status of Final Loi Dorsey MD electronically signed on 05/04/2022 8:19:04 PM with status of Final
== END ==
LOC: HO.CARD 13:06
PROVIDERS: PCP Family Medicine; Visit Provider Internal Medicine Cardiovascular Disease
DX: R06.00 Dyspnea, unspecified (principal)
CPT/HCPCS: 93306

== ENCOUNTER 2022-10-25 13:04 | Outpatient (AMB) | payer MEDICARE, SELFPAY ==
[2022-10-25 13:07] VITALS: BP 122/76; PULSE 60; O2SAT 97; BMI 29.9
--- NOTE | 2022-10-25 13:07 | A.OFFVIS_ITS ---
Intake Vital Signs 10/25/22 13:07 Height 5 ft 3 in Weight 168 lb 13.985 oz BMI 29.9 BP 122/76 Blood Pressure Location Rt brachial Position Sitting Pulse 60 Pulse Source Pulse Oximeter Pulse Oximetry (%) 97 Oxygen Delivery Method Room Air Intake Visit Reasons: 6M follow up Intake Note: Patient is here for a 6 month follow up Allergies amoxicillin [Amoxicillin] Allergy (Intermediate, Verified 10/25/22 13:11) HIVES/RASH/LIP SWELLING lisinopril Adverse Reaction (Intermediate, Verified 10/25/22 13:11) Cough Medication List - Last Reconciled 10/25/22 by Loi Dorsey MD ascorbic acid (vitamin C) (Vitamin C) 500 mg PO BID atorvastatin 40 mg PO DAILY calcium carbonate (Calcium 500) 500 mg PO DAILY coenzyme Q10 (CoQ-10) 100 mg PO BID hydrochlorothiazide 1 cap PO DAILY levothyroxine 100 mcg PO DAILY losartan 100 mg PO DAILY magnesium citrate 250 mg PO DAILY venlafaxine ER 37.5 mg PO DAILY vit C,Q-En-vnole-lutein-zeaxan 250-90-40-1 mg (PreserVision AREDS-2) 1 tab PO BID vitamin B complex (B Complex-Vitamin B12 tablet) 1 tab PO DAILY HPI HPI Comments History of Present Illness Details Pleasant 71 year female here for follow-up. 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 She presented soon after pacemaker placement with pleuritic chest pain was noticed to have small pericardial effusion. This was monitored and apparently she had repeat echocardiography with Dr. Fischer where the pericardial effusion did not increase in size. She was started on colchicine and after some weeks she stopped the colchicine but developed chest pain again. She was started on colchicine with improvement in her chest pains. She has persistent dyspnea on exertion. She was referred to PFTs which were normal. She is saying she started exercising and after 3 days of brisk walk she felt that her breathing was better than before. No chest discomfort. Her only complaint is fatigue. She has been V-paced 100% on the pacemaker. She had repeat echocardiography performed which showed normal biventricular functi on. 10/25/2022: She is here for 6 months follow-up. She is saying she is feeling great in the last couple of months. She has no shortness of breath. She has been active. No chest pains. Blood pressure control is good. She is asking water pacemaker life as she is paced all the time. So for battery life is 11.1 years based on interrogation from August 2022. [facility] Medical History Bradycardia Breast CA Depression Dyspnea on exertion HLD (hyperlipidemia) HTN (hypertension) Hypothyroidism Lymphedema Melanoma CASSIE (obstructive sleep apnea) Pacemaker Surgical History History of bilateral mastectomy Hx of colonoscopy Status post bilateral breast reconstruction Family History Mother Congestive heart failure Heart attack Father Peripheral artery disease Social History Household Members: Spouse Housing: House Do you presently have visiting nurse or other home services: No Alcohol intake: never Patient Tobacco Use Status: Former Tobacco user Quit Date: 30 yrs ago Tobacco use type: Cigarette Years Smoked: 10 +/- on and off Advance Directives Date on File: 09/23/20 service: No Current occupational status: employed Review of Systems Const Denies fatigue, Denies fever(s), Denies frequent falls, Denies weight gain and Denies weight loss ENT Denies dizziness Card Denies chest pain, Denies leg edema, Denies lightheadedness, Denies dyspnea, Denies dyspnea on exertion, Denies orthopnea and Reports other (loss of consciousness) Resp Denies cough, Denies dyspnea and Denies dyspnea on exertion GI Denies hematochezia and Denies change in bowel habits Musc Denies abnormal gait, Denies muscle weakness, Denies numbness, Denies radiating pain into limb and Denies tingling Neuro Denies abnormal gait, Denies dizziness, Denies frequent falls, Denies numbness and Denies tingling Endo Denies fatigue Physical Exam Vital Signs: Last Vital Signs Pulse 60 10/25/22 13:07 BP 122/76 10/25/22 13:07 Pulse Ox 97 10/25/22 13:07 Oxygen Delivery Method Room Air 10/25/22 13:07 BMI result Body Mass Index 29.9 GENERAL APPEARANCE: in no acute distress, pleasant. NECK: no carotid bruit, no jugular venous distention. SKIN: no suspicious lesions, warm and dry. HEART: no murmurs, regular rate and rhythm. LUNGS: clear to auscultation bilaterally. ABDOMEN: soft, nontender. EXTREMITIES: no edema. PERIPHERAL PULSES: equal. NEUROLOGIC: No gross deficits, AAO X 3 Office Procedures EKG Details: Atrial paced rhythm 60 beats per minute, will 248, right bundle-branch block, left ventricular hypertrophy, QTC 494 milliseconds. [id number], Complete Assessment & Plan Assessment & Plan (1) SAVAGE (dyspnea on exertion): Code(s): R06.00 - Dyspnea, unspecified (2) Status post cardiac pacemaker procedure: Comment: Medtronic Dual Chamber Code(s): Z95.0 - Presence of cardiac pacemaker Plan Pleasant 72 year female background of symptomatic bradycardia for which she had pacemaker placement. She was V paced 100% her time and echocardiography was performed which showed normal biventricular function. On follow-up she is atrial paced V sensed with right bundle-branch block. She is saying in the last 2 months and breathing has changed significantly. Previously she was complaining of significant shortness of breath for the last 2 months breathing has improved significantly and she is quite active at this point without any exertional symptoms. Blood pressure control is good. She will see us back in 6 months. Thank you for allowing me to participate in the care of your patient. Please feel free to contact me if you have any questions. Coding Level of Care Code Est Pt Level 4 (58798) Diagnoses SAVAGE (dyspnea on exertion) R06.00 Status post cardiac pacemaker procedure Z95.0 CPT Codes EKG - CPT: 39457-[id number], Complete ([id number])
== END 2022-10-25 13:31 | disposition home or self-care (01) ==
PROVIDERS: Visit Provider Internal Medicine Cardiovascular Disease
DX: R06.00 Dyspnea, unspecified (principal); Z95.0 Presence of cardiac pacemaker
CPT/HCPCS: 93010; 99214

== ENCOUNTER → 2022-10-25 13:04 | Outpatient (BNVA) | payer MEDICARE, SELFPAY | PROVIDERS: Visit Provider Internal Medicine Cardiovascular Disease | DX: R06.00 Dyspnea, unspecified (principal); Z95.0 Presence of cardiac pacemaker | CPT/HCPCS: 93005; 99212 ==

== ENCOUNTER → 2022-11-05 23:59 | Outpatient (BNV) | payer MEDICARE, SELFPAY ==
--- NOTE | 2022-12-08 12:17 | MHC.OFFVIS ---
Intake Intake Visit Reasons: Remote Device Check- Medtronic Allergies amoxicillin [Amoxicillin] Allergy (Intermediate, Verified 10/25/22 13:11) HIVES/RASH/LIP SWELLING lisinopril Adverse Reaction (Intermediate, Verified 10/25/22 13:11) Cough PFSH Medical History Bradycardia Breast CA Depression Dyspnea on exertion HLD (hyperlipidemia) HTN (hypertension) Hypothyroidism Lymphedema Melanoma CASSIE (obstructive sleep apnea) Pacemaker Surgical History History of bilateral mastectomy Hx of colonoscopy Status post bilateral breast reconstruction Family History Mother Congestive heart failure Heart attack Father Peripheral artery disease Social History Household Members: Spouse Housing: House Do you presently have visiting nurse or other home services: No Alcohol intake: never Patient Tobacco Use Status: Former Tobacco user Quit Date: 30 yrs ago Tobacco use type: Cigarette Years Smoked: 10 +/- on and off Advance Directives Date on File: 09/23/20 service: No Current occupational status: employed Office Procedures Cardiac Device Check Cardiac Device Check Details: Medtronic pacemaker. Battery life 10.8 years. Ventricular paced 39%. Atrial pacing 84%. No new alerts. [id number] Cardiac Device Interrogation, pacemaker Procedure code (CPT) selection complete Assessment & Plan Assessment & Plan (1) Status post cardiac pacemaker procedure: Comment: Medtronic Dual Chamber Code(s): Z95.0 - Presence of cardiac pacemaker Coding Level of Care Code Procedure Only Diagnoses Status post cardiac pacemaker procedure Z95.0 CPT Codes Cardiac Device Check - Cardiac Device 12: [id number] Cardiac Device Interrogation, pacemaker ([id number])
== END ==
PROVIDERS: Visit Provider Internal Medicine Cardiovascular Disease
DX: I44.1 Atrioventricular block, second degree (principal); Z95.0 Presence of cardiac pacemaker
CPT/HCPCS: 93294

== ENCOUNTER → 2023-02-04 23:59 | Outpatient (BNV) | payer MEDICARE, SELFPAY ==
--- NOTE | 2023-02-18 16:05 | MHC.OFFVIS ---
Intake Intake Visit Reasons: Remote Device Check- Medtronic Allergies amoxicillin [Amoxicillin] Allergy (Intermediate, Verified 10/25/22 13:11) HIVES/RASH/LIP SWELLING lisinopril Adverse Reaction (Intermediate, Verified 10/25/22 13:11) Cough PFSH Medical History Bradycardia Pacemaker Dyspnea on exertion Depression Lymphedema Melanoma CASSIE (obstructive sleep apnea) Hypothyroidism Breast CA HLD (hyperlipidemia) HTN (hypertension) Surgical History History of permanent cardiac pacemaker placement Hx of appendectomy Status post bilateral breast reconstruction Hx of colonoscopy History of bilateral mastectomy Family History Mother Congestive heart failure Heart attack Father Peripheral artery disease Social History Household Members: Spouse Housing: House Do you presently have visiting nurse or other home services: No Alcohol intake: never Patient Tobacco Use Status: Former Tobacco user Quit Date: 30 yrs ago Tobacco use type: Cigarette Years Smoked: 10 +/- on and off Substance Use Frequency: Occasionally Have you been hit, kicked, punched, or otherwise hurt by someone within the past year? If so, by whom?: No Are you DNR?: No Advance Directives: No Advance Directives Information Provided: Yes Advance Directives Date on File: 09/23/20 Recently lost weight without trying: No Eating poorly because of decreased appetite: No Nutrition Risks: No Nutritional Risk Patient : No service: No Current occupational status: employed Office Procedures Cardiac Device Check Cardiac Device Check Details: Medtronic PPM Good battery life. No new alerts. 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
== END ==
PROVIDERS: PCP Family Medicine; Visit Provider Internal Medicine Cardiovascular Disease
DX: R00.1 Bradycardia, unspecified (principal); Z95.0 Presence of cardiac pacemaker
CPT/HCPCS: 93294

== ENCOUNTER 2023-02-09 08:30 | Day surgery (SDC) | payer MEDICARE, SELFPAY ==
[2023-02-07 09:47] VITALS: BMI 30.5
--- NOTE | 2023-02-08 10:09 | P.CONAN_ITS ---
Documented by User: Sandie Parra NP 02/08/23 10:12 HPI - Anesthesia Eval Consult details Narrative: 72yo F for Colonoscopy Pacer in situ for 2:1 AV block Follows [facility] cardiology. Last OV 10/2022 without any issues or changes in treatment [facility] Active Problems Active Problems: All Active Problems (Updated 08/17/21 @ 15:16 by Loi Dorsey MD) SAVAGE (dyspnea on exertion) (Acute) Palpitations (Acute) Dyspnea (Acute) Pericarditis (Acute) Aortitis (Acute) Elevated troponin (Acute) Status post cardiac pacemaker procedure (Acute) Mobitz type 2 second degree heart block (Acute) Symptomatic bradycardia (Acute) Dyspnea on exertion (Acute) Depression (Acute) Status post bilateral breast reconstruction (Acute) Melanoma (Acute) Past Medical History Medical History Bradycardia Pacemaker Dyspnea on exertion Depression Lymphedema Melanoma CASSIE (obstructive sleep apnea) Hypothyroidism Breast CA HLD (hyperlipidemia) HTN (hypertension) Family History Family History Mother Congestive heart failure Heart attack Father Peripheral artery disease Family history of problems with anesthesia: No Surgical History Surgical History History of permanent cardiac pacemaker placement Hx of appendectomy Status post bilateral breast reconstruction Hx of colonoscopy History of bilateral mastectomy History of Problems with Anesthesia: Yes Social History Social History Household Members: Spouse Housing: House Do you presently have visiting nurse or other home services: No Alcohol intake: never Patient Tobacco Use Status: Former Tobacco user Quit Date: 30 yrs ago Tobacco use type: Cigarette Years Smoked: 10 +/- on and off Substance Use Frequency: Occasionally Have you been hit, kicked, punched, or otherwise hurt by someone within the past year? If so, by whom?: No Are you DNR?: No Advance Directives: No Advance Directives Information Provided: Yes Advance Directives Date on File: 09/23/20 Recently lost weight without trying: No Eating poorly because of decreased appetite: No Nutrition Risks: No Nutritional Risk Patient : No service: No Current occupational status: employed Meds Allergies Allergy/AdvReac Type Severity Reaction Status Date / Time amoxicillin [Amoxicillin] Allergy Intermediate HIVES/RASH/LIP Verified 10/25/22 13:11 SWELLING lisinopril AdvReac Intermediate Cough Verified 10/25/22 13:11 Home Medications Medication Instructions Recorded Confirmed Last Taken Type hydrochlorothiazide 12.5 mg capsule 1 cap PO DAILY 09/23/20 02/07/23 09/22/20 History calcium carbonate 500 mg calcium 500 mg PO DAILY 02/11/21 02/07/23 Unknown History (1,250 mg) tablet (Calcium 500) vitamin B complex (B 1 tab PO DAILY 02/11/21 02/07/23 Unknown History Complex-Vitamin B12 tablet) ascorbic acid (vitamin C) 500 mg 500 mg PO BID 08/17/21 02/07/23 Unknown History tablet (Vitamin C) atorvastatin 40 mg tablet 40 mg PO DAILY 08/17/21 02/07/23 Unknown History coenzyme Q10 100 mg capsule 100 mg PO BID 08/17/21 02/07/23 Unknown History (CoQ-10) losartan 100 mg tablet 100 mg PO DAILY 08/17/21 02/07/23 Unknown History magnesium citrate 125 mg capsule 250 mg PO DAILY 08/17/21 02/07/23 Unknown History venlafaxine 37.5 mg 37.5 mg PO DAILY 08/17/21 02/07/23 Unknown History capsule,extended release 24 hr vit C 250 mg-vit E 90 mg-zinc 40 1 tab PO BID 08/17/21 02/07/23 Unknown History mg-copper 1 ap-orjckx-zuazja capsule (PreserVision AREDS-2) levothyroxine 112 mcg tablet 112 mcg PO DAILY 02/07/23 02/07/23 Unknown History Exam Exam Date and Time: February 08, 2023 1009 Height,Weight and Vital Signs: Height 5 ft 3 in Weight 78.018 kg Narrative Narrative: EKG 10/2022 Atrial paced rhythm 60 beats per minute, will 248, right bundle-branch block, left ventricular hypertrophy, QTC 494 milliseconds Cardiac Device Check 12/2022 Details: Medtronic pacemaker. Battery life 10.8 years. Ventricular paced 39%. Atrial pacing 84%. No new alerts. Assessment and Plan Assessment Anesthesia Assessment: Chart Reviewed Final Anesthetic Review Family History of Problems with Anesthesia: No History of Problems with Anesthesia: Yes Documented by User: Josiah Dee MD 02/09/23 09:32 PMFSH Past Medical History Medical History Bradycardia Pacemaker Dyspnea on exertion Depression Lymphedema Melanoma CASSIE (obstructive sleep apnea) Hypothyroidism Breast CA HLD (hyperlipidemia) HTN (hypertension) Family History Family History Mother Congestive heart failure Heart attack Father Peripheral artery disease Surgical History Surgical History History of permanent cardiac pacemaker placement Hx of appendectomy Status post bilateral breast reconstruction Hx of colonoscopy History of bilateral mastectomy Social History Social History Household Members: Spouse Housing: House Do you presently have visiting nurse or other home services: No Alcohol intake: never Patient Tobacco Use Status: Former Tobacco user Quit Date: 30 yrs ago Tobacco use type: Cigarette Years Smoked: 10 +/- on and off Substance Use Frequency: Occasionally Have you been hit, kicked, punched, or otherwise hurt by someone within the past year? If so, by whom?: No Are you DNR?: No Advance Directives: No Advance Directives Information Provided: Yes Advance Directives Date on File: 09/23/20 Recently lost weight without trying: No Eating poorly because of decreased appetite: No Nutrition Risks: No Nutritional Risk Patient : No service: No Current occupational status: employed Meds Allergies Allergy/AdvReac Type Severity Reaction Status Date / Time amoxicillin [Amoxicillin] Allergy Intermediate HIVES/RASH/LIP Verified 10/25/22 13:11 SWELLING lisinopril AdvReac Intermediate Cough Verified 10/25/22 13:11 Home Medications Medication Instructions Recorded Confirmed Last Taken Type hydrochlorothiazide 12.5 mg capsule 1 cap PO DAILY 09/23/20 02/07/23 09/22/20 History calcium carbonate 500 mg calcium 500 mg PO DAILY 02/11/21 02/07/23 Unknown History (1,250 mg) tablet (Calcium 500) vitamin B complex (B 1 tab PO DAILY 02/11/21 02/07/23 Unknown History Complex-Vitamin B12 tablet) ascorbic acid (vitamin C) 500 mg 500 mg PO BID 08/17/21 02/07/23 Unknown History tablet (Vitamin C) atorvastatin 40 mg tablet 40 mg PO DAILY 08/17/21 02/07/23 Unknown History coenzyme Q10 100 mg capsule 100 mg PO BID 08/17/21 02/07/23 Unknown History (CoQ-10) losartan 100 mg tablet 100 mg PO DAILY 08/17/21 02/07/23 Unknown History magnesium citrate 125 mg capsule 250 mg PO DAILY 08/17/21 02/07/23 Unknown History venlafaxine 37.5 mg 37.5 mg PO DAILY 08/17/21 02/07/23 Unknown History capsule,extended release 24 hr vit C 250 mg-vit E 90 mg-zinc 40 1 tab PO BID 08/17/21 02/07/23 Unknown History mg-copper 1 gs-drcuqh-mycafg capsule (PreserVision AREDS-2) levothyroxine 112 mcg tablet 112 mcg PO DAILY 02/07/23 02/07/23 Unknown History Assessment and Plan Assessment Anesthesia Assessment: Anesthesia Plan Discussed Final Anesthetic Review ASA Class: IV Final Preanesthetic Review: No Changes in Pt Med Stat, Meds/Allgs Chart Reviewed, Consent Obtained/Reviewed and Anes Risks/Benef Reviewed Patient Risk: High (HOCUM) Procedure Risk: Low Anesthetic Plan Anesthetic Plan: MAC: Disposition: Standard PACU
[2023-02-09 08:47] VITALS: BP 142/63; PULSE 60; RESP 18; TEMP 36.5; O2SAT 100
[2023-02-09] MEDS: Lactated Ringers 1,000 ML 100 ML IVCONT (08:55)
[2023-02-09 10:38] VITALS: BP 90/31; PULSE 60; RESP 14; TEMP 36.2; O2SAT 98
--- NOTE | 2023-02-09 10:38 | PM.OP ---
Brief Operative Note Date of Service: 02/09/23 Pre-op diagnosis: Screening Post-op diagnosis: other (Diverticulosis, Melanosis coli) Procedure: Colonoscopy to the cecum Surgeon: Néstor Ordaz MD Anesthesia: MAC Was an Computer Technical Support Specialist used for this Procedure?: No Estimated blood loss (mL): 0 Pathology: none sent Condition: stable Disposition: PACU
[2023-02-09 10:53] VITALS: BP 125/65; PULSE 60; RESP 16; O2SAT 99
--- NOTE | 2023-02-09 10:55 | OP_ITS ---
DATE OF SERVICE: 02/09/2023 SURGEON: Néstor Ordaz MD INDICATIONS: The patient presents for evaluation of colorectal cancer screening and personal history of colon polyps. Full consent was obtained from her for this, including risks of bleeding and perforation. PREOPERATIVE DIAGNOSIS: POSTOPERATIVE DIAGNOSIS: PROCEDURE PERFORMED: Colonoscopy to cecum. ESTIMATED BLOOD LOSS: COMPLICATIONS: ANESTHESIA: Medication Used: Monitored anesthesia care. ASSISTANTS: SPECIMENS: PREOPERATIVE DIAGNOSES: Colorectal cancer screening and personal history of colon. POSTOPERATIVE DIAGNOSES: Colorectal cancer screening and personal history of colon, diverticulosis, internal hemorrhoids, melanosis coli. DESCRIPTION OF PROCEDURE: The patient was placed in the left lateral decubitus position. The digital rectal exam revealed no abnormalities. The Olympus video pediatric colonoscope was entered into the rectum and advanced easily to the cecum. Once in the cecum, I did identify normal-appearing cecal pouch with appendiceal orifice and a normal-appearing ileocecal valve. There was transillumination of light deep in the right lower quadrant. The entire cecum and ileocecal valve appeared normal. The scope was slowly withdrawn, assessing all mucosal surfaces carefully. Preparation was excellent. I did not visualize any sign of polyps, colitis, nor angiodysplasia. There was some evidence of melanosis coli. There was a moderate amount of diverticulosis. In the rectum, scope was retroflexed, visualizing internal hemorrhoids, but no other pathology. The rectal mucosa appeared normal. The scope was straightened and withdrawn from the patient. She tolerated the procedure well and was returned to the recovery area in stable condition. IMPRESSION: 1. Diverticulosis. 2. Internal hemorrhoids. 3. Melanosis coli. PLAN: I would recommend a repeat colonoscopy in 5 years for further screening. She will otherwise see me on a p.r.n. basis. MD ANNIE Vides/DAJAL / [phone]
[2023-02-09 11:07] VITALS: BP 126/57; PULSE 60; RESP 16; TEMP 36.2; O2SAT 99
== END 2023-02-09 12:03 | disposition home or self-care (01) ==
PROVIDERS: PCP Family Medicine; Visit Provider Internal Medicine
PROC: 0DJD8ZZ Inspection of Lower Intestinal Tract, Via Natural or Artificial Opening Endoscopic (ICD-10-PCS; CPT 45378; principal; 2023-02-09 09:30)
DX: Z12.11 Encounter for screening for malignant neoplasm of colon (principal); Z86.010 Personal history of colon polyps; K57.30 Diverticulosis of large intestine without perforation or abscess without bleeding; K64.8 Other hemorrhoids; K63.89 Other specified diseases of intestine; I10 Essential (primary) hypertension; E78.5 Hyperlipidemia, unspecified; E03.9 Hypothyroidism, unspecified; G47.33 Obstructive sleep apnea (adult) (pediatric); R00.1 Bradycardia, unspecified; Z95.0 Presence of cardiac pacemaker; Z85.820 Personal history of malignant melanoma of skin; Z85.3 Personal history of malignant neoplasm of breast; Z79.899 Other long term (current) drug therapy; Z88.1 Allergy status to other antibiotic agents; Z88.8 Allergy status to other drugs, medicaments and biological substances; Z87.891 Personal history of nicotine dependence
CPT/HCPCS: G0105

== ENCOUNTER 2023-05-03 14:08 | Outpatient (AMB) | payer MEDICARE, SELFPAY ==
[2023-05-03 14:29] VITALS: BP 110/54; PULSE 60; BMI 29.4
--- NOTE | 2023-05-03 14:29 | MHC.OFFVIS ---
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 Accompanied by: Self / Same As Patient Allergies amoxicillin [Amoxicillin] Allergy (Intermediate, Verified 05/03/23 14:46) HIVES/RASH/LIP SWELLING lisinopril Adverse Reaction (Intermediate, Verified 05/03/23 14:46) Cough Medication List - Last Reconciled 05/03/23 by Susannah Mccoy NP ascorbic acid (vitamin C) (Vitamin C) 500 mg PO BID atorvastatin 40 mg PO DAILY calcium carbonate (Calcium 500) 500 mg PO DAILY coenzyme Q10 (CoQ-10) 100 mg PO BID hydrochlorothiazide 1 cap PO DAILY levothyroxine 112 mcg PO DAILY losartan 100 mg PO DAILY magnesium citrate 250 mg PO DAILY venlafaxine ER 37.5 mg PO DAILY vit C,V-Fw-oovay-lutein-zeaxan 250-90-40-1 mg (PreserVision AREDS-2) 1 tab PO BID vitamin B complex (B Complex-Vitamin B12 tablet) 1 tab PO DAILY HPI HPI Comments History of Present Illness Details 72-year-old female presents today for a 6 month follow-up. She has a medical history of bradycardia with pacemaker placement and CASSIE with CPAP use. She reports other then recovering from the flu she has been doing well. She denies any chest pains, shortness of breath, dizziness, or swelling. She states she often goes for walks and tolerates it well. She has a [employer] device and is using remote. [facility] Medical History Bradycardia Pacemaker Dyspnea on exertion Depression Lymphedema Melanoma CASSIE (obstructive sleep apnea) Hypothyroidism Breast CA HLD (hyperlipidemia) HTN (hypertension) Surgical History History of permanent cardiac pacemaker placement Hx of appendectomy Status post bilateral breast reconstruction Hx of colonoscopy History of bilateral mastectomy Family History Mother Congestive heart failure Heart attack Father Peripheral artery disease Social History Household Members: Spouse Housing: House Do you presently have visiting nurse or other home services: No Alcohol intake: never Patient Tobacco Use Status: Former Tobacco user Quit Date: 30 yrs ago Tobacco use type: Cigarette Years Smoked: 10 +/- on and off Advance Directives Date on File: 09/23/20 service: No Current occupational status: employed Review of Systems Const Denies chills, Denies fatigue, Denies fever(s), Denies frequent falls, Denies weakness, Denies weight gain and Denies weight loss ENT Denies dizziness Card Denies chest pain, Denies leg edema, Denies lightheadedness, Denies palpitations, Denies dyspnea and Denies dyspnea on exertion Resp Denies cough, Denies dyspnea and Denies dyspnea on exertion GI Denies hematochezia Musc Denies abnormal gait, Denies muscle weakness, Denies numbness, Denies radiating pain into limb and Denies tingling Neuro Denies abnormal gait, Denies dizziness, Denies frequent falls, Denies numbness, Denies tingling and Denies weakness Endo Denies fatigue and Denies palpitations Physical Exam Vital Signs: Last Vital Signs Pulse 60 05/03/23 14:29 BP 110/54 L 05/03/23 14:29 BMI result Body Mass Index 29.4 Const General: healthy appearing and no acute distress Orientation/consciousness: patient oriented x3 HEENT Head: Yes normal to inspection Eyes General: appearance normal, both eyes and all related structures Neck Neck: Yes normal visual inspection Chest Chest palpation & inspection: normal inspection of the chest Resp Effort & Inspection: normal respiratory effort Auscultation: clear to auscultation bilaterally Cardio Jugular venous distension: no JVD Palpation: normal PMI Rate: regular rate Rhythm: regular rhythm Heart sounds: S1 normal heart sound present, S2 normal heart sound present, no click, no gallops, no murmurs and no rubs GI Inspection: Yes normal to inspection Palpation (GI): Soft to palpation Skin General skin exam: no rashes or lesions noted Neuro General: patient oriented x3 Extrem General: Yes normal to inspection Psych Appearance: grossly normal Assessment & Plan Assessment & Plan (1) SAVAGE (dyspnea on exertion): Code(s): R06.00 - Dyspnea, unspecified (2) Palpitations: Code(s): R00.2 - Palpitations (3) Status post cardiac pacemaker procedure: Comment: Medtronic Dual Chamber Code(s): Z95.0 - Presence of cardiac pacemaker Plan Pacemaker placement due to symptomatic bradycardia. No alerts on Medtronic site - due for remote transmission 05/07/23. Report any dyspnea, palpitations, chest pain, or any new or worsening symptoms. Coding Level of Care Code Est Pt Level 3 (29216) Diagnoses SAVAGE (dyspnea on exertion) R06.00 Palpitations R00.2 Status post cardiac pacemaker procedure Z95.0
== END 2023-05-03 15:05 | disposition home or self-care (01) ==
PROVIDERS: PCP Family Medicine; Visit Provider Nurse Practitioner
DX: R06.00 Dyspnea, unspecified (principal); R00.2 Palpitations; Z95.0 Presence of cardiac pacemaker
CPT/HCPCS: 99213

== ENCOUNTER → 2023-05-03 14:08 | Outpatient (BNVA) | payer MEDICARE, SELFPAY | PROVIDERS: PCP Family Medicine; Visit Provider Nurse Practitioner | DX: R06.00 Dyspnea, unspecified (principal); R00.2 Palpitations; G47.33 Obstructive sleep apnea (adult) (pediatric); Z95.0 Presence of cardiac pacemaker; Z99.89 Dependence on other enabling machines and devices | CPT/HCPCS: 99212 ==

== ENCOUNTER → 2023-05-06 23:59 | Outpatient (BNV) | payer MEDICARE, SELFPAY ==
--- NOTE | 2023-05-14 20:49 | MHC.OFFVIS ---
Intake Intake Visit Reasons: Remote Device Check- Medtronic Allergies amoxicillin [Amoxicillin] Allergy (Intermediate, Verified 05/03/23 14:46) HIVES/RASH/LIP SWELLING lisinopril Adverse Reaction (Intermediate, Verified 05/03/23 14:46) Cough PFSH Medical History Bradycardia Pacemaker Dyspnea on exertion Depression Lymphedema Melanoma CASSIE (obstructive sleep apnea) Hypothyroidism Breast CA HLD (hyperlipidemia) HTN (hypertension) Surgical History History of permanent cardiac pacemaker placement Hx of appendectomy Status post bilateral breast reconstruction Hx of colonoscopy History of bilateral mastectomy Family History Mother Congestive heart failure Heart attack Father Peripheral artery disease Social History Household Members: Spouse Housing: House Do you presently have visiting nurse or other home services: No Alcohol intake: never Patient Tobacco Use Status: Former Tobacco user Quit Date: 30 yrs ago Tobacco use type: Cigarette Years Smoked: 10 +/- on and off Advance Directives Date on File: 09/23/20 service: No Current occupational status: employed Office Procedures Cardiac Device Check Cardiac Device Check Details: PPM 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 [id number] Cardiac Device Interrogation, pacemaker or defibrillator Procedure code (CPT) selection complete Assessment & Plan Assessment & Plan (1) Symptomatic bradycardia: Comment: Dizziness, HR down to 30s at home. Mobitz Type II block in ER. Repeat EKG with bifascicular block Code(s): R00.1 - Bradycardia, unspecified Plan: Coding Level of Care Code Procedure Only Diagnoses Symptomatic bradycardia R00.1 CPT Codes Cardiac Device Check - Cardiac Device 14: [id number] Cardiac Device Interrogation, pacemaker or defibrillator ([id number])
== END ==
PROVIDERS: PCP Family Medicine; Visit Provider Internal Medicine Cardiovascular Disease
DX: R00.1 Bradycardia, unspecified (principal); Z95.0 Presence of cardiac pacemaker
CPT/HCPCS: 93294

== ENCOUNTER → 2023-08-06 23:59 | Outpatient (BNV) | payer MEDICARE, SELFPAY ==
--- NOTE | 2023-09-20 15:23 | MHC.OFFVIS ---
Intake Visit Reasons: Remote device check- Medtronic Allergies amoxicillin [Amoxicillin] Allergy (Intermediate, Verified 05/03/23 14:46) HIVES/RASH/LIP SWELLING lisinopril Adverse Reaction (Intermediate, Verified 05/03/23 14:46) Cough PFSH Medical History Bradycardia Pacemaker Dyspnea on exertion Depression Lymphedema Melanoma CASSIE (obstructive sleep apnea) Hypothyroidism Breast CA HLD (hyperlipidemia) HTN (hypertension) Surgical History History of permanent cardiac pacemaker placement Hx of appendectomy Status post bilateral breast reconstruction Hx of colonoscopy History of bilateral mastectomy Family History Mother Congestive heart failure Heart attack Father Peripheral artery disease Social History Household Members: Spouse Housing: House Do you presently have visiting nurse or other home services: No Alcohol intake: never Patient Tobacco Use Status: Former Tobacco user Tobacco use type: Cigarette Years Smoked: 10 +/- on and off Advance Directives Date on File: 09/23/20 service: No Current occupational status: employed Office Procedures Cardiac Device Check Cardiac Device Check Details: Medtronic permanent pacemaker. Good battery life. V paced 100%. No new alerts otherwise. [id number] Cardiac Device Check, pacemaker dual lead Procedure code (CPT) selection complete Assessment & Plan Assessment & Plan (1) Status post cardiac pacemaker procedure: Comment: Medtronic Dual Chamber Code(s): Z95.0 - Presence of cardiac pacemaker Category: Surgical Plan Coding Level of Care Code Procedure Only Diagnoses Status post cardiac pacemaker procedure Z95.0 CPT Codes Cardiac Device Check - Cardiac Device 2: 96702-[id number] Cardiac Device Check, pacemaker dual lead ([id number])
== END ==
PROVIDERS: PCP Family Medicine; Visit Provider Internal Medicine Cardiovascular Disease
DX: Z45.018 Encounter for adjustment and management of other part of cardiac pacemaker (principal)
CPT/HCPCS: 93294

== ENCOUNTER → 2023-11-06 23:59 | Outpatient (BNV) | payer MEDICARE, SELFPAY ==
--- NOTE | 2023-11-09 21:03 | MHC.OFFVIS ---
Intake Visit Reasons: Remote device check- Medtronic Allergies amoxicillin [Amoxicillin] Allergy (Intermediate, Verified 05/03/23 14:46) HIVES/RASH/LIP SWELLING lisinopril Adverse Reaction (Intermediate, Verified 05/03/23 14:46) Cough PFSH Medical History Bradycardia Pacemaker Dyspnea on exertion Depression Lymphedema Melanoma CASSIE (obstructive sleep apnea) Hypothyroidism Breast CA HLD (hyperlipidemia) HTN (hypertension) Surgical History History of permanent cardiac pacemaker placement Hx of appendectomy Status post bilateral breast reconstruction Hx of colonoscopy History of bilateral mastectomy Family History Mother Congestive heart failure Heart attack Father Peripheral artery disease Social History Household Members: Spouse Housing: House Do you presently have visiting nurse or other home services: No Alcohol intake: never Patient Tobacco Use Status: Former Tobacco user Tobacco use type: Cigarette Years Smoked: 10 +/- on and off Advance Directives Date on File: 09/23/20 service: No Current occupational status: employed Office Procedures Cardiac Device Check Cardiac Device Check Details: PPM Good battery life No new alerts. 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 [id number] Cardiac Device Check, pacemaker dual lead Procedure code (CPT) selection complete Assessment & Plan Assessment & Plan (1) Status post cardiac pacemaker procedure: Comment: Medtronic Dual Chamber Code(s): Z95.0 - Presence of cardiac pacemaker Category: Surgical Plan Orders: Orders AMB Cardiac Device Follow-up 11/06/23 Z95.0 - Presence of cardiac pacemaker Coding Level of Care Code Procedure Only Diagnoses Status post cardiac pacemaker procedure Z95.0 CPT Codes Cardiac Device Check - Cardiac Device 2: 73158-[id number] Cardiac Device Check, pacemaker dual lead ([id number])
== END ==
PROVIDERS: PCP Family Medicine; Visit Provider Internal Medicine Cardiovascular Disease
DX: Z45.018 Encounter for adjustment and management of other part of cardiac pacemaker (principal)
CPT/HCPCS: 93294

== ENCOUNTER 2023-11-14 12:56 | Outpatient (AMB) | payer MEDICARE, SELFPAY ==
[2023-11-14 13:08] VITALS: BP 120/70; PULSE 60; BMI 30.1
--- NOTE | 2023-11-14 13:08 | A.OFFVIS_ITS ---
Vital Signs 11/14/23 13:08 Height 5 ft 3 in Weight 169 lb 12.095 oz BMI 30.1 BP 120/70 Blood Pressure Location Rt brachial Position Sitting Pulse 60 Pulse Source Pulse Oximeter Intake Visit Reasons: 7 mth w/ medtronci ck Intake Note: 7 mth f/up with medtronic check/pt is feeling fine. 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 Accompanied by: Self / Same As Patient Allergies amoxicillin [Amoxicillin] Allergy (Intermediate, Verified 05/03/23 14:46) HIVES/RASH/LIP SWELLING lisinopril Adverse Reaction (Intermediate, Verified 05/03/23 14:46) Cough Medication List - Last Reconciled 11/14/23 by Loi Dorsey MD ascorbic acid (vitamin C) (Vitamin C) 500 mg PO BID atorvastatin 40 mg PO DAILY calcium carbonate (Calcium 500) 1,250 mg PO DAILY coenzyme Q10 (CoQ-10) 100 mg PO BID hydrochlorothiazide 1 cap PO DAILY levothyroxine 100 mcg PO DAILY losartan 100 mg PO DAILY magnesium citrate 250 mg PO DAILY venlafaxine ER 37.5 mg PO DAILY vit C,V-Bf-sohgg-lutein-zeaxan 250-90-40-1 mg (PreserVision AREDS-2) 1 tab PO BID vitamin B complex (B Complex-Vitamin B12 tablet) 1 tab PO DAILY HPI Comments Details: Pleasant 73 year female here for follow-up. 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 She presented soon after pacemaker placement with pleuritic chest pain was noticed to have small pericardial effusion. This was monitored and apparently she had repeat echocardiography with Dr. Fischer where the pericardial effusion did not increase in size. She was started on colchicine and after some weeks she stopped the colchicine but developed chest pain again. She was started on colchicine with improvement in her chest pains. She has persistent dyspnea on exertion. She was referred to PFTs which were normal. She is saying she started exercising and after 3 days of brisk walk she felt that her breathing was better than before. No chest discomfort. Her only complaint is fatigue. She has been V-paced 100% on the pacemaker. She had repeat echocardiography performed which showed normal biventricular function. 10/25/2022: She is here for 6 months follow-up. She is saying she is feeling great in the last couple of months. She has no shortness of breath. She has been active. No chest pains. Blood pressure control is good. She is asking water pacemaker life as she is paced all the time. So for battery life is 11.1 years based on interrogation from August 2022. 11/14/2023: She is here for follow-up. She is saying that she feels great. No chest discomfort shortness of breath. Taking medications regularly. She had a pacemaker interrogation in the office and the device has been functioning normally. [facility] Medical History Bradycardia Pacemaker Dyspnea on exertion Depression Lymphedema Melanoma CASSIE (obstructive sleep apnea) Hypothyroidism Breast CA HLD (hyperlipidemia) HTN (hypertension) Surgical History History of permanent cardiac pacemaker placement Hx of appendectomy Status post bilateral breast reconstruction Hx of colonoscopy History of bilateral mastectomy Family History Mother Congestive heart failure Heart attack Father Peripheral artery disease Social History Household Members: Spouse Housing: House Do you presently have visiting nurse or other home services: No Alcohol intake: never Patient Tobacco Use Status: Former Tobacco user Tobacco use type: Cigarette Years Smoked: 10 +/- on and off Advance Directives Date on File: 09/23/20 service: No Current occupational status: employed Review of Systems Const Denies chills, Denies fatigue, Denies fever(s), Denies frequent falls, Denies weakness, Denies weight gain and Denies weight loss ENT Denies dizziness Card Denies chest pain, Denies leg edema, Denies lightheadedness, Denies palpitations, Denies dyspnea and Denies dyspnea on exertion Resp Denies cough, Denies dyspnea and Denies dyspnea on exertion GI Denies hematochezia Musc Denies abnormal gait, Denies muscle weakness, Denies numbness, Denies radiating pain into limb and Denies tingling Neuro Denies abnormal gait, Denies dizziness, Denies frequent falls, Denies numbness, Denies tingling and Denies weakness Endo Denies fatigue and Denies palpitations Physical Exam Vital Signs: Last Vital Signs Pulse 60 11/14/23 13:08 BP 120/70 11/14/23 13:08 BMI result Body Mass Index 30.1 GENERAL APPEARANCE: in no acute distress, pleasant. NECK: no carotid bruit, no jugular venous distention. SKIN: no suspicious lesions, warm and dry. HEART: no murmurs, regular rate and rhythm. LUNGS: clear to auscultation bilaterally. ABDOMEN: soft, nontender. EXTREMITIES: no edema. PERIPHERAL PULSES: equal. NEUROLOGIC: No gross deficits, AAO X 3 Office Procedures Cardiac Device Check Cardiac Device Check Details: Medtronic dual-chamber pacemaker. Battery life 9.6 years. V paced 75.8%. A paced 79%. Increased right ventricular pacing more than 40% for 7 days. [id number] Cardiac Device Check, pacemaker dual lead Procedure code (CPT) selection complete Assessment & Plan Assessment & Plan (1) Status post cardiac pacemaker procedure: Comment: Medtronic Dual Chamber Code(s): Z95.0 - Presence of cardiac pacemaker Category: Medical (2) Dyspnea: Code(s): R06.00 - Dyspnea, unspecified Category: Medical Plan [age] year female who is here for follow-up. She has background history of symptomatic heart block and required permanent pacemaker placement. She has been doing reasonably well recently. She has some dyspnea which required further testing but no obvious cause was found. No evidence of cardiomyopathy on echocardiography. Taking medications regularly. She will see us back in 1 year. Thank you for allowing me to participate in the care of your patient. Please feel free to contact me if you have any questions. Orders: Orders AMB Cardiac Device Follow-up Today Z95.0 - Presence of cardiac pacemaker Coding Level of Care Code Est Pt Level 4 (90609) Diagnoses Status post cardiac pacemaker procedure Z95.0 Dyspnea R06.00 CPT Codes Cardiac Device Check - Cardiac Device 2: 44535-NO Cardiac Device Check, pacemaker dual lead ([id number])
== END 2023-11-14 13:37 | disposition home or self-care (01) ==
PROVIDERS: PCP Family Medicine; Visit Provider Internal Medicine Cardiovascular Disease
DX: R06.00 Dyspnea, unspecified (principal); Z95.0 Presence of cardiac pacemaker
CPT/HCPCS: 93280; 99214

== ENCOUNTER → 2023-11-14 12:56 | Outpatient (BNVA) | payer MEDICARE, SELFPAY | PROVIDERS: PCP Family Medicine; Visit Provider Internal Medicine Cardiovascular Disease | DX: R06.00 Dyspnea, unspecified (principal); Z45.018 Encounter for adjustment and management of other part of cardiac pacemaker | CPT/HCPCS: 93280; 99212 ==

== ENCOUNTER → 2024-02-12 23:59 | Outpatient (BNV) | payer MEDICARE, SELFPAY ==
--- NOTE | 2024-02-25 20:24 | A.OFFVIS_ITS ---
Intake Visit Reasons: Remote device check- Medtronic Allergies amoxicillin [Amoxicillin] Allergy (Intermediate, Verified 05/03/23 14:46) HIVES/RASH/LIP SWELLING lisinopril Adverse Reaction (Intermediate, Verified 05/03/23 14:46) Cough PFSH Medical History Bradycardia Pacemaker Dyspnea on exertion Depression Lymphedema Melanoma CASSIE (obstructive sleep apnea) Hypothyroidism Breast CA HLD (hyperlipidemia) HTN (hypertension) Surgical History History of permanent cardiac pacemaker placement Hx of appendectomy Status post bilateral breast reconstruction Hx of colonoscopy History of bilateral mastectomy Family History Mother Congestive heart failure Heart attack Father Peripheral artery disease Social History Household Members: Spouse Housing: House Do you presently have visiting nurse or other home services: No Alcohol intake: never Patient Tobacco Use Status: Former Tobacco user Tobacco use type: Cigarette Years Smoked: 10 +/- on and off Advance Directives Date on File: 09/23/20 service: No Current occupational status: employed Office Procedures Cardiac Device Check Cardiac Device Check Details: PPM Good battery life 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 [id number] Cardiac Device Check, pacemaker dual lead Procedure code (CPT) selection complete Assessment & Plan Assessment & Plan (1) Status post cardiac pacemaker procedure: Comment: Medtronic Dual Chamber Code(s): Z95.0 - Presence of cardiac pacemaker Category: Surgical Plan: Coding Level of Care Code Procedure Only Diagnoses Status post cardiac pacemaker procedure Z95.0 CPT Codes Cardiac Device Check - Cardiac Device 2: 58165-JQ Cardiac Device Check, pacemaker dual lead ([id number])
== END ==
PROVIDERS: PCP Family Medicine; Visit Provider Internal Medicine Cardiovascular Disease
DX: Z45.018 Encounter for adjustment and management of other part of cardiac pacemaker (principal)
CPT/HCPCS: 93294

== ENCOUNTER 2024-02-15 07:52 | Outpatient (REF) | payer MEDICARE, SELFPAY ==
[2024-02-15 08:36] LABS: Hematocrit 42.6 % (37.0-47.0); Hemoglobin 14.1 g/dl (12.0-16.0); Mean Corpuscular HGB Conc 33.1 g/dl (31.0-35.0); Mean Corpuscular Hemoglobin 28.4 pg (27.0-33.0); Mean Corpuscular Volume 85.7 fL (80.0-98.0); Mean Platelet Volume 10.9 fL (9.4-12.3); Platelet Count 224 X10*3/uL (160-400); Red Blood Count 4.97 X10*6/uL (4.20-5.50); White Blood Count 6.7 X10*3/uL (4.8-10.8)
[2024-02-15 08:53] LABS: Anion Gap 13 (12-20); Blood Urea Nitrogen 13 mg/dL (9-16); Calcium 9.2 mg/dL (8.4-10.2); Carbon Dioxide 30 mmol/L (22-29); Chloride 103 mmol/L (96-108); Estimated Glomerular Filt Rate > 60; Glucose Random 103 mg/dL (60-115); Potassium 4.1 mmol/L (3.3-5.1); Sodium 142 mmol/L (135-145)
== END 2024-02-15 07:53 | disposition home or self-care (01) ==
LOC: HO.LAB 07:52
PROVIDERS: PCP Family Medicine; Visit Provider Nurse Practitioner Family
DX: I44.1 Atrioventricular block, second degree (principal); R00.1 Bradycardia, unspecified; R00.2 Palpitations
CPT/HCPCS: 36415; 80048; 85027

== ENCOUNTER → 2024-05-08 23:59 | Outpatient (BNV) | payer MEDICARE, SELFPAY ==
--- NOTE | 2024-05-09 11:20 | MHC.OFFVIS ---
Intake Visit Reasons: Remote device check- Medtronic Allergies amoxicillin [Amoxicillin] Allergy (Intermediate, Verified 05/03/23 14:46) HIVES/RASH/LIP SWELLING lisinopril Adverse Reaction (Intermediate, Verified 05/03/23 14:46) Cough PFSH Medical History Bradycardia Pacemaker Dyspnea on exertion Depression Lymphedema Melanoma CASSIE (obstructive sleep apnea) Hypothyroidism Breast CA HLD (hyperlipidemia) HTN (hypertension) Surgical History History of permanent cardiac pacemaker placement Hx of appendectomy Status post bilateral breast reconstruction Hx of colonoscopy History of bilateral mastectomy Family History Mother Congestive heart failure Heart attack Father Peripheral artery disease Social History Household Members: Spouse Housing: House Do you presently have visiting nurse or other home services: No Alcohol intake: never Patient Tobacco Use Status: Former Tobacco user Tobacco use type: Cigarette Years Smoked: 10 +/- on and off Advance Directives Date on File: 09/23/20 service: No Current occupational status: employed Office Procedures Cardiac Device Check Cardiac Device Check Details: Medtronic dual-chamber pacemaker. Battery life 9 years. Mode AAI, DDD. V paced 100%. A paced 82%. [id number] Cardiac Device Check, pacemaker dual lead Procedure code (CPT) selection complete Assessment & Plan Assessment & Plan (1) Status post cardiac pacemaker procedure: Comment: Medtronic Dual Chamber Code(s): Z95.0 - Presence of cardiac pacemaker Category: Surgical Plan Orders: Orders AMB Cardiac Device Follow-up 05/08/24 Z95.0 - Presence of cardiac pacemaker Coding Level of Care Code Procedure Only Diagnoses Status post cardiac pacemaker procedure Z95.0 CPT Codes Cardiac Device Check - Cardiac Device 2: 66676-LM Cardiac Device Check, pacemaker dual lead ([id number])
== END ==
PROVIDERS: PCP Family Medicine; Visit Provider Internal Medicine Cardiovascular Disease
DX: Z45.018 Encounter for adjustment and management of other part of cardiac pacemaker (principal)
CPT/HCPCS: 93294

== ENCOUNTER → 2024-08-08 23:59 | Outpatient (BNV) | payer MEDICARE, SELFPAY ==
--- NOTE | 2024-09-11 21:53 | MHC.OFFVIS ---
Intake Visit Reasons: Remote device check- Medtronic Allergies amoxicillin [Amoxicillin] Allergy (Intermediate, Verified 05/03/23 14:46) HIVES/RASH/LIP SWELLING lisinopril Adverse Reaction (Intermediate, Verified 05/03/23 14:46) Cough PFSH Medical History Bradycardia Pacemaker Dyspnea on exertion Depression Lymphedema Melanoma CASSIE (obstructive sleep apnea) Hypothyroidism Breast CA HLD (hyperlipidemia) HTN (hypertension) Surgical History History of permanent cardiac pacemaker placement Hx of appendectomy Status post bilateral breast reconstruction Hx of colonoscopy History of bilateral mastectomy Family History Mother Congestive heart failure Heart attack Father Peripheral artery disease Social History Household Members: Spouse Housing: House Do you presently have visiting nurse or other home services: No Alcohol intake: never Patient Tobacco Use Status: Former Tobacco user Tobacco use type: Cigarette Years Smoked: 10 +/- on and off Advance Directives Date on File: 09/23/20 service: No Current occupational status: employed Office Procedures Cardiac Device Check Cardiac Device Check Details: PPM 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 [id number] Cardiac Device Interrogation, pacemaker Procedure code (CPT) selection complete Assessment & Plan Assessment & Plan (1) Status post cardiac pacemaker procedure: Comment: Medtronic Dual Chamber Code(s): Z95.0 - Presence of cardiac pacemaker Category: Surgical Plan Coding Level of Care Code Procedure Only Diagnoses Status post cardiac pacemaker procedure Z95.0 CPT Codes Cardiac Device Check - Cardiac Device 12: [id number] Cardiac Device Interrogation, pacemaker ([id number])
== END ==
PROVIDERS: PCP Family Medicine; Visit Provider Internal Medicine Cardiovascular Disease
DX: Z45.018 Encounter for adjustment and management of other part of cardiac pacemaker (principal)
CPT/HCPCS: 93294

== ENCOUNTER 2024-09-12 14:22 | Outpatient (AMB) | payer MEDICARE, SELFPAY ==
[2024-09-12 14:31] VITALS: BP 120/70; PULSE 62; BMI 29.4
--- NOTE | 2024-09-12 14:31 | A.OFFVIS_ITS ---
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 Accompanied by: Self / Same As Patient Allergies amoxicillin [Amoxicillin] Allergy (Intermediate, Verified 05/03/23 14:46) HIVES/RASH/LIP SWELLING lisinopril Adverse Reaction (Intermediate, Verified 05/03/23 14:46) Cough Medication List - Last Reconciled 09/13/24 by Loi Dorsey MD ascorbic acid (vitamin C) (Vitamin C) 500 mg PO BID atorvastatin 40 mg PO DAILY calcium carbonate (Calcium 500) 1,250 mg PO DAILY coenzyme Q10 (CoQ-10) 100 mg PO BID hydrochlorothiazide 1 cap PO DAILY levothyroxine 112 mcg PO DAILY losartan 100 mg PO DAILY magnesium citrate 250 mg PO DAILY venlafaxine ER 37.5 mg PO DAILY vit C,P-Jb-zoskc-lutein-zeaxan 250-90-40-1 mg (PreserVision AREDS-2) 1 tab PO BID vitamin B complex (B Complex-Vitamin B12 tablet) 1 tab PO DAILY HPI Comments Details: Pleasant 74 year female here for follow-up. 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 She presented soon after pacemaker placement with pleuritic chest pain was noticed to have small pericardial effusion. This was monitored and apparently she had repeat echocardiography with Dr. Fischer where the pericardial effusion did not increase in size. She was started on colchicine and after some weeks she stopped the colchicine but developed chest pain again. She was started on colchicine with improvement in her chest pains. She has persistent dyspnea on exertion. She was referred to PFTs which were normal. She is saying she started exercising and after 3 days of brisk walk she felt that her breathing was better than before. No chest discomfort. Her only complaint is fatigue. She has been V-paced 100% on the pacemaker. She had repeat echocardiography performed which showed normal biventricular function. 10/25/2022: She is here for 6 months follow-up. She is saying she is feeling great in the last couple of months. She has no shortness of breath. She has been active. No chest pains. Blood pressure control is good. She is asking water pacemaker life as she is paced all the time. So for battery life is 11.1 years based on interrogation from August 2022. 11/14/2023: She is here for follow-up. She is saying that she feels great. No chest discomfort shortness of breath. Taking medications regularly. She had a pacemaker interrogation in the office and the device has been functioning normally. 09/12/2024: She is here for follow-up. She has been doing well. No chest pain or shortness of breath. She has question about her episode of atrial fibrillation which was recorded by the pacemaker previously. It was proposed to her to consider anticoagulation but she was unsure about it and she did not agree to take it. Her CHADS-VASc is 3. She is denying any significant palpitations. Blood pressure is well controlled. [facility] Medical History Bradycardia Pacemaker Dyspnea on exertion Depression Lymphedema Melanoma CASSIE (obstructive sleep apnea) Hypothyroidism Breast CA HLD (hyperlipidemia) HTN (hypertension) Surgical History History of permanent cardiac pacemaker placement Hx of appendectomy Status post bilateral breast reconstruction Hx of colonoscopy History of bilateral mastectomy Family History Mother Congestive heart failure Heart attack Father Peripheral artery disease Social History Household Members: Spouse Housing: House Do you presently have visiting nurse or other home services: No Alcohol intake: never Patient Tobacco Use Status: Former Tobacco user Tobacco use type: Cigarette Years Smoked: 10 +/- on and off Advance Directives Date on File: 09/23/20 service: No Current occupational status: employed Review of Systems Const Denies chills, Denies fatigue, Denies fever(s), Denies frequent falls, Denies weakness, Denies weight gain and Denies weight loss ENT Denies dizziness Card Denies chest pain, Denies leg edema, Denies lightheadedness, Denies palpitations, Denies dyspnea and Denies dyspnea on exertion Resp Denies cough, Denies dyspnea and Denies dyspnea on exertion GI Denies hematochezia Musc Denies abnormal gait, Denies muscle weakness, Denies numbness, Denies radiating pain into limb and Denies tingling Neuro Denies abnormal gait, Denies dizziness, Denies frequent falls, Denies numbness, Denies tingling and Denies weakness Endo Denies fatigue and Denies palpitations Physical Exam Vital Signs: Last Vital Signs Pulse 62 09/12/24 14:31 BP 120/70 09/12/24 14:31 BMI result Body Mass Index 29.4 GENERAL APPEARANCE: in no acute distress, pleasant. NECK: no carotid bruit, no jugular venous distention. SKIN: no suspicious lesions, warm and dry. HEART: no murmurs, regular rate and rhythm. LUNGS: clear to auscultation bilaterally. ABDOMEN: soft, nontender. EXTREMITIES: no edema. PERIPHERAL PULSES: equal. NEUROLOGIC: No gross deficits, AAO X 3 Office Procedures EKG Details: Atrial sense V paced rhythm with long AV conduction 368 milliseconds, QTC 523 mi lliseconds. 10421-Wplwonomxjdoltgic, Complete Assessment & Plan Assessment & Plan (1) PAF (paroxysmal atrial fibrillation): Code(s): I48.0 - Paroxysmal atrial fibrillation Category: Medical (2) Status post cardiac pacemaker procedure: Comment: Mach Fuelstronic Dual Chamber Code(s): Z95.0 - Presence of cardiac pacemaker Category: Surgical Plan Pleasant 74 year female who is here for follow-up. She has history of complete heart block and has permanent pacemaker in place with 100% pacing. LV function has been stable and she has no heart failure symptoms. Well controlled blood pressure. She had episode of atrial fibrillation recorded by pacemaker previously. Given her CHADS-VASc score of 3 she was advised to take anticoagulation but she did not want to start anticoagulation at that stage. We discussed in detail about risk of stroke and monitoring options. I have ex plained to her that pacemaker interrogation may only diagnose previous episodes of atrial fibrillation. Unfortunately sometime atrial fibrillation episodes are long and thromboembolic events can happen and stroke is the most devastating one. We discussed about doing 30 day cardiac event monitor. This way we can be informed promptly anticoagulation. Alternatively we can discuss referring her for Watchman device. She will think about this and we will have further discussions as we do the cardiac event monitor. Thank you for allowing me to participate in the care of your patient. Please fe el free to contact me if you have any questions. Orders: Orders ECG 30 day event monitor 09/12/24 I48.0 - Paroxysmal atrial fibrillation Coding Level of Care Code Est Pt Level 4 (70686) Complex EM visit Add On G2211 Diagnoses PAF (paroxysmal atrial fibrillation) I48.0 Status post cardiac pacemaker procedure Z95.0 CPT Codes EKG - CPT: 10266-Lryhwhrnjmzthurxy, Complete ([id number])
--- OUTSIDE RECORDS SUMMARY | 2024-09-12 16:26 | XMS_ITS | Patient Health Record ---
Author Organization [facility] Address [address] [place] [address] Care Team Providers Care Ct Manager Name Role Phone Iris Ragland MD Primary Care Provider Un available Néstor Ordaz Unavailable [phone] Allergies Allergen (clinical drug ingredient) Drug/Non Drug Allergy documented on EMR Reaction Allergy Type Onset Date Status amoxicillin Amoxicillin Unknown Drug Allergy Act brandee Reason For Referral No Information Medications Medication SIG (Take, Route, Frequency, Duration) Notes Start Date End Date Status Multi Vitamin/Minerals Active Effexor 37.5 MG 1 tablet with food Orally Once a day Active Levothyroxine Sodium 112 MCG 1 tablet on an empty stomach in the morning Orally Once a day Active Atorvastatin Calcium 40 MG TAKE ONE TABL ET BY MOUTH EVERY DAY Oral for 90 Active hydroCHLOROthiazide 12.5 MG TAKE ONE CAP JASVIR BY MOUTH EVERY DAY Oral for 90 Active Losartan Potassium 100 MG TAKE ONE TABLE T BY MOUTH EVERY DAY Oral for 90 Active Immunizations Vaccine Route Administration Date Status Comme nts Flu vaccine no Preserv 3 and > Unknown 02/14/2017 Admin istered Social History Tobacco Use: Social History Observation Description Date Details (start date - stop date) Former Smoker NA - NA Tobacco Use/Smoking Question Answer Notes Patient is a former smoker Alcohol Screen Question Answer Notes Did you have a drink contain ing alcohol in the past year? Yes How often did you have a dri nk containing alcohol in the past year? 2 to 3 times a week (3 points) How many drinks did you have on a typical day when you were drinking in the past year? 1 or 2 drinks (0 point) How often did you have 6 or more drinks on one occasion in the past year? Never (0 point) Points 3 Interpretation Positive Section Notes: Nonsmoker; no sig alcohol Nonsmoker; no sig alcohol Problems Problem Type SNOMED Code ICD Code Onset Dates Problem Status W/U Status Risk Notes Problem 113408561 Encounter for screening for malignant neoplasm of colon (Z12.11) Active confirmed Problem History of polyp of colon (situation) (295127025) Personal history of colonic polyps (Z86.010) Active confirmed Problem Diverticular disease of colon (260343193) Diverticulosis of large intestine without perforation or abscess without bleeding (K57.30) Active confirmed Problem 096317228 History of colon polyps (Z86.010) Active confirmed Problem 05311258 Constipation, unspecified constipation type (K59.00) Active confirmed Problem 91677125 Hypertension, unspecified type (I10) Active confirmed Problem 527919211 Right flank pain (R10.9) Active confirmed Plan Of Treatment Future Test Test Name Order Date COLONOSCOPY 07/29/2017 COLONOSCOPY 11/17/2022 Insurance Providers Payer Name Payer Address Payer Phone Subscriber Number Group Number Insured Name Patient Relationship to Insured Coverage Start Date Coverage End Date MED[place]ARE OF [place] [address] [place] [address] [id number] LITO NGUYEN Self - patient is the insured MED[employer] ATT[employer] CLAIMS [address] [place] [address] [phone] [id number] LITO NGUYEN Self - patient is the insured Medical (General) History Medical History History ICD Code Breast cancer--1999--on the left--initial lumpectomy, and eventual bilateral mastectomy--then chemo and Tamoxifen Hypothyroidism Depression Denies RI,DM,CVA,Lung disease,renal dise ase Neg. colonoscopy in [address] Taylor--melanosis coli; colonoscopy appprox [address] Taylor---told of polyps and need for F/U in 5 years--- the pathology report from 2012 revealed a serrated polyp in the ascending colon and a tubulovillous adenoma removed at 10cm Sleep apnea--uses CPAP Constipation--previously on Senna 2020 Pacemaker-Dr. 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
== END 2024-09-12 14:55 | disposition home or self-care (01) ==
LOC: HO.HCS 14:23
PROVIDERS: PCP Family Medicine; Visit Provider Internal Medicine Cardiovascular Disease
DX: I48.0 Paroxysmal atrial fibrillation (principal); Z95.0 Presence of cardiac pacemaker
CPT/HCPCS: 99214; G2211

== ENCOUNTER → 2024-09-12 14:22 | Outpatient (BNVA) | payer MEDICARE, SELFPAY | PROVIDERS: PCP Family Medicine; Visit Provider Internal Medicine Cardiovascular Disease | DX: I48.0 Paroxysmal atrial fibrillation (principal); R94.31 Abnormal electrocardiogram [ECG] [EKG]; Z95.0 Presence of cardiac pacemaker | CPT/HCPCS: 93005; 99212 ==

== ENCOUNTER → 2024-10-08 11:05 | Outpatient (REF) | payer MEDICARE, SELFPAY ==
--- NOTE | 2024-10-08 11:14 | HM_ITS ---
Cardiac event monitor Indication: Paroxysmal atrial fibrillation Technique: Patient was hooked up to cardiac event monitor from 10/08/2024 to 11/07/2024 for total period of 30 days with a wear time of 27 days Findings: Baseline rhythm appears to be normal sinus rhythm with wide complex which could be either pacing or left bundle-branch block. Average heart rate of 62 beats per minute. Fastest heart rate at 120 beats per minute which could represent pacemaker mediated tachycardia. Rare PVCs noted. No pauses or av conduction abnormalities noted Patient triggered 7 strips, 3 events with no symptoms specified correlating with sinus rhythm with wide QRS, either pacing or left bundle-branch block Conclusion: 1. Baseline was normal sinus rhythm with wide complex QRS most likely pacing/left bundle-branch block 2. No significant arrhythmias noted 3. Patient reported 3 events that correlated with sinus rhythm MTDD
--- OUTSIDE RECORDS SUMMARY | 2024-10-08 12:03 | XMS_ITS | Patient Health Record ---
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 Name Role Phone Iris Ragland MD Primary Care Provider Un available Néstor Ordaz Unavailable [phone] Allergies Allergen (clinical drug ingredient) Drug/Non Drug [...] Problem Status W/U Status Risk Notes Problem 014972875 Encounter for screening for malignant neoplasm of colon (Z12.11) Active confirmed Problem History of polyp of colon (situation) (890843569) Personal history of colonic polyps (Z86.010) Active confirmed Problem Diverticular disease of colon (885088428) Diverticulosis of large intestine without perforation or abscess without bleeding (K57.30) Active confirmed Problem 345591925 History of colon polyps (Z86.010) Active confirmed Problem 34355996 Constipation, unspecified constipation type (K59.00) Active confirmed Problem 64103316 Hypertension, unspecified type (I10) Active confirmed Problem 481806531 Right flank pain (R10.9) Active confirmed Plan Of Treatment Future Test Test Name Order Date COLONOSCOPY 07/29/2017 COLONOSCOPY 11/17/2022 Insurance Providers Payer Name Payer Address Payer Phone Subscriber Number Group Number Insured Name Patient Relationship to Insured Coverage Start Date Coverage End Date [place] [address] [place] [address] [phone] [id number] LITO NGUYEN Self - patient is the insured MEDEX ATTN CLAIMS [address] [place] [phone] [id number] LITO NGUYEN Self - patient is the insured Medical (General) History Medical History History ICD Code Breast cancer--1999--on the left--initial lumpectomy, and eventual bilateral mastectomy--then chemo and Tamoxifen Hypothyroidism Depression Denies ME,DM,CVA,Lung disease,renal dise ase Neg. 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
== END ==
LOC: HO.CARD 11:05
PROVIDERS: PCP Family Medicine; Visit Provider Internal Medicine Cardiovascular Disease
DX: I48.0 Paroxysmal atrial fibrillation (principal)
CPT/HCPCS: 93270

== ENCOUNTER → 2024-10-08 11:14 | Outpatient (BNV) | payer MEDICARE, SELFPAY | PROVIDERS: PCP Family Medicine; Visit Provider Internal Medicine Cardiovascular Disease | DX: I44.7 Left bundle-branch block, unspecified (principal); I48.0 Paroxysmal atrial fibrillation | CPT/HCPCS: 93272 ==

== ENCOUNTER → 2024-11-08 23:59 | Outpatient (BNV) | payer MEDICARE, SELFPAY ==
--- NOTE | 2024-11-18 20:42 | A.OFFVIS_ITS ---
Intake Visit Reasons: Remote device check- Medtronic Allergies amoxicillin (Amoxicillin) Allergy (Intermediate, Verified 05/03/23 14:46) HIVES/RASH/LIP SWELLING lisinopril Adverse Reaction (Intermediate, Verified 05/03/23 14:46) Cough PFSH Medical History Bradycardia Pacemaker Dyspnea on exertion Depression Lymphedema Melanoma CASSIE (obstructive sleep apnea) Hypothyroidism Breast CA HLD (hyperlipidemia) HTN (hypertension) Surgical History History of permanent cardiac pacemaker placement Hx of appendectomy Status post bilateral breast reconstruction Hx of colonoscopy History of bilateral mastectomy Family History Mother Congestive heart failure Heart attack Father Peripheral artery disease Social History Household Members: Spouse Housing: House Do you presently have visiting nurse or other home services: No Alcohol intake: never Patient Tobacco Use Status: Former Tobacco user Tobacco use type: Cigarette Years Smoked: 10 +/- on and off Advance Directives Date on File: 09/23/20 service: No Current occupational status: employed Office Procedures Cardiac Device Check Cardiac Device Check Details: PPM [employer] 100% Good battery life No new alerts. [id number] Cardiac Device Interrogation, pacemaker Procedure code (CPT) selection complete Assessment & Plan Assessment & Plan (1) Status post cardiac pacemaker procedure: Comment: Medtronic Dual Chamber Code(s): Z95.0 - Presence of cardiac pacemaker Category: Surgical Plan Coding Level of Care Code Procedure Only Diagnoses Status post cardiac pacemaker procedure Z95.0 CPT Codes Cardiac Device Check - Cardiac Device 12: [id number] Cardiac Device In [facility], pacemaker ([id number])
== END ==
PROVIDERS: PCP Family Medicine; Visit Provider Internal Medicine Cardiovascular Disease
DX: Z45.018 Encounter for adjustment and management of other part of cardiac pacemaker (principal)
CPT/HCPCS: 93294

== ENCOUNTER 2024-12-31 14:07 | Outpatient (AMB) | payer MEDICARE, SELFPAY ==
--- NOTE | 2024-12-31 14:12 | MHC.OFFVIS ---
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: No Accompanied by: Self / Same As Patient Allergies amoxicillin (Amoxicillin) Allergy (Intermediate, Verified 05/03/23 14:46) HIVES/RASH/LIP SWELLING lisinopril Adverse Reaction (Intermediate, Verified 05/03/23 14:46) Cough Medication List - Last Reconciled 12/31/24 by Loi Dorsey MD ascorbic acid (vitamin C) (Vitamin C) 500 mg PO BID atorvastatin 40 mg PO DAILY calcium carbonate (Calcium 500) 1,250 mg PO DAILY coenzyme Q10 (CoQ-10) 100 mg PO BID hydrochlorothiazide 1 cap PO DAILY levothyroxine 112 mcg PO DAILY losartan 100 mg PO DAILY magnesium citrate 250 mg PO DAILY venlafaxine ER 37.5 mg PO DAILY vit C,P-Mg-xkwsi-lutein-zeaxan 250-90-40-1 mg (PreserVision AREDS-2) 1 tab PO BID vitamin B complex (B Complex-Vitamin B12 tablet) 1 tab PO DAILY HPI Comments Details: Pleasant 74 year female here for follow-up. 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 She presented soon after pacemaker placement with pleuritic chest pain was noticed to have small pericardial effusion. This was monitored and apparently she had repeat echocardiography with Dr. Fischer where the pericardial effusion did not increase in size. She was started on colchicine and after some weeks she stopped the colchicine but developed chest pain again. She was started on colchicine with improvement in her chest pains. She has persistent dyspnea on exertion. She was referred to PFTs which were normal. She is saying she started exercising and after 3 days of brisk walk she felt that her breathing was better than before. No chest discomfort. Her only complaint is fatigue. She has been V-paced 100% on the pacemaker. She had repeat echocardiography performed which showed normal biventricular function. 10/25/2022: She is here for 6 months follow-up. She is saying she is feeling great in the last couple of months. She has no shortness of breath. She has been active. No chest pains. Blood pressure control is good. She is asking water pacemaker life as she is paced all the time. So for battery life is 11.1 years based on interrogation from August 2022. 11/14/2023: She is here for follow-up. She is saying that she feels great. No chest discomfort shortness of breath. Taking medications regularly. She had a pacemaker interrogation in the office and the device has been functioning normally. 09/12/2024: She is here for follow-up. She has been doing well. No chest pain or shortness of breath. She has question about her episode of atrial fibrillation which was recorded by the pacemaker previously. It was proposed to her to consider anticoagulation but she was unsure about it and she did not agree to take it. Her CHADS-VASc is 3. She is denying any significant palpitations. Blood pressure is well controlled. 12/31/2024: She returns for follow-up. She had cardiac event monitor which did not show atrial fibrillation. Currently we have decided not to start anticoagulation after a long discussion. She is feeling fine and has no symptoms to report. [facility] Medical History Bradycardia Pacemaker Dyspnea on exertion Depression Lymphedema Melanoma CASSIE (obstructive sleep apnea) Hypothyroidism Breast CA HLD (hyperlipidemia) HTN (hypertension) Surgical History History of permanent cardiac pacemaker placement Hx of appendectomy Status post bilateral breast reconstruction Hx of colonoscopy History of bilateral mastectomy Family History Mother Congestive heart failure Heart attack Father Peripheral artery disease Social History Household Members: Spouse Housing: House Do you presently have visiting nurse or other home services: No Alcohol intake: never Patient Tobacco Use Status: Former Tobacco user Tobacco use type: Cigarette Years Smoked: 10 +/- on and off Advance Directives Date on File: 09/23/20 service: No Current occupational status: employed Review of Systems Const Denies chills, Denies fatigue, Denies fever(s), Denies frequent falls, Denies weakness, Denies weight gain and Denies weight loss ENT Denies dizziness Card Denies chest pain, Denies leg edema, Denies lightheadedness, Denies palpitations, Denies dyspnea and Denies dyspnea on exertion Resp Denies cough, Denies dyspnea and Denies dyspnea on exertion GI Denies hematochezia Musc Denies abnormal gait, Denies muscle weakness, Denies numbness, Denies radiating pain into limb and Denies tingling Neuro Denies abnormal gait, Denies dizziness, Denies frequent falls, Denies numbness, Denies tingling and Denies weakness Endo Denies fatigue and Denies palpitations Physical Exam Vital Signs: Last Vital Signs Pulse 60 12/31/24 14:13 BP 120/64 12/31/24 14:13 BMI result Body Mass Index 29.3 GENERAL APPEARANCE: in no acute distress, pleasant. NECK: no carotid bruit, no jugular venous distention. SKIN: no suspicious lesions, warm and dry. HEART: no murmurs, regular rate and rhythm. LUNGS: clear to auscultation bilaterally. ABDOMEN: soft, nontender. EXTREMITIES: no edema. PERIPHERAL PULSES: equal. NEUROLOGIC: No gross deficits, AAO X 3 Assessment & Plan Assessment & Plan (1) PAF (paroxysmal atrial fibrillation): Code(s): I48.0 - Paroxysmal atrial fibrillation Category: Medical (2) Status post cardiac pacemaker procedure: Comment: Medtronic Dual Chamber Code(s): Z95.0 - Presence of cardiac pacemaker Category: Surgical Plan Pleasant 74 year female who is here for follow-up. She has history of complete heart block and has permanent pacemaker in place with 100% pacing. LV function has been stable and she has no heart failure symptoms. Well controlled blood pressure. She had episode of atrial fibrillation recorded by pacemaker previously. Given her CHADS-VASc score of 3 she was advised to take anticoagulation but she did not want to start anticoagulation at that stage. We discussed in detail about risk of stroke and monitoring options. I have explained to her that pacemaker interrogation may only diagnose previous episodes of atrial fibrillation. Unfortunately sometime atrial fibrillation episodes are long and thromboembolic events can happen and stroke is the most devastating one. After discussion we did a 30 day event monitor which did not show any episode of atrial fibrillation. So far we have decided not to start anticoagulation with active monitoring using her pacemaker. If she had any palpitations or new symptoms she will report to us. Thank you for allowing me to participate in the care of your patient. Please feel free to contact me if you have any questions. Coding Level of Care Code Est Pt Level 4 (74910) Diagnoses PAF (paroxysmal atrial fibrillation) I48.0 Status post cardiac pacemaker procedure Z95.0
[2024-12-31 14:13] VITALS: BP 120/64; PULSE 60; BMI 29.3
--- OUTSIDE RECORDS SUMMARY | 2024-12-31 15:54 | XMS_ITS | Clinical Summary ---
Author Organization [facility] Address [address] [place] [id number] Phone Care Team Providers Care Professor Of Theology Name Role Phone Iris Ragland MD Primary Care Provider Lesa Jim FISH BAILER Unavailable [phone] Allergies Active Allergy Reactions Criticality Noted Date Comments Amoxicillin Hives,Other (See Comments),Swelling,Unknown 03/04/2023 Lisinopril Cough 06/02/2020 Medications venlafaxine (EFFEXOR XR) 37.5 MG 24 hr capsule 1 tablet with food Orally Once a day Active atorvastatin (LIPITOR) 40 MG tablet Take 1 tablet by mouth every morning. 12/08/2022 Active doxycycline hyclate (VIBRAMYCIN) 100 MG capsule TAKE ONE CAPSULE BY MOUTH TWICE A DAY FOR 7 DAYS WITH FOOD AND WATER 02/28/2023 Active hydroCHLOROthia zide (MICROZIDE) 12.5 mg capsule TAKE ONE CAPSULE BY MOUTH EVERY DAY Oral for 90 06/30/2022 Active levothyroxine (SYNTHROID, LEVOTHROID) 100 MCG tablet Take 1 tablet by mouth every morning. 12/08/2022 Active losartan (COZAAR) 100 MG tablet Take 1 tablet by mouth every morning. 12/08/2022 Active MILK THISTLE ORAL Take by mouth. Active coenzyme Q10 100 mg capsule Take 100 mg by mouth 2 (two) times a day. Active vhsbcsh-nytp-jz knt-olqd-foxfbw 100 mg-150 mg- 50 mg-150 mg Cap Take by mouth. Active vitamins A,C,E-zinc-alethea er (PRESERVISION AREDS) 4,296 mcg-226 mg-90 mg Cap Take 1 capsule by mouth 2 (two) times a day with meals. 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 elevated LFTs History of breast cancer in female 03/04/2023 03/04/2023 History of colonic polyps 03/04/20232022 Hypertension 03/04/2023 03/04/2023 Malignant melanoma of neck 03/04/202303/04 Overview (03/04/2023): September 2012, [place] Melanoma in situ 03/04/2023 03/04/2023 Mobitz type 2 second degree AV block 03/04/2023 03/04/2023 Moderate obstructive sleep apnea 03/04/2023 03/04/2023 Osteoporosis 03/04/2023 03/04/2023 Overview (03/04/2023): fem neck -2.5 Status post bilateral breast implants 03/04/2023 03/04/2023 Multiple thyroid nodules 03/04/2023 023 Depression 03/04/2023 03/04/2023 Pacemaker 09/23/2020 03/04/2023 Social History Tobacco Use Types Packs/Day Years Used Date Smoking Tobacco: Never Assessed Education Answer Date Recorded Are you interested in more education? Not on hussein e 02/11/2023 Are you concerned about learning? Not on file 02/11/2023 No 02/11/2023 No 02/11/2023 Digital Access Answer Date Recorded No 02/11/2023 No 02/11/2023 Reliable internet access at home? Not on file 02/11/2023 Device with a working camera? Not on file Comments Unknown Sex and Gender Information Value Date Recorded Sex Assigned at Female 02/15/2023 10:53 AM EST Legal Sex Female 10:00 PM EDT Gender Identity Female 02/15/2023 10:53 AM EST Sexual Orientation Straight 02/15/2023 10 :53 AM EST Plan of Treatment Upcoming Encounters Date Type Department Care Team (Late st Contact Info) Description 03/15/2025 11:45 AM EST Office Visit [facility] [address] [facility] 2nd [address], [address] [place] [address] Duncan Gary MD [address] [place] [address] [id number] [place] [address] [email or web address] Health Maintenance Due Date Last Done Comments Adult Td,Tdap Booster 1951 BLOOD PRESSURE 1951 CREATININE LEVEL 1951 LIPID PANEL 1951 POTASSIUM LEVEL 1951 TSH LEVEL 1951 DEPRESSION SCREENING 1963 SMOKING Hx and SMOKELESS TOBACCO SCREENING 07/21/1964 HEPATITIS C SCREENING 07/21/1969 PNEUMOCOCCAL VACCINES (50+ years) (1 of 2 - PCV) 07/21/1970 MAMMOGRAM 1991 COLOGUARD 07/21/1996 COLONOSCOPY 07/21/1996 COLORECTAL CANCER SCREENING 07/21/1996 FIT TEST 07/21/1996 FOBT 07/21/1996 SIGMOIDOSCOPY 07/21/1996 VIRTUAL COLONOSCOPY 07/21/1996 OSTEOPOROSIS SCREENING INITI AL (ONE-TIME) 07/21/2016 INFLUENZA VACCINE (#1) 2024 01/29/2018 COVID-19 VACCINE (2 - 2024-2 6 season) 2024 06/09/2020 RSV VACCINE (1 - 1-dose 75+ series) 07/21/2026 ZOSTER VACCINES Completed 04/28/2018, 02/08/2018 HEPATITIS A VACCINES Aged Out No long er eligible based on patient's age to complete this topic HIB VACCINES Aged Out No longer eligi ble based on patient's age to complete this topic MENINGOCOCCAL VACCINES (ACWY) Aged Out No longer eligible based on patient's age to complete this topic MENINGOCOCCAL VACCINES (B) Aged Out N o longer eligible based on patient's age to complete this topic Medical Devices Not on file Insurance MEDICARE PART A & B [employer] MEDEX SUPPLEMENT MEDICARE PART A & B [employer] MEDEX SUPPLEMENT MEDICARE PART A & B [employer] MEDEX SUPPLEMENT MEDICARE PART A & B [employer] MEDEX SUPPLEMENT MEDICARE PART A & B [employer] MEDEX SUPPLEMENT MEDICARE PART A & B [employer] MEDEX SUPPLEMENT Care Teams Professor Of Theology Relationship Specialty Start Date End Date Iris Ragland [facility] [place] [address] PCP - General Family Medicine 02/15/23 Lesa Jim NP [facility] [address] Nurse Practitioner 02/17/23 Additional Source Comments The information contained in this document represents components of the legal health record. It is not the complete legal health record.[facility]
--- OUTSIDE RECORDS SUMMARY | 2024-12-31 15:54 | XMS_ITS | Patient Health Record ---
Author Organization [facility] Address [address] [place] [address] Care Team Providers Care Apparel Cutter Name Role Phone Iris Ragland MD Primary Care Provider Un available Néstor Ordaz Unavailable [phone] Allergies Allergen (clinical drug ingredient) Drug/Non Drug [...] Problem Status W/U Status Risk Notes Problem 920659281 Encounter for screening for malignant neoplasm of colon (Z12.11) Active confirmed Problem History of polyp of colon (situation) (131850682) Personal history of colonic polyps (Z86.010) Active confirmed Problem Diverticular disease of colon (158472854) Diverticulosis of large intestine without perforation or abscess without bleeding (K57.30) Active confirmed Problem 778246597 History of colon polyps (Z86.010) Active confirmed Problem 63797468 Constipation, unspecified constipation type (K59.00) Active confirmed Problem 43798790 Hypertension, unspecified type (I10) Active confirmed Problem 464977819 Right flank pain (R10.9) Active confirmed Plan Of Treatment Future Test Test Name Order Date COLONOSCOPY 07/29/2017 COLONOSCOPY 11/17/2022 Insurance Providers Payer Name Payer Address Payer Phone Subscriber Number Group Number Insured Name Patient Relationship to Insured Coverage Start Date Coverage End Date MEDICARE OF [place] [address] [place] [address] [id number] LITO NGUYEN Self - patient is the insured MEDEX ATTN CLAIMS [address] [place] [phone] [id number] LITO NGUYEN Self - patient is the insured Medical (General) History Medical History History ICD Code Breast cancer--1999--on the left--initial lumpectomy, and eventual bilateral mastectomy--then chemo and Tamoxifen Hypothyroidism Depression Denies AR,DM,CVA,Lung disease,renal dise ase Neg. colonoscopy in 2001 [...] colonoscopy in 09/2017 Hyperlipidemia Melanomas removed by [employer] [facility] Surgical History Surgery Date(Month/Year) Bilateral mastectomy with reconstruction 1999 Appendectomy 2007 Tonsillectomy Benign uterine polyp Pacemaker 2020
== END 2024-12-31 14:33 | disposition home or self-care (01) ==
LOC: HO.HCS 14:07
PROVIDERS: PCP Family Medicine; Visit Provider Internal Medicine Cardiovascular Disease
DX: I48.0 Paroxysmal atrial fibrillation (principal); Z95.0 Presence of cardiac pacemaker
CPT/HCPCS: 99214

== ENCOUNTER → 2024-12-31 14:07 | Outpatient (BNVA) | payer MEDICARE, SELFPAY | PROVIDERS: PCP Family Medicine; Visit Provider Internal Medicine Cardiovascular Disease | DX: I48.0 Paroxysmal atrial fibrillation (principal); Z95.0 Presence of cardiac pacemaker; I10 Essential (primary) hypertension | CPT/HCPCS: 99212 ==

== ENCOUNTER → 2025-02-08 23:59 | Outpatient (BNV) | payer MEDICARE, SELFPAY ==
--- NOTE | 2025-02-15 21:30 | A.OFFVIS_ITS ---
Intake Visit Reasons: Remote device check- Medtronic Allergies amoxicillin (Amoxicillin) Allergy (Intermediate, Verified 05/03/23 14:46) HIVES/RASH/LIP SWELLING lisinopril Adverse Reaction (Intermediate, Verified 05/03/23 14:46) Cough PFSH Medical History Bradycardia Pacemaker Dyspnea on exertion Depression Lymphedema Melanoma CASSIE (obstructive sleep apnea) Hypothyroidism Breast CA HLD (hyperlipidemia) HTN (hypertension) Surgical History History of permanent cardiac pacemaker placement Hx of appendectomy Status post bilateral breast reconstruction Hx of colonoscopy History of bilateral mastectomy Family History Mother Congestive heart failure Heart attack Father Peripheral artery disease Social History Household Members: Spouse Housing: House Do you presently have visiting nurse or other home services: No Alcohol intake: never Patient Tobacco Use Status: Former Tobacco user Tobacco use type: Cigarette Years Smoked: 10 +/- on and off Advance Directives Date on File: 09/23/20 service: No Current occupational status: employed Office Procedures Cardiac Device Check Cardiac Device Check Details: PPM Good battery life WAGE HAND 100% No new alerts. [id number] Cardiac Device Interrogation, pacemaker Procedure code (CPT) selection complete Assessment & Plan Assessment & Plan (1) Status post cardiac pacemaker procedure: Comment: Medtronic Dual Chamber Code(s): Z95.0 - Presence of cardiac pacemaker Category: Surgical Plan Coding Level of Care Code Procedure Only Diagnoses Status post cardiac pacemaker procedure Z95.0 CPT Codes Cardiac Device Check - Cardiac Device 12: [id number] Cardiac Device In [facility], pacemaker ([id number])
== END ==
PROVIDERS: PCP Family Medicine; Visit Provider Internal Medicine Cardiovascular Disease
DX: Z45.018 Encounter for adjustment and management of other part of cardiac pacemaker (principal)
CPT/HCPCS: 93294

== ENCOUNTER → 2025-02-25 19:44 | Outpatient (BNV) | payer MEDICARE, SELFPAY | PROVIDERS: PCP Family Medicine; Visit Provider Internal Medicine Cardiovascular Disease | DX: Z45.018 Encounter for adjustment and management of other part of cardiac pacemaker (principal) | CPT/HCPCS: 93294 ==